=== PATIENT | male | born 1945 | race Caucasian/White ===

== ENCOUNTER → 2018-04-18 09:22 | Outpatient (CLI) | payer MEDICARE, OTHER, SELFPAY ==
[2018-04-18 10:42] LABS: AST(SGOT) 19 U/L (15-37); Alanine Aminotransfer ALT/SGPT 39 U/L (16-61); Albumin, Serum 3.9 g/dL (3.2-5.0); Alkaline Phosphatase 95 U/L (45-117); Anion Gap 9 (5-15); BUN 21 mg/dL (7-18); BUN/Creat Ratio 16.3 RATIO (10-20); Chloride 106 mmol/L (98-107); Cholesterol 246 mg/dL (200); Creatinine, Serum 1.29 mg/dL (0.70-1.30); EST Glomerular Filtration Rate 58 mL/min (>60); Est Glom Filt Rate - Afr Amer 71 mL/min (>60); Free T3 1.9 pg/mL (2.18-3.98); Globulin 3.8 g/dL (2.2-4.2); Glucose 117 mg/dL (74-106); High Density Lipoprotein 41 mg/dL; PSA,Total - Annual Screen 2.71 ng/mL (0.00-4.00); Potassium 4.2 mmol/L (3.5-5.1); Protein, Total 7.7 g/dL (6.4-8.2); Sodium Level 138 mmol/L (136-145); Triglycerides 330 mg/dL; Uric Acid 8.9 mg/dL (3.5-7.2); Very Low Density Lipoprotein 66 mg/dL (5-40)
== END ==
PROVIDERS: Family Provider Family Medicine; PCP Family Medicine; Visit Provider Family Medicine
DX: N40.0 Benign prostatic hyperplasia without lower urinary tract symptoms (principal); E78.5 Hyperlipidemia, unspecified; M10.9 Gout, unspecified; E03.9 Hypothyroidism, unspecified; I10 Essential (primary) hypertension; Z12.5 Encounter for screening for malignant neoplasm of prostate
CPT/HCPCS: 36415; 80048; 80061; 80076; 84153; 84443; 84481; 84550; G0103

== ENCOUNTER → 2018-07-18 08:48 | Outpatient (CLI) | payer MEDICARE, OTHER, SELFPAY ==
[2014-11-02 18:21] VITALS: BMI 38.9
[2018-07-18 10:51] LABS: Anion Gap 8 (5-15); BUN 24 mg/dL (7-18); BUN/Creat Ratio 16.9 RATIO (10-20); Calcium,Total 8.2 mg/dL (8.5-10.1); Chloride 110 mmol/L (98-107); Cholesterol 161 mg/dL (200); Creatinine, Serum 1.42 mg/dL (0.70-1.30); EST Glomerular Filtration Rate 52 mL/min (>60); Est Glom Filt Rate - Afr Amer 63 mL/min (>60); Free T3 2.6 pg/mL (2.18-3.98); Glucose 132 mg/dL (74-106); High Density Lipoprotein 40 mg/dL; Sodium Level 140 mmol/L (136-145); T4 Total, Thyroxin 10.5 ug/dL (4.5-12.1); Thyroid Stim Hormone (TSH) 0.55 uIU/mL (0.358-3.74); Triglycerides 216 mg/dL; Very Low Density Lipoprotein 43 mg/dL (5-40)
--- OUTSIDE RECORDS SUMMARY | 2018-09-03 02:03 | XMS RPT_ITS ---
:1945 Author Organization OHIP Care Team Providers Name Role Phone AKI GOMES Referring Unavailable Saurabh Ferrer Attending Unavailable Saurabh Ferrer Primary Care Unavailable Saurabh Ferrer Attending Unavailable Saurabh Ferrer Primary Care Unavailable PROBLEMS PROBLEMS DATE TYPE CONDITION / CODE ATTENDING STATUS SOURCE 07/18/2018 Unknown E03.9 - Saurabh Ferrer Active [place] Hypothyroidism, Community unspecified / Hospital E03.9(ICD-10) Repository 07/18/2018 Unknown I10 - Essential Saurabh Ferrer Active [place] (primary) Community hypertension / Hospital I10(ICD-10) Repository 04/18/2018 Unknown N40.0 - Benign Saurabh Ferrer Active [place] prostatic Community hyperplasia without Hospital lower urinary tract Repository symptoms / N40.0(ICD-10) 04/18/2018 Unknown E78.5 - Saurabh Ferrer Active [place] Hyperlipidemia, Community unspecified / Hospital E78.5(ICD-10) Repository 04/18/2018 Unknown M10.9 - Gout, Saurabh Ferrer Active [place] unspecified / Community M10.9(ICD-10) Hospital Repository 05/03/2015 Active Essential (primary) NA Active [place] hypertension / Clinic Main I10(ICD-10) [place] Repository 03/12/2012 Active Postprocedural NA Active [place] hypothyroidism / Clinic Main E89.0(ICD-10) [place] Repository 11/29/2009 Active Hyperlipidemia, NA Active [place] unspecified / Clinic Main E78.5(ICD-10) [place] Repository 09/20/2017 Active Prediabetes / NA Active [place] R73.03(ICD-10) Clinic Main [place] Repository 09/20/2017 Active Encounter for NA Active [place] screening for [facility] malignant neoplasm [place] of prostate / Repository Z12.5(ICD-10) PROCEDURES PROCEDURES No Procedure Records FoundRESULTS RESULTS BASIC METABOLIC Collected: 07/18/2018 Status: F Source: [place] PROFILE (BMP) 8:50 AM [facility] REPOSITORY TYPE CODE TESTS RESULT OUT OF RANGE REFERENCE UNITS LAB L501.0100 74-106 mg/dL High GLU 132 Result Comment: Fasting Glucose result greater than or equal to 126 mg/dL suggests DIABETES MELLITUS per A.D.A. criteria. Please note revised GLUCOSE reference range effective 2017. LAB L501.1000 7-18 mg/dL High BUN 24 LAB L501.1100 0.70-1.30 mg/dL High CREAT,SERUM 1.42 Result Comment: The validity of the calculated GFR AND GFRAA in patients over 70 years has not been determined. Clinical correlation is essential. LAB L501.1110 >60 mL/min Low EST GFR 52 Result Comment: Non- GFR Calc LAB L501.1115 >60 mL/min Normal EST GFR - AA 63 Result Comment: GFR Calc LAB L501.1300 10-20 RATIO Normal BUN/CRE 16.9 LAB L501.2200 8.5-10.1 mg/dL Low CA 8.2 LAB L501.5300 136-145 mmol/L NA Normal 140 LAB L501.5600 3.5-5.1 mmol/L K Normal 4.0 LAB L501.5900 98-107 mmol/L High CL 110 LAB L501.6100 21.0-32.0 mmol/L Normal CO2 22.0 LAB L501.6200 5-15 Normal GAP 8 Performed By: #### L500.2500, L500.4100, L501.36621, L501.9310, L501.9520 #### [facility] [address] [place], [address] LIPID PROFILE Collected: 07/18/2018 Status: F Source: [place] 8:50 AM [facility] REPOSITORY TYPE CODE TESTS RESULT OUT OF RANGE REFERENCE UNITS LAB L501.4900 200 mg/dL Normal CHOL 161 Result Comment: <200 mg/dL Desirable 200-240 mg/dL Borderline >240 mg/dL High Risk LAB L501.5000 mg/dL High TRIG 216 Result Comment: The drugs N-Acetylcysteine and Metamizole may falsely depress this assay. Serum Triglycerides Reference Interval Normal <150 mg/dL Borderline high 150 - 199 mg/dL High 200 - 499 mg/dL Very High > or = 500 mg/dL LAB L501.6400 mg/dL Normal HDL 40 Result Comment: The drugs N-Acetylcysteine and Metamizole may falsely depress this assay. Reference Range HDL <40 mg/dL Low HDL Cholesterol HDL >or= 60 mg/dL High HDL Cholesterol LAB L501.6500 0-130 mg/dL Normal LDL 78 LAB L501.6600 5-40 mg/dL High VLDL 43 Performed By: #### L500.2500, L500.4100, L501.90849, L501.9310, L501.9520 #### [facility] [address] [place], [place], [id number] FREE T3 Collected: 07/18/2018 Status: F Source: [place] 8:50 AM [facility] REPOSITORY TYPE CODE TESTS RESULT OUT OF RANGE REFERENCE UNITS LAB L501.15599 2.18-3.98 pg/mL Normal FREE T3 2.6 Performed By: #### L500.2500, L500.4100, L501.63824, L501.9310, L501.9520 #### [facility] [address] [place], [place], [id number] T4 TOTAL, THYROXIN Collected: 07/18/2018 Status: F Source: [place] 8:50 AM [facility] REPOSITORY TYPE CODE TESTS RESULT OUT OF RANGE REFERENCE UNITS LAB L501.9310 4.5-12.1 ug/dL T4 Normal THYROXIN 10.5 Performed By: #### L500.2500, L500.4100, L501.87001, L501.9310, L501.9520 #### [facility] [address] [place], [address] THYROID STIM HORMONE Collected: 07/18/2018 Status: F Source: [place] (TSH) 8:50 AM [facility] REPOSITORY TYPE CODE TESTS RESULT OUT OF RANGE REFERENCE UNITS LAB L501.9520 0.358-3.74 uIU/mL Normal TSH 0.55 Performed By: #### L500.2500, L500.4100, L501.60863, L501.9310, L501.9520 #### [facility] [address] [place], [place], [id number] BASIC METABOLIC Collected: 04/18/2018 Status: F Source: [place] PROFILE (BMP) 9:28 AM [facility] REPOSITORY TYPE CODE TESTS RESULT OUT OF RANGE REFERENCE UNITS LAB L501.0100 74-106 mg/dL High GLU 117 Result Comment: Fasting Glucose result from 100 to 125 mg/dL suggests IMPAIRED HOMEOSTASIS per A.D.A. criteria. Please note revised GLUCOSE reference range effective 2017. LAB L501.1000 7-18 mg/dL High BUN 21 LAB L501.1100 0.70-1.30 mg/dL Normal CREAT,SERUM 1.29 Result Comment: The validity of the calculated GFR AND GFRAA in patients over 70 years has not been determined. Clinical correlation is essential. LAB L501.1110 >60 mL/min Low EST GFR 58 Result Comment: Non- GFR Calc LAB L501.1115 >60 mL/min Normal EST GFR - AA 71 Result Comment: GFR Calc LAB L501.1300 10-20 RATIO Normal BUN/CRE 16.3 LAB L501.2200 8.5-10.1 mg/dL CA Normal 9.0 LAB L501.5300 136-145 mmol/L NA Normal 138 LAB L501.5600 3.5-5.1 mmol/L K Normal 4.2 LAB L501.5900 98-107 mmol/L CL Normal 106 LAB L501.6100 21.0-32.0 mmol/L Normal CO2 23.0 LAB L501.6200 5-15 Normal GAP 9 Performed By: #### L500.2500, L500.3400, L500.4100, L501.1400, L501.52130, L501.9520, L501.9910 #### [facility] [address] [place], [place], [id number] LIVER PROFILE Collected: 04/18/2018 Status: F Source: [place] 9:28 AM [facility] REPOSITORY TYPE CODE TESTS RESULT OUT OF RANGE REFERENCE UNITS LAB L501.1500 6.4-8.2 g/dL Normal T PROT 7.7 LAB L501.1800 3.2-5.0 g/dL Normal ALB 3.9 LAB L501.1950 2.2-4.2 g/dL Normal GLOB 3.8 LAB L501.4100 15-37 U/L Normal AST 19 LAB L501.4305 45-117 U/L Normal ALK P 95 LAB L501.4405 16-61 U/L Normal ALT 39 LAB L501.4600 0.20-1.00 mg/dL High T BILI 1.30 LAB L501.4700 0.00-0.30 mg/dL Normal D BILI 0.20 Performed By: #### L500.2500, L500.3400, L500.4100, L501.1400, L501.81598, L501.9520, L501.9910 #### [facility] [address] [place], [address] LIPID PROFILE Collected: 04/18/2018 Status: F Source: [place] 9:28 AM [facility] REPOSITORY TYPE CODE TESTS RESULT OUT OF RANGE REFERENCE UNITS LAB L501.4900 200 mg/dL High CHOL 246 Result Comment: <200 mg/dL Desirable 200-240 mg/dL Borderline >240 mg/dL High Risk LAB L501.5000 mg/dL High TRIG 330 Result Comment: The drugs N-Acetylcysteine and Metamizole may falsely depress this assay. Serum Triglycerides Reference Interval Normal <150 mg/dL Borderline high 150 - 199 mg/dL High 200 - 499 mg/dL Very High > or = 500 mg/dL LAB L501.6400 mg/dL Normal HDL 41 Result Comment: The drugs N-Acetylcysteine and Metamizole may falsely depress this assay. Reference Range HDL <40 mg/dL Low HDL Cholesterol HDL >or= 60 mg/dL High HDL Cholesterol LAB L501.6500 0-130 mg/dL High LDL 139 LAB L501.6600 5-40 mg/dL High VLDL 66 Performed By: #### L500.2500, L500.3400, L500.4100, L501.1400, L501.62738, L501.9520, L501.9910 #### [facility] [address] [place], [address] URIC ACID Collected: 04/18/2018 Status: F Source: [place] 9:28 AM [facility] REPOSITORY TYPE CODE TESTS RESULT OUT OF RANGE REFERENCE UNITS LAB L501.1400 3.5-7.2 mg/dL High URIC 8.9 Result Comment: The drugs N-Acetylcysteine and Metamizole may falsely depress this assay. Performed By: #### L500.2500, L500.3400, L500.4100, L501.1400, L501.20959, L501.9520, L501.9910 #### [facility] [address] [place], [address] FREE T3 Collected: 04/18/2018 Status: F Source: [place] 9:28 AM [facility] REPOSITORY TYPE CODE TESTS RESULT OUT OF RANGE REFERENCE UNITS LAB L501.62637 2.18-3.98 pg/mL Low FREE T3 1.9 Performed By: #### L500.2500, L500.3400, L500.4100, L501.1400, L501.94368, L501.9520, L501.9910 #### [facility] [address] [place], [address] THYROID STIM HORMONE Collected: 04/18/2018 Status: F Source: [place] (TSH) 9:28 AM [facility] REPOSITORY TYPE CODE TESTS RESULT OUT OF RANGE REFERENCE UNITS LAB L501.9520 0.358-3.74 uIU/mL High TSH 37.00 Performed By: #### L500.2500, L500.3400, L500.4100, L501.1400, L501.68425, L501.9520, L501.9910 #### [facility] [address] [place], [address] PSA,TOTAL - ANNUAL Collected: 04/18/2018 Status: F Source: [place] SCREEN 9:28 AM [facility] TYPE CODE TESTS RESULT OUT OF RANGE REFERENCE UNITS LAB L501.9910 0.00-4.00 ng/mL Normal PSA,TOT 2.71 SCREEN Result Comment: This test was performed using the TPSA assay method for the Octamer chemistry system. Values obtained with different assay methods cannot be used interchangably. When changing PSA assays in the course of monitoring a patient, additional sequential testing should be carried out to confirm baseline values. Performed By: #### L500.2500, L500.3400, L500.4100, L501.1400, L501.74136, L501.9520, L501.9910 #### [facility] [address] [facility] [place], [place], [id number] HEMOGLOBIN A1C Collected: 09/20/2017 Status: F Source: [place] 9:41 AM [facility] REPOSITORY TYPE CODE TESTS RESULT OUT OF REFERENCE UNITS RANGE LAB HGBA1C 4.3-5.6 % High Hemoglobin A1c 5.7 LAB HBA0 mg/dL Est. Average Glucose 117 Result Comment: eAG: (Estimated average glucose) is a calculated value from HgbA1c and is inside outside sales representative of the average blood glucose level in the last 2-3 month period. Performed By: #### HBA1C, CMP, LIPB, TSH, PSAS1 #### [facility] [address], [place] [address] COMP METABOLIC PANEL Collected: 09/20/2017 Status: F Source: [place] 9:41 AM [facility] REPOSITORY TYPE CODE TESTS RESULT OUT OF REFERENCE UNITS RANGE LAB TP 6.3-8.0 g/dL Protein, Total 6.9 LAB ALB 3.9-4.9 g/dL Albumin 4.1 LAB CA 8.5-10.2 mg/dL Calcium, Total 8.8 LAB TBIL 0.2-1.3 mg/dL Bilirubin, High Total 1.6 LAB ALKP 36-108 U/L Alkaline Phosphatase 88 LAB AST 14-40 U/L AST 22 LAB GLU 74-99 mg/dL Glucose High 117 Result Comment: The [place] Diabetes Association (ADA) provides guidance for cutoff values for fasting glucose and random glucose. The ADA defines fasting as no caloric intake for at least 8 hours. Fas ting plasma glucose results between 100 to 125 mg/dL indicate increased risk for diabetes (prediabetes). Fasting plasma glucose results greater than or equal to 126 mg/dL meet the criteria for diagnosis of diabetes. In the absence of unequivocal hyperglycemia, results should be confirmed by repeat testing. In a patient with classic symptoms of hyperglycemia or hyperglycemic crisis, random plasma glucose results greater than or equal to 200 mg/dL meet the criteria for diagnosis of diabetes. Reference: Standards of Medical Care in Diabetes 2016, [place] Diabetes Association. Diabetes Care. 2016.39(Suppl 1). LAB BUN 9-24 mg/dL BUN 14 LAB CRET 0.73-1.22 mg/dL Creatinine 1.07 LAB NA 136-144 mmol/L Sodium 138 LAB K 3.7-5.1 mmol/L Potassium 4.7 LAB CL 97-105 mmol/L Chloride 101 LAB CO2 22-30 mmol/L CO2 22 LAB AGAP 9-18 mmol/L Anion Gap 15 LAB ALT 10-54 U/L ALT 24 LAB GFRAA eGFR- Amer. >60 LAB GFRNAA . eGFR-All Other Races >60 Result Comment: eGFR (Estimated GFR) Units of measure: mL/min/1.73 meters squared eGFR is derived from the reexpressed MDRD Study equation using the following parameters: serum creatinine, age, gender and race. The creatinine assay has been calibrated to be traceable to IDMS. An eGFR <60 mL/min/1.73m2 for >3 months is consistent with chronic kidney disease. Refer to KDOQI guidelines for clinical interpretation. In patients with unstable renal function, e.g. those with acute kidney injury, the eGFR may not accurately reflect actual GFR. Performed By: #### HBA1C, CMP, LIPB, TSH, PSAS1 #### [facility] [address] [place], [place] [address] LIPID PANEL, BASIC Collected: 09/20/2017 Status: F Source: [place] 9:41 AM [facility] REPOSITORY TYPE CODE TESTS RESULT OUT OF REFERENCE UNITS RANGE LAB CHOL <200 mg/dL Cholesterol High 207 Result Comment: <200 mg/dL, Desirable 200-239 mg/dL, Borderline high >239 mg/dL, High LAB TRIGLY <150 mg/dL Triglyceride High 388 Result Comment: <150 mg/dL, Normal 150-199 mg/dL, Borderline high 200-499 mg/dL, High >499 mg/dL, Very high LAB HDL >39 mg/dL HDL-Cholesterol Low 33 Result Comment: 40-59 mg/dL, Acceptable >59 mg/dL, High: Negative risk factor for coronary heart disease <40 mg/dL, Low: Positive risk factor for coronary heart disease LAB LDL <100 mg/dL LDL-Cholesterol 96 Result Comment: <100 mg/dL, Optimal 100-129 mg/dL, Near optimal/above optimal 130-159 mg/dL, Borderline high 160-189 mg/dL, High >189 mg/dL, Very high Secondary prevention optimal LDL Cholesterol levels are recommended to be < 70 mg/dL LAB NONHDL <130 mg/dL Non HDL High Cholesterol 174 Result Comment: <130 mg/dL, Optimal 130-159 mg/dL, Near optimal/above optimal 160-189 mg/dL, Borderline high 190-219 mg/dL, High >219 mg/dL, Very high Secondary prevention optimal non HDL Cholesterol levels are recommended to be < 100 mg/dL LAB FT hrs Fasting Time 11 LAB VLDL <30 mg/dL High VLDL Cholesterol 78 LAB TCHDL <5.10 High TC:HDL Ratio 6.27 LAB LDLHDL <2.54 High LDL:HDL Ratio 2.91 Result Comment: Reference: 1. National Cholesterol Education Program ATP III Guideline At-A-Glance Quick Desk Reference: National Heart, Lung, and Blood Wink. National Institutes of Health. 2001: NIH Publication No. 01-3305. 2. An International Atherosclerosis Society position paper: global recommendations for the management of dyslipidemia: executive summary, Atherosclerosis. 2014: 232(2):410-413. Performed By: #### HBA1C, CMP, LIPB, TSH, PSAS1 #### [facility] [address] [place] [id number] TSH Collected: 09/20/2017 Status: F Source: [place] 9:41 AM [facility] REPOSITORY TYPE CODE TESTS RESULT OUT OF RANGE REFERENCE UNITS LAB TSH 0.400-5.500 uU/mL High TSH 16.690 Performed By: #### HBA1C, CMP, LIPB, TSH, PSAS1 #### [facility] [address] [place], [place] [address] PSA, SCREENING Collected: 09/20/2017 Status: F Source: [place] 9:41 AM [facility] REPOSITORY TYPE CODE TESTS RESULT OUT OF REFERENCE UNITS RANGE LAB PSAS 0.00-2.59 ng/mL PSA, Screening 2.48 Result Comment: Total PSA test methodology used is the Electrochemiluminescence Immunoassay. Performed By: #### HBA1C, CMP, LIPB, TSH, PSAS1 #### [facility] [address] [place] [address] ALLERGIES ALLERGIES DATE TYPE / CODE NAME / CODE REACTION SEVERITY SOURCE 11/02/2014 Drug chocolate Other Unknown [facility] Allergy/416 flavor/[id number] Hospital 563735(SNOM 3(RXNORM) Repository ED CT) 11/17/2010 Food/510554 CHOCOLATE OTHER: SEE C [facility] 000(SNOMED [facility] CT) Repository ENCOUNTERS ENCOUNTERS ADMIT/DISCHARGE ACCOUNT ADMITTING ENCOUNTER LOCATION SOURCE NUMBER CLASS 07/18/2018 [id number] [facility] ing:MFPLAB Repository 04/18/2018 [id number] [facility] ing:MFPLAB Repository 09/20/2017/09/20/[id number] Repository PAYERS PAYERS ENCOUNTER GUARANTOR PAYER SUBSCRIBER SOURCE 07/18/2018 Dago Grady Primary Dago [id number] Insurance:MEDICARE ButlerDOB: [place], [place] PART A [facility] [id number] [facility] [address]Jov: (330) Number: Repository [phone] ) [id number] Date:2018-07-18 07/18/2018 Secondary Dago P Kathy Insurance:AARPPolicy ButlerDOB: [facility] Number: [id number] [facility] [id number] Repository Date:[id number], [place] [address]TA: 07/18/2018 Tertiary NOT GIVENUNK [place] Insurance:SELF PAY [facility] Number: Effective Repository Date:2018-07-18 04/18/2018 Dago Grady Primary Dago [id number] Insurance:MEDICARE ButlerDOB: [place], [place] PART A BPolicy [id number] [facility] [address]Ndy: (330) Number: Repository [phone] () [id number] Date:2018-04-18 04/18/2018 Secondary Dago Chavez Insurance:AARTHAolicjacque LuqueB: Community Number: [id number] Hospital [id number] Repository Date:[id number], [place] [address]XH: 04/18/2018 Tertiary NOT GIVENADRIANA [place] Insurance:SELF PAY [facility] Number: Effective Repository Date:2018-04-18
== END ==
PROVIDERS: Family Provider Family Medicine; PCP Family Medicine; Visit Provider Family Medicine
DX: E03.9 Hypothyroidism, unspecified (principal); I10 Essential (primary) hypertension
CPT/HCPCS: 36415; 80048; 80061; 84436; 84443; 84481

== ENCOUNTER 2019-01-14 09:00 | Outpatient (RCR) | payer MEDICARE, OTHER, SELFPAY ==
--- NOTE | 2018-12-02 10:31 | HP.PTEVAL ---
Patient's Visit Information DAGO KAYE is a 73 year old M referred to Physical Therapy by Saurabh Ferrer MD with a diagnosis of Arthritis. Date of Evaluation: 12/02/18 Physical Therapist: Miky Awad PT, ATC - Visit Plan Frequency: 2x /Week Duration: 4 Weeks Plan: B LE strengthening, core stab ex's, balance and poprio ex's, nustep, and HEP - Subjective Findings: Pt reports he is here today because he is so limited with his function. Pt reports he is on disability secondary to LBP and fatigue. Pt reports he has limitations where he is not supposed to walk greater than 250 feet, and he is not supposed to lift over 20 pounds. Pt reports he has significant difficulty with stair negotiation. Pt reports he is able to walk to his mailbox, but has to stop and rest on his post for a while secondary to fatigue and pain. Pt reports he has had LBP for several years, but his pain has progressively worsened. Pt reports he uses a wheel chair on occasion, but his legs and arms fatigue very quickly. 4/10 LBP at rest, 10/10 at worst - Pain LBP Pain Intensity (Out of 10): 4 Pain Intensity Range: 10 - Objective Neuro: B LE sensation is WNL to light touch. B patellar reflex= 2/3. MMT: B hip flex, knee flex, and knee ext= 4-/5 and painful. All other LE MMT 5/5 throughout. ROM: Pt is severely limited with lumbar spine extension. Pt is moderately limited in all other planes. Gait: Pt is able to ambulate approximately 110 feet with standard cane until needing to sit down secondary to pain and fatigue. Balance. Pt is able to stand for 30 seconds with eyes open without deviation. Pt demonstrates significant forward and backwards sway with eyes closed - Goals Goal 1:: Decrease LBP x 50% to aid with increasing tolerance for ambulation Goal Time Frame: 4-6 Weeks Goal 2:: Increase B LE strength x 1 grade to aid with stair negotiation Goal Time Frame: 4-6 Weeks Goal 3:: Pt will be able to ambulate greater than 200' with cane until needing to rest to aid with community ambulation Goal Time Frame: 4-6 Weeks Goal 4:: I with HEP Goal Time Frame: 4-6 Weeks - Rehabilitation Potential Physical Therapy Diagnosis: Pt has LBP and B LE pain secondary to arthritis Rehabilitation Potential: Good - Anticipated Interventions Patient/Client Instruction: Educate patient on: Condition, Plan of Care For the Purpose of:: To improve self management Therapeutic Exercise to Include: Strength training, Endurance training, Balance training, Gait and locomotor training, Dynamic Lumbar Stabilization For the Purpose of:: To decrease pain, To increase ROM, To improve muscle performance and motor function Thank you for the opportunity to evaluate your patient. For Medicare and Medicare HMO plans, please review the plan of care and approve it. It will need to be FAXED BACK to us at [phone] for Medicare purposes. For Medicare only, by signing this I certify the plan of care. Please let me know if there are questions or concerns regarding this plan of care. Physician Signature: Date:
--- NOTE | 2019-01-14 09:59 | HP.PTDCSUM ---
HP - PT D/C Summary It has been my pleasure to treat DAGO KAYE under orders from Saurabh Ferrer MD, for the diagnosis of Arthritis for a total of 9 visit(s). Discharge Date: Please see the following information for a summary of their discharge status. - Subjective Subjective: PT had no significant improvement. He now has higher BP. - Pain LBP Pain Intensity (Out of 10): 4 - Objective Objective/Function: LBP is 4/10 this date. R hip flex and Knee flex= 4-/5. All other B LE measurements= 5/5. Pt is able to ambulate 93 feet until needing to rest secondary to shortness of breath. Pt is not interested in a HEP at this time - Goals Goal 1:: Decrease LBP x 50% to aid with increasing tolerance for ambulation Goal Progress: Progressing Goal 2:: Increase B LE strength x 1 grade to aid with stair negotiation Goal Progress: Not Progressing Goal 3:: Pt will be able to ambulate greater than 200' with cane until needing to rest to aid with community ambulation Goal 4:: I with HEP - Plan Plan: Discontinue, RTD - D/C Information If there are questions or concerns regarding this patient's physical therapy, please feel free to call me at [phone]. Thank you for the referral of this patient. Sincerely, Miky Awad, PT, ATC
== END 2019-01-14 10:14 | disposition home or self-care (01) ==
LOC: PT 09:00
PROVIDERS: Family Provider Family Medicine; PCP Family Medicine; Referring Provider Family Medicine; Visit Provider Family Medicine
DX: M19.90 Unspecified osteoarthritis, unspecified site (principal)
CPT/HCPCS: 97110; 97161; 97530

== ENCOUNTER → 2019-01-15 08:38 | Outpatient (CLI) | payer MEDICARE, OTHER, SELFPAY ==
[2019-01-15 10:32] LABS: Anion Gap 10 (5-15); BUN 29 mg/dL (7-18); BUN/Creat Ratio 23.4 RATIO (10-20); Calcium,Total 9.3 mg/dL (8.5-10.1); Chloride 105 mmol/L (98-107); Creatinine, Serum 1.24 mg/dL (0.70-1.30); EST Glomerular Filtration Rate 61 mL/min (>60); Est Glom Filt Rate - Afr Amer 74 mL/min (>60); Glucose 124 mg/dL (74-106); Potassium 4.4 mmol/L (3.5-5.1); Sodium Level 140 mmol/L (136-145); Thyroid Stim Hormone (TSH) 0.02 uIU/mL (0.358-3.74)
== END ==
PROVIDERS: Family Provider Family Medicine; PCP Family Medicine; Referring Provider Family Medicine; Visit Provider Family Medicine
DX: E03.9 Hypothyroidism, unspecified (principal); I10 Essential (primary) hypertension
CPT/HCPCS: 36415; 80048; 84443

== ENCOUNTER → 2019-07-24 11:20 | Outpatient (CLI) | payer MEDICARE, OTHER, SELFPAY ==
[2014-11-02 18:21] VITALS: BMI 38.9
[2019-07-24 14:55] LABS: ALB/GLOB Ratio 1.3 RATIO (0.9-2.4); AST(SGOT) 22 U/L (15-37); Alanine Aminotransfer ALT/SGPT 35 U/L (16-61); Albumin, Serum 4.1 g/dL (3.2-5.0); Alkaline Phosphatase 88 U/L (45-117); Anion Gap 7 (5-15); BUN 22 mg/dL (7-18); BUN/Creat Ratio 16.1 RATIO (10-20); Calcium,Total 9.5 mg/dL (8.5-10.1); Chloride 111 mmol/L (98-107); Cholesterol 288 mg/dL (200); Creatinine, Serum 1.37 mg/dL (0.70-1.30); EST Glomerular Filtration Rate 54 mL/min (>60); Est Glom Filt Rate - Afr Amer 66 mL/min (>60); Free T3 1.3 pg/mL (2.18-3.98); Globulin 3.2 g/dL (2.2-4.2); Glucose 111 mg/dL (74-106); High Density Lipoprotein 45 mg/dL; Potassium 4.3 mmol/L (3.5-5.1); Protein, Total 7.3 g/dL (6.4-8.2); Sodium Level 142 mmol/L (136-145); T4 Total, Thyroxin 1.8 ug/dL (4.5-12.1); Triglycerides 253 mg/dL; Very Low Density Lipoprotein 51 mg/dL (5-40)
== END ==
PROVIDERS: Family Provider Family Medicine; PCP Family Medicine; Referring Provider Family Medicine; Visit Provider Family Medicine
DX: I10 Essential (primary) hypertension (principal); E03.9 Hypothyroidism, unspecified; E78.5 Hyperlipidemia, unspecified
CPT/HCPCS: 36415; 80053; 80061; 84436; 84443; 84481

== ENCOUNTER → 2020-01-23 10:05 | Outpatient (CLI) | payer MEDICARE, OTHER, SELFPAY ==
[2014-11-02 18:21] VITALS: BMI 38.9
[2020-01-23 12:35] LABS: T3 Total - Triiodothyronine 0.38 ng/mL (0.6-1.81)
[2020-01-23 13:57] LABS: Anion Gap 8 (5-15); BUN 24 mg/dL (7-18); BUN/Creat Ratio 15.9 RATIO (10-20); Calcium,Total 9.3 mg/dL (8.5-10.1); Chloride 104 mmol/L (98-107); Cholesterol 319 mg/dL (200); Creatinine, Serum 1.51 mg/dL (0.70-1.30); EST Glomerular Filtration Rate 48 mL/min (>60); Est Glom Filt Rate - Afr Amer 59 mL/min (>60); Glucose 139 mg/dL (74-106); High Density Lipoprotein 45 mg/dL; Potassium 4.3 mmol/L (3.5-5.1); Sodium Level 138 mmol/L (136-145); T4 Total, Thyroxin 3.9 ug/dL (4.5-12.1); Triglycerides 278 mg/dL; Very Low Density Lipoprotein 56 mg/dL (5-40)
== END ==
PROVIDERS: PCP Family Medicine; Visit Provider Family Medicine
DX: E03.9 Hypothyroidism, unspecified (principal); I10 Essential (primary) hypertension
CPT/HCPCS: 36415; 80048; 80061; 84436; 84443; 84480

== ENCOUNTER → 2020-03-01 08:33 | Outpatient (CLI) | payer MEDICARE, OTHER, SELFPAY ==
[2014-11-02 18:21] VITALS: BMI 38.9
[2020-03-01 10:17] LABS: Anion Gap 5 (5-15); BUN 20 mg/dL (7-18); BUN/Creat Ratio 15.4 RATIO (10-20); Calcium,Total 8.8 mg/dL (8.5-10.1); Chloride 109 mmol/L (98-107); EST Glomerular Filtration Rate 58 mL/min (>60); Est Glom Filt Rate - Afr Amer 70 mL/min (>60); Glucose 133 mg/dL (74-106); Potassium 4.1 mmol/L (3.5-5.1); Sodium Level 138 mmol/L (136-145); T3 Total - Triiodothyronine 1.28 ng/mL (0.6-1.81); T4 Total, Thyroxin 11.2 ug/dL (4.5-12.1); Thyroid Stim Hormone (TSH) 5.24 uIU/mL (0.358-3.74)
== END ==
PROVIDERS: PCP Family Medicine; Visit Provider Family Medicine
DX: E03.9 Hypothyroidism, unspecified (principal); I10 Essential (primary) hypertension
CPT/HCPCS: 36415; 80048; 84436; 84443; 84480

== ENCOUNTER → 2020-04-26 10:29 | Outpatient (CLI) | payer MEDICARE, OTHER, SELFPAY ==
[2014-11-02 18:21] VITALS: BMI 38.9
[2020-04-26 14:03] LABS: Anion Gap 9 (5-15); BUN 17 mg/dL (7-18); BUN/Creat Ratio 12.7 RATIO (10-20); Calcium,Total 8.9 mg/dL (8.5-10.1); Chloride 109 mmol/L (98-107); Cholesterol 249 mg/dL (200); Creatinine, Serum 1.34 mg/dL (0.70-1.30); EST Glomerular Filtration Rate 56 mL/min (>60); Est Glom Filt Rate - Afr Amer 67 mL/min (>60); Glucose 127 mg/dL (74-106); High Density Lipoprotein 38 mg/dL; Potassium 4.3 mmol/L (3.5-5.1); Sodium Level 141 mmol/L (136-145); Triglycerides 305 mg/dL; Very Low Density Lipoprotein 61 mg/dL (5-40)
== END ==
PROVIDERS: PCP Family Medicine; Referring Provider Family Medicine; Visit Provider Family Medicine
DX: E03.9 Hypothyroidism, unspecified (principal); E78.5 Hyperlipidemia, unspecified; R73.01 Impaired fasting glucose
CPT/HCPCS: 36415; 80048; 80061; 84443

== ENCOUNTER → 2020-10-25 10:35 | Outpatient (CLI) | payer MEDICARE, OTHER, SELFPAY ==
[2014-11-02 18:21] VITALS: BMI 38.9
[2020-10-25 12:38] LABS: AST(SGOT) 18 U/L (15-37); Alanine Aminotransfer ALT/SGPT 32 U/L (16-61); Albumin, Serum 3.8 g/dL (3.2-5.0); Alkaline Phosphatase 102 U/L (45-117); Anion Gap 5 (5-15); BUN 22 mg/dL (7-18); BUN/Creat Ratio 18.5 RATIO (10-20); Calcium,Total 9.2 mg/dL (8.5-10.1); Chloride 109 mmol/L (98-107); Cholesterol 244 mg/dL (200); Creatinine, Serum 1.19 mg/dL (0.70-1.30); EST Glomerular Filtration Rate 64 mL/min (>60); Est Glom Filt Rate - Afr Amer 77 mL/min (>60); Free T3 3.1 pg/mL (2.18-3.98); Globulin 3.7 g/dL (2.2-4.2); Glucose 122 mg/dL (74-106); High Density Lipoprotein 44 mg/dL; Potassium 4.1 mmol/L (3.5-5.1); Protein, Total 7.5 g/dL (6.4-8.2); Sodium Level 140 mmol/L (136-145); T4 Free Direct 1.93 ng/dL (0.76-1.46); Thyroid Stim Hormone (TSH) 0.02 uIU/mL (0.358-3.74); Triglycerides 199 mg/dL; Very Low Density Lipoprotein 40 mg/dL (5-40)
[2020-10-25 13:17] LABS: Microalbumin:Creatinine Ratio 1123.8 mg/g CRE (<30 mg/g CRE)
== END ==
PROVIDERS: PCP Family Medicine; Visit Provider Family Medicine
DX: E78.5 Hyperlipidemia, unspecified (principal); E03.9 Hypothyroidism, unspecified; I10 Essential (primary) hypertension
CPT/HCPCS: 36415; 80053; 80061; 82043; 82570; 84439; 84443; 84481

== ENCOUNTER → 2020-11-17 10:16 | Outpatient (CLI) | payer MEDICARE, OTHER, SELFPAY ==
--- NOTE | 2020-11-17 10:23 | VDLE_ITS ---
Reason For Study: Swelling Procedure LEFT Exam performed in department. GSV is normal. This is a venous duplex using B-mode, color CFV is compressible, spontaneous, phasic, flow and spectral Doppler. competent, and demonstrates normal A preliminary report was called and/or faxed augmentation. to Dr. Arroyo. FV is compressible, spontaneous, phasic, competent and demonstrates normal augmentation. POP V is compressible, spontaneous, phasic, competent and demonstrates normal augmentation. T/P Trunk is compressible. PTV is compressible. LT PerV is compressible. Very difficult to visualize calf veins due to edema and patient body habitus. VL/Venous Duplex US, Unilateral Interpretation Summary Deep veins of the left lower extremity are patent and compressible segmentally. There is no evidence of left lower extremity deep vein thrombosis. Valvular competence appears intac t within the proximal deep venous system on the left . The left great saphenous vein appears patent a nd compressible segmentally. The deep veins of the left calf were not well visualized. Ordering Physician: Mesha Arroyo Referring Physician: Saurabh Ferrer Performed By: Maria Del Carmen Hollis, KASI, RVT
== END ==
PROVIDERS: PCP Family Medicine; Referring Provider Family Medicine; Visit Provider Family Medicine
DX: M79.89 Other specified soft tissue disorders (principal)
CPT/HCPCS: 93971

== ENCOUNTER → 2021-01-17 09:29 | Outpatient (CLI) | payer MEDICARE, OTHER, SELFPAY ==
[2014-11-02 18:21] VITALS: BMI 38.9
[2021-01-17 10:06] LABS: Absolute Neutrophil Count 6.5 X10^3/uL (2.0-7.7); Basophil# 0.05 X10^3/uL; Basophil% 0.6 % (0-1); Eosinophil# 0.25 X10^3/uL; Eosinophils% 2.8 % (0-5); Hematocrit 50.1 % (40-54); Hemoglobin 16.9 g/dL (13.0-16.5); Lymphocyte % 16.9 % (19-41); Mean Corp Hgb Conc 33.7 g/dL (32-36); Mean Platelet Vol. 10.3 fl (6.2-12.0); Monocyte# 0.58 X10^3/uL; Monocyte% 6.5 % (0-10); NRBC Flagged by Analyzer 0 % (0-5); Neutrophil # 6.48 X10^3/uL (2.7-7.7); Neutrophil % 72.8 % (47-70); Platelet Count 203 K/mm3 (150-450); RBC Distribution Width CV 13.2 % (11.6-14.6); Red Blood Count 5.63 M/mm3 (4.6-6.2); White Blood Count 8.9 K/mm3 (4.4-11.0)
[2021-01-17 10:23] LABS: Hemoglobin A1c 6.2 % (3.8-5.6)
[2021-01-17 10:40] LABS: Anion Gap 8 (5-15); BUN 28 mg/dL (7-18); BUN/Creat Ratio 21.7 RATIO (10-20); Calcium,Total 9.2 mg/dL (8.5-10.1); Chloride 106 mmol/L (98-107); Cholesterol 243 mg/dL (200); Creatinine, Serum 1.29 mg/dL (0.70-1.30); EST Glomerular Filtration Rate 58 mL/min (>60); Est Glom Filt Rate - Afr Amer 70 mL/min (>60); Free T3 2.4 pg/mL (2.18-3.98); Glucose 133 mg/dL (74-106); High Density Lipoprotein 38 mg/dL; Potassium 4.4 mmol/L (3.5-5.1); Sodium Level 139 mmol/L (136-145); T4 Free Direct 1.27 ng/dL (0.76-1.46); Thyroid Stim Hormone (TSH) 0.19 uIU/mL (0.358-3.74); Triglycerides 288 mg/dL; Very Low Density Lipoprotein 58 mg/dL (5-40)
== END ==
PROVIDERS: PCP Family Medicine; Visit Provider Family Medicine
DX: I10 Essential (primary) hypertension (principal); R60.9 Edema, unspecified; E03.9 Hypothyroidism, unspecified; R73.9 Hyperglycemia, unspecified; Z12.5 Encounter for screening for malignant neoplasm of prostate
CPT/HCPCS: 36415; 80048; 80061; 83036; 84439; 84443; 84481; 85025

== ENCOUNTER → 2021-04-15 08:39 | Outpatient (CLI) | payer MEDICARE, OTHER, SELFPAY ==
[2021-04-15 12:39] LABS: Hemoglobin A1c 5.9 % (3.8-5.6)
[2021-04-15 12:40] LABS: Cholesterol 165 mg/dL (200); Free T3 2.5 pg/mL (2.18-3.98); High Density Lipoprotein 41 mg/dL; PSA,Total - Annual Screen 2.28 ng/mL (0.00-4.00); Thyroid Stim Hormone (TSH) 0.42 uIU/mL (0.358-3.74); Triglycerides 240 mg/dL; Very Low Density Lipoprotein 48 mg/dL (5-40)
== END ==
PROVIDERS: PCP Family Medicine; Referring Provider Family Medicine; Visit Provider Family Medicine
DX: R73.9 Hyperglycemia, unspecified (principal); E78.5 Hyperlipidemia, unspecified; E03.9 Hypothyroidism, unspecified; Z12.5 Encounter for screening for malignant neoplasm of prostate
CPT/HCPCS: 36415; 80061; 83036; 84153; 84443; 84481; G0103

== ENCOUNTER 2021-09-23 08:26 | Outpatient (CLI) | payer MEDICARE, OTHER, SELFPAY ==
[2021-09-23 10:25] LABS: Anion Gap 9 (5-15); BUN 26 mg/dL (7-18); BUN/Creat Ratio 19.5 RATIO (10-20); Calcium,Total 9.2 mg/dL (8.5-10.1); Chloride 105 mmol/L (98-107); Cholesterol 187 mg/dL (200); Creatinine, Serum 1.33 mg/dL (0.70-1.30); EST Glomerular Filtration Rate 56 mL/min (>60); Est Glom Filt Rate - Afr Amer 68 mL/min (>60); Free T3 2.1 pg/mL (2.18-3.98); Glucose 123 mg/dL (74-106); High Density Lipoprotein 39 mg/dL; Potassium 4.5 mmol/L (3.5-5.1); Sodium Level 139 mmol/L (136-145); T4 Free Direct 1.27 ng/dL (0.76-1.46); Thyroid Stim Hormone (TSH) 0.61 uIU/mL (0.358-3.74); Triglycerides 224 mg/dL; Very Low Density Lipoprotein 45 mg/dL (5-40)
== END 2021-09-23 23:59 | disposition home or self-care (01) ==
LOC: MFPLAB 08:28
PROVIDERS: PCP Family Medicine; Referring Provider Family Medicine; Visit Provider Family Medicine
DX: E03.9 Hypothyroidism, unspecified (principal); I10 Essential (primary) hypertension
CPT/HCPCS: 36415; 80048; 80061; 84439; 84443; 84481

== ENCOUNTER 2021-10-24 14:04 | Outpatient (CLI) | payer MEDICARE, OTHER, SELFPAY ==
[2021-10-24 18:11] LABS: Anion Gap 5 (5-15); BUN 20 mg/dL (7-18); BUN/Creat Ratio 14.4 RATIO (10-20); Calcium,Total 9.1 mg/dL (8.5-10.1); Chloride 108 mmol/L (98-107); Creatinine, Serum 1.39 mg/dL (0.70-1.30); EST Glomerular Filtration Rate 53 mL/min (>60); Est Glom Filt Rate - Afr Amer 64 mL/min (>60); Glucose 85 mg/dL (74-106); Potassium 4.3 mmol/L (3.5-5.1); Sodium Level 136 mmol/L (136-145)
== END 2021-10-24 23:59 | disposition home or self-care (01) ==
LOC: MFPLAB 14:08
PROVIDERS: PCP Family Medicine; Referring Provider Family Medicine; Visit Provider Family Medicine
DX: R60.9 Edema, unspecified (principal)
CPT/HCPCS: 36415; 80048; 83880

== ENCOUNTER 2021-11-01 12:40 | Outpatient (CLI) | payer MEDICARE, OTHER, SELFPAY ==
--- NOTE | 2021-11-01 12:45 | ECHOCS_ITS ---
Reason For Study: CHF Procedure This was a 2D Doppler, Color Flow transthoracic echocardiogram. The study was technically difficult. Due to body habitus. Contrast injection was performed. Exam performed in department. Left Ventricle Normal LV size. The estimated ejection fraction is 65 %. Normal diastology for age. No regional wall motion abnormalities noted. Right Ventricle Normal RV size. Normal systolic function. Atria Normal left atrium. Normal right atrium. No doppler evidence for ASD. Mitral Valve There is moderate mitral annular calcification. There is no mitral valve stenosis. No mitral valve insufficiency. Tricuspid Valve There is no tricuspid stenosis. Trivial tricuspid valve insufficiency. Unable to estimate RV systolic pressure due to insufficient tricuspid regurgitant envelope. Aortic Valve Trisinus/trileaflet aortic valve. There is no aortic stenosis. No aortic valve insufficiency. Pulmonic Valve There is no pulmonic valvular stenosis. No pulmonic valve insufficiency identified. Great Vessels Normal aortic root. Pericardium/Pleural No pericardial effusion. Medication Diluted definity 4.0ml given slow IV push to enhance endocardial definition. MMode/2D Measurements & Calculations LVIDd: 5.1 cm IVSd: 1.2 cm Ao root diam: 3.0 cm LVIDs: 3.5 cm LVPWd: 1.2 cm RVDd: 3.4 cm FS: 31.0 % LAV(MOD-bp): 75.3 ml LVAd ap4: 40.7 cm2 LVAd ap2: 28.2 cm2 LAV(MOD-bp) Indexed: 27.8 ml/m2 LVLd ap4: 9.4 cm LVLd ap2: 9.5 cm LAV(MOD-sp2): 70.2 ml EDV(MOD-sp4): 145.2 ml EDV(MOD-sp2): 69.6 ml LAV(MOD-sp4): 76.1 ml EDV(sp4-el): 149.2 ml EDV(sp2-el): 71.3 ml LVAs ap4: 24.0 cm2 LVAs ap2: 15.8 cm2 LVLs ap4: 8.0 cm LVLs ap2: 7.1 cm ESV(MOD-sp4): 59.2 ml ESV(MOD-sp2): 29.4 ml ESV(sp4-el): 60.8 ml ESV(sp2-el): 29.6 ml EF(MOD-sp4): 59.2 % EF(MOD-sp2): 57.7 % EF(sp4-el): 59.3 % SV(MOD-sp4): 86.0 ml SV(MOD-sp2): 40.2 ml SV(sp4-el): 88.4 ml LA A4 area: 24.2 cm2 LA dimension(2D): 3.9 cm RA A4 area: 20.2 cm2 Time Measurements MV dec time: 0.27 sec Doppler Measurements & Calculations MV E max adalid: 87.4 cm/sec Lat Peak E' Adalid: 8.0 cm/sec Med Peak E' Adalid: 6.3 cm/sec MV A max adalid: 109.2 cm/sec E/E' lat: 10.9 E/E' med: 14.0 MV E/A: 0.80 Ao V2 max: 144.1 cm/sec LV V1 max: 128.7 cm/sec PA V2 max: 107.3 cm/sec Ao max P.3 mmHg LV V1 max P.6 mmHg ECHO/Echo Complete W/ Contrast Interpretation Summary The estimated ejection fraction is 65 %. No significant valvular abnormalities Ordering Physician: Saurabh Ferrer Referring Physician: Saurabh Ferrer Performed By: Isabel Stubbs, RDJEVON, RVT
== END 2021-11-01 23:59 | disposition home or self-care (01) ==
LOC: CVS 12:42
PROVIDERS: PCP Family Medicine; Referring Provider Family Medicine; Visit Provider Family Medicine
DX: I50.9 Heart failure, unspecified (principal); R06.02 Shortness of breath
CPT/HCPCS: 93306; Q9957; A4216; C8929

== ENCOUNTER → 2021-12-07 | Outpatient (CLI) | payer MEDICARE, OTHER, SELFPAY ==
[2021-12-07 15:33] LABS: Anion Gap 7 (5-15); BUN 33 mg/dL (7-18); BUN/Creat Ratio 22.1 RATIO (10-20); Calcium,Total 9.5 mg/dL (8.5-10.1); Chloride 106 mmol/L (98-107); Creatinine, Serum 1.49 mg/dL (0.70-1.30); EST Glomerular Filtration Rate 49 mL/min (>60); Est Glom Filt Rate - Afr Amer 59 mL/min (>60); Glucose 103 mg/dL (74-106); Potassium 4.3 mmol/L (3.5-5.1); Sodium Level 138 mmol/L (136-145)
== END | disposition home or self-care (01) ==
LOC: MFPLAB 11:46
PROVIDERS: PCP Family Medicine; Referring Provider Family Medicine; Visit Provider Family Medicine
DX: I50.9 Heart failure, unspecified (principal)
CPT/HCPCS: 36415; 80048

== ENCOUNTER → 2022-03-15 | Outpatient (CLI) | payer MEDICARE, OTHER, SELFPAY ==
[2022-03-15 12:31] LABS: BNP,B-Type NATRIURETIC PEPTIDE 109.9 pg/mL (0-100)
[2022-03-15 12:41] LABS: Anion Gap 6 (5-15); BUN 21 mg/dL (7-18); BUN/Creat Ratio 14.2 RATIO (10-20); Calcium,Total 9.3 mg/dL (8.5-10.1); Chloride 103 mmol/L (98-107); Creatinine, Serum 1.48 mg/dL (0.70-1.30); EST Glomerular Filtration Rate 49 mL/min (>60); Est Glom Filt Rate - Afr Amer 60 mL/min (>60); Glucose 175 mg/dL (74-106); Potassium 4.3 mmol/L (3.5-5.1); Sodium Level 136 mmol/L (136-145)
== END | disposition home or self-care (01) ==
LOC: MFPLAB 11:19
PROVIDERS: PCP Family Medicine; Referring Provider Family Medicine; Visit Provider Family Medicine
DX: I50.9 Heart failure, unspecified (principal)
CPT/HCPCS: 36415; 80048; 83880

== ENCOUNTER → 2022-05-26 | Outpatient (CLI) | payer MEDICARE, OTHER, SELFPAY ==
[2022-05-26 10:34] LABS: Anion Gap 8 (5-15); BUN 29 mg/dL (7-18); Chloride 112 mmol/L (98-107); Cholesterol 160 mg/dL (200); Creatinine, Serum 1.53 mg/dL (0.70-1.30); EST Glomerular Filtration Rate 47 mL/min (>60); Est Glom Filt Rate - Afr Amer 57 mL/min (>60); Free T3 2.8 pg/mL (2.18-3.98); Glucose 147 mg/dL (74-106); High Density Lipoprotein 35 mg/dL; Potassium 4.4 mmol/L (3.5-5.1); Sodium Level 144 mmol/L (136-145); T4 Free Direct 1.47 ng/dL (0.76-1.46); Thyroid Stim Hormone (TSH) 0.03 uIU/mL (0.358-3.74); Triglycerides 230 mg/dL; Very Low Density Lipoprotein 46 mg/dL (5-40)
== END | disposition home or self-care (01) ==
LOC: MFPLAB 08:50
PROVIDERS: PCP Family Medicine; Referring Provider Family Medicine; Visit Provider Family Medicine
DX: E03.9 Hypothyroidism, unspecified (principal); I10 Essential (primary) hypertension
CPT/HCPCS: 36415; 80048; 80061; 84439; 84443; 84481

== ENCOUNTER → 2022-09-06 | Outpatient (CLI) | payer MEDICARE, OTHER, SELFPAY ==
[2022-09-06 13:02] LABS: Thyroid Stim Hormone (TSH) 0.22 uIU/mL (0.358-3.74)
== END | disposition home or self-care (01) ==
LOC: MFPLAB 11:06
PROVIDERS: PCP Family Medicine; Referring Provider Family Medicine; Visit Provider Family Medicine
DX: E03.9 Hypothyroidism, unspecified (principal)
CPT/HCPCS: 36415; 84443

== ENCOUNTER → 2022-11-30 | Outpatient (CLI) | payer MEDICARE, OTHER, SELFPAY ==
[2022-11-30 13:07] LABS: Anion Gap 7 (5-15); BUN 33 mg/dL (7-18); Calcium,Total 9.8 mg/dL (8.5-10.1); Chloride 108 mmol/L (98-107); Cholesterol 168 mg/dL (200); Creatinine, Serum 1.65 mg/dL (0.70-1.30); EST Glomerular Filtration Rate 43 mL/min (>60); Est Glom Filt Rate - Afr Amer 53 mL/min (>60); Free T3 2.3 pg/mL (2.18-3.98); Glucose 184 mg/dL (74-106); High Density Lipoprotein 36 mg/dL; Potassium 4.4 mmol/L (3.5-5.1); Sodium Level 136 mmol/L (136-145); T4 Free Direct 1.51 ng/dL (0.76-1.46); Thyroid Stim Hormone (TSH) 0.26 uIU/mL (0.358-3.74); Triglycerides 283 mg/dL; Very Low Density Lipoprotein 57 mg/dL (5-40)
== END | disposition home or self-care (01) ==
LOC: MFPLAB 09:26
PROVIDERS: PCP Family Medicine; Visit Provider Family Medicine
DX: I10 Essential (primary) hypertension (principal); E03.9 Hypothyroidism, unspecified
CPT/HCPCS: 36415; 80048; 80061; 84439; 84443; 84481

== ENCOUNTER → 2022-12-11 | Outpatient (CLI) | payer MEDICARE, OTHER, SELFPAY ==
--- NOTE | 2022-12-11 13:36 | STRESSREP_ITS ---
Stress Test Report Date: 12/11/2022 Procedure: Pharmacologic stress nuclear imaging study Indications: Chest pain Consent: Per the patient Procedure: The patient underwent pharmacologic (Regadenoson) evaluation with a peak heart rate of 90 beats per minute (62%predicted maximal heart rate) and a peak blood pressure of 148/70 mmHg. The baseline ECG demonstrated normal sinus rhythm. EKG during lexiscan infusion revealed no significant ischemic changes. EKG post infusion revealed no significant ischemic changes [There were no cardiac dysrhythmias pretest, during pharmacologic infusion, or recovery]. [There was no complaint of chest discomfort during pharmacologic infusion or recovery]. The examination was discontinued secondary to completion of protocol. Impression: 1. Lexiscan stress test test is negative for Lexiscan infusion induced EKG changes of ischemia. 2. Lexiscan stress test test is negative for Lexiscan infusion induced chest pain. 3. Results of the nuclear portion of the test is as below Myocardial perfusion imaging study: Technique: The patient was injected with 14.8 millicuries of technetium 99m Cardiolite and subsequently rest SPECT Cardiolite nuclear imaging was obtained in the horizontal long, vertical long, and short axis views. The patient underwent pharmacologic [Regadenoson 0.4mg] evaluation. Please see above for details. The patient was injected with 44.7 millicuries of technetium 99m Cardiolite and subsequently stress SPECT Cardiolite nuclear imaging was obtained in the horizontal long, vertical long, and short axis views. A gated Cardiolite study at peak stress was obtained. Interpretation: Rest and stress SPECT Cardiolite nuclear imaging status post realignment, normalization, and attenuation correction demonstrate no evidence of significant ischemia or infarction. Gated images reveal no significant regional wall motion abnormalities. The reported LVEF is 53%. Impression: 1. There is no evidence of significant ischemia or infarction. 2. Estimated ejection fraction is 53%. This note was generated with [employer] software. It may contain incorrect words, spelling, and punctuation that were not noted in checking the note before signing.
== END | disposition home or self-care (01) ==
LOC: CVS 06:45
PROVIDERS: PCP Family Medicine; Referring Provider Family Medicine; Visit Provider Family Medicine
DX: R06.02 Shortness of breath (principal)
CPT/HCPCS: 78452; 93017; A9500; A4216; J2785

== ENCOUNTER → 2022-12-20 | Outpatient (CLI) | payer MEDICARE, OTHER, SELFPAY ==
[2022-12-20 18:50] LABS: Thyroid Stim Hormone (TSH) 0.15 uIU/mL (0.358-3.74)
== END | disposition home or self-care (01) ==
LOC: MFPLAB 15:20
PROVIDERS: PCP Family Medicine; Visit Provider Family Medicine
DX: E03.9 Hypothyroidism, unspecified (principal)
CPT/HCPCS: 36415; 84443

== ENCOUNTER → 2022-12-29 | Outpatient (CLI) | payer MEDICARE, OTHER, SELFPAY ==
--- NOTE | 2022-12-29 08:50 | BI_ITS ---
MAMMOGRAPHY - BILATERAL DIAGNOSTIC REASON FOR EXAM: Male, 77 years old. Nipple inversion for one month. PERTINENT HISTORY: Non-contributory. TECHNIQUE: Digital examination. Mediolateral oblique (MLO) and craniocaudad (CC) views of both breasts were obtained. CAD: CAD was performed on this study. COMPARISON: None. FINDINGS: Fatty replacement of the right breast which is otherwise normal. Dense spiculated mass in the subareolar region within the left breast with marked nipple thickening and nipple retraction. Ultrasound of the left breast showed a highly suspicious hypoechoic mass with shadowing and 3 suspicious axillary lymph nodes (see detailed left breast ultrasound report). BI/DIAG MAMM W/CAD, BILAT IMPRESSION: Highly suspicious findings in the left breast. Ultrasound-guided biopsy of the mass and axillary lymph nodes is recommended. ASSESSMENT CATEGORY: BIRADS Category 5: Highly Suggestive of Malignancy - Appropriate Action Should Be Taken. A letter regarding these results will be sent to the patient by the facility within 30 days. FOLLOW UP RECOMMENDATION: Ultrasound Biopsy Recommended. (L) Approximately 10% of breast cancers are not detected by mammography. A normal mammogram should not delay biopsy of a clinically suspicious abnormality. Electronically Signed: Patrice Keenan MD at 13:16 EDT ,
--- NOTE | 2022-12-29 08:51 | US_ITS ---
STUDY: ULTRASOUND BREAST - LEFT REASON FOR EXAM: Male, 77 years old. Workup of nipple thickening and retraction with mass within the left breast. TECHNIQUE: Axial and longitudinal images of the LEFT breast were performed with a high resolution ultrasound transducer. # OF IMAGES: 83 COMPARISON: Bilateral diagnostic mammogram performed today. FINDINGS: LEFT Breast: Examination of the left breast shows a dense hypoechoic irregular retroareolar mass measuring 1.8 cm x 1.5 cm x 1.2 cm with increased vascularity and shadowing. Mass is highly suspicious for malignancy. 3. Left axillary lymph nodes with heterogeneous ben, one measuring 2.5 cm x 1.5 cm x 1 cm, one measuring 1.1 cm x 8 mm x 6 mm and another within the axillary tail of the breast measuring 9 mm x 6 mm x 4 mm. All of these lymph nodes are suspicious for malignancy. Ultrasound-guided biopsy of the retroareolar mass and lymph nodes is recommended, as outlined on the diagnostic mammogram report. US/Breast Limited Unilateral IMPRESSION: Highly suspicious retroareolar left breast mass and left axillary lymph nodes. Ultrasound-guided biopsy, as outlined above, for histologic confirmation is recommended. ASSESSMENT CATEGORY: BIRADS Category 5: Highly Suggestive of Malignancy - Appropriate Action Should Be Taken. A letter regarding these results will be sent to the patient by the facility within 30 days. Electronically Signed: Patrice Keenan MD at 13:19 EDT ,
== END | disposition home or self-care (01) ==
PROVIDERS: PCP Family Medicine; Referring Provider Family Medicine; Visit Provider Family Medicine
DX: Q83.9 Congenital malformation of breast, unspecified (principal); R92.8 Other abnormal and inconclusive findings on diagnostic imaging of breast
CPT/HCPCS: 76642; 77062; 77066; G0279

== ENCOUNTER → 2023-01-02 | Outpatient (CLI) | payer MEDICARE, OTHER, SELFPAY ==
--- NOTE | 2023-01-02 | BRBX_PTH ---
PATIENT: DAGO KAYE LOC: [facility] U#:[id number] AGE/SX: 77/M ROOM: RE01/02/[address]: Dr. Du Mendez MD : 1945 BED: DIS: 01/02/2023 SPEC #: [id number] RECD: 01/02/23 15:08 STATUS: JOAO SHERWOOD #: [id number] SHANICE: 01/02/23 00:[address]: Du Mendez DEPT: SURGICAL PATHOLOGY RECD BY: Beata Villarreal ENTERED: 01/03/23 11:40 SP TYPE: BREAST BX OTHR DR: Dr. Saurabh Ferrer MD Tissues: A - Left breast, NOS B - LYMPH NODE BIOPSY Procedures: Surgery Specimen Level IV HEADER OPERATION: Left breast lump biopsy, left lymph node biopsy PRE-OP DIAGNOSIS: Left breast and lymph node biopsy TISSUE SUBMITTED: A ? Left breast lump tissue, B ? Left lymph node tissue MICROSCOPIC DIAGNOSIS A. Left breast lump, needle core biopsy: Invasive ductal carcinoma with the follow characteristics: Maximal length ? 13.5 millimeters Nuclear grade ? 2/3. See comment. B. Left lymph node, biopsy: Fragments of benign adipose tissue. AM:glenys 01/04/2023 COMMENT The specimen is evaluated at the time of touch prints by Dr. Collins. Immediate Evaluation = Rare lymphocytes are noted. A. Immunohistochemistry ([id number]) supports the above diagnosis. MICROSCOPIC DESCRIPTION Slides are reviewed. GROSS DESCRIPTION A - Received in formalin is one container labeled with the patient's name and designated ?left breast lump tissue. The specimen consists of multiple elongated fragments of hayes-yellow fibroadipose tissue that in aggregate measure 1.5 x 0.2 x 0.1 cm. The entire specimen is submitted in one cassette. B - Received in saline is one container labeled with the patient's name and designated left lymph node tissue. The specimen consists of multiple elongated fragments of light hayes adipose tissue that in aggregate measure 1.5 x 0.2 x 0.1 cm. A piece is also saved in RPMI for flow cytometry if needed. Two touch imprints are prepared. The entire specimen is submitted in two cassettes. / WINSTON:glenys 01/03/2023 TC:0 CPT: 93801
--- NOTE | 2023-01-02 | IMM_PTH ---
PATIENT: DAGO KAYE LOC: [facility] U#:[id number] AGE/SX: 77/M ROOM: RE01/02/[address]: Dr. Du Mendez MD : 1945 BED: DIS: 01/02/2023 SPEC #: [id number] RECD: 01/04/23 13:11 STATUS: JOAO REQ #: [id number] SHANICE: 01/02/23 00:[address]: Du Mendez DEPT: IMMUNOHISTOCHEMISTRY RECD BY: Nikia Garcia ENTERED: 01/04/23 13:13 SP TYPE: IMMUNO OTHR DR: Dr. Saurabh Ferrer MD Tissues: A - Left breast, NOS Procedures: CALPONIN-1 (add) CK5-6 (add) CK8 (add) POWELL-2 (add) E-CAD (add) HER2 DARIUS (add) KI-67 (add) P53 (add) OH (add) IN SITU HYBRIDIZATION P40 (add) ER (initial) PHYSICIAN & INSTITUTION [address] [address] SPECIMEN INFORMATION: Tissue Source: A ? Left breast lump tissue Clinical Info: Left breast and lymph node biopsy Specimen Number: [id number] CPT code: 00365, 53191 x7, 21788 x3, 93486 x2 METHODOLOGY: Deparaffinized sections of prefer/formalin-fixed tissue or PAP/DQ stained slides are incubated with monoclonal/polyclonal antibodies/oligonucleotide probes. Localization is made via biotin free immunoperoxidase method. Appropriate controls are performed and reacted as expected. Results on target cell population are indicated in the following table: RESULTS: ANTIBODY / CLONE RESULT Block A P53 (DO-7) negative, dim, wild type pattern Ki-67 (30-9) positive, 25% CK8 (68htobS78) positive CK5-6 (D5 & 1684) negative Calponin-1 (GZ066Y) negative P40 (BC28) negative E-Cad (ECH-6) positive POWELL-2 (SP21) positive, focal, dim MORPHOMETRIC ANALYSIS ER (clone 6F11) >95%, moderate to strong intensity OH (clone 16/1E2) 0% Her-2Neu (clone CB11) 1-2+ The prognostic test for HER2 is performed on formalin-fixed paraffin embedded tissue. A 3+ (positive) staining pattern is defined as intense, homogeneous, complete, circumferential membranous staining in >10% of contiguous tumor cells. A similar weak (2+) staining pattern is interpreted as equivocal. GRACIE follow-up testing is recommended for all equivocal cases. Positivity/negativity for ER/OH is reported if > or < 1% of the tumor cells are immuno- reactive, respectively. The ASCO/CAP criteria is used for scoring. Reference: Journal of Clinical Oncology, 2013; 31:4377-3270 & 2010; 16:1208-0439. Duration of fixation: 29 Hrs; Sample Adequate: Yes. These assays have not been validated on decalcified tissues. Results should be interpreted with caution given the likelihood of false negativity on decalcified specimens. These tests were developed and their performance characteristics determined by [facility]. They may not have been cleared or approved by the U.S. Food and Drug Administration. The FDA has determined that such clearance or approval is not necessary. The above immunohistochemical/dualISH markers are ordered and reviewed by the Pathologist. INTERPRETATION: A. Left breast lump, needle core biopsy: Invasive ductal carcinoma, nuclear grade 2. Positive for estrogen receptors (favorable prognostic indicator). Negative for progesterone receptors (unfavorable prognostic indicator). Equivocal for overexpression of JUI1ixd. AM:glenys 01/05/2023 ADDENDUM ADDENDUM ADDENDUM ADDENDUM ADDENDUM ADDENDUM ADDENDUM ADDENDUM ADDENDUM ADDENDUM ADDENDUM ADDENDUM ADDENDUM ADDENDUM ADDENDUM ADDENDUM ADDENDUM ADDENDUM ADDENDUM ADDENDUM ADDENDUM ADDENDUM 01/12/2023 13:10 ADDENDUM 01/12/2023 13:10 ADDENDUM 01/12/2023 13:10 ADDENDUM 01/12/2023 13:10 ADDENDUM 01/12/2023 13:10 IN SITU HYBRIDIZATION (GRACIE) FOR HER2 Interpretation: Negative / Not Amplified HER2 : CEP-17 Ratio: 1.5 Average HER2 Signal: 3.95 Average CEP-17 Signal: 2.65 Number of Tumor Cells Scanned: 50 Interpretative Information: The INFORM HER2 Dual GRACIE DNA Probe Cocktail assay is performed on formalin-fixed paraffin embedded tissue and determines HER2 gene status by detecting HER2 copies via silver in situ hybridization (SISH) and Chromosome 17 copies via chromogenic red in situ hybridization on tumor cells. A minimum of 20 cells representing > 10% of contiguous and homogeneous invasive tumor cells were analyzed. HER2 gene status is classified as Non-amplified (HER2/Chr17 ratio < 2.0) or Amplified (HER2/Chr17 ratio greater than or equal to 2.0). If the resulting HER2/Chr17 ratio falls within 1.8 - 2.2 (Borderline), retesting by FISH is recommended. Reference: Chelsy AC, Lakshmi YANEZ, Vida COBB, et al: Recommendations for Human Epidermal Growth Factor Receptor 2 Testing in Breast Cancer: [place] [employer] On[employer] / [employer] [place] [employer] Clinical Practice Guideline Update. J Clin Oncol 31:2484-9480, 2013. SJ:glenys 01/12/2023
== END | disposition home or self-care (01) ==
LOC: LABSPEC 15:16
PROVIDERS: PCP Family Medicine; Referring Provider Surgery; Visit Provider Surgery
DX: N63.20 Unspecified lump in the left breast, unspecified quadrant (principal)
CPT/HCPCS: 88305; 88341; 88342; 88368

== ENCOUNTER → 2023-01-19 | Outpatient (CLI) | payer MEDICARE, OTHER, SELFPAY ==
--- NOTE | 2023-01-19 15:19 | CT_ITS ---
EXAM: CT CHEST WITH INTRAVENOUS CONTRAST CLINICAL INDICATION: MALE BREAST CA TECHNIQUE: Helically acquired images were obtained of the chest with intravenous contrast. This CT exam was performed using one or more of the following dose reduction techniques: automated exposure control, adjustment of the mA and/or kV according to patient size, and/or use of iterative reconstruction technique. CONTRAST: IV 100mL Isovue-300 RADIATION DOSE: CTDIvol = 16.49 mGy, DLP = 779.27 mGy-cm COMPARISON: No relevant prior studies available. FINDINGS: LUNGS AND PLEURAL SPACES: Breathing motion artifacts in the lower lobes. No mass. No pleural effusion or thickening. No pneumothorax. HEART: Unremarkable. Heart size is normal. No pericardial effusion. MEDIASTINUM: Unremarkable. No mediastinal or hilar adenopathy. Esophagus is unremarkable. No hiatal hernia. THYROID: Unremarkable. No thyroid lesions. BONES/JOINTS: Unremarkable. No suspicious lytic or blastic abnormality. SOFT TISSUES: Asymmetry in the density of the left breast when compared to the right. This corresponds to the suspicious left breast carcinoma. VASCULATURE: Calcified plaques along the LAD branch and circumflex branch of the left coronary artery. Normal cardiac size but there is hypertrophy and the muscles of the left ventricular chamber. Thoracic aorta is non-dilated. No thoracic aortic dissection. No obvious central pulmonary embolism although this study was not performed with the pulmonary embolism protocol. CT/Chest WITH Contrast IMPRESSION: 1. No CT evidence of metastatic pulmonary nodule or metastatic disease in the chest. 2. Asymmetry of the left breast when compared to the right. This corresponds to the suspected left breast carcinoma. 3. Calcified plaques along the LAD branch and circumflex branch of the left coronary artery and left ventricular hypertrophy. Electronically Signed: Alfred Farrar MD at 17:12 EDT ,
[2023-01-19 15:51] LABS: CREATININE FINGERSTICK 1.8 mg/dL (0.70-1.30)
== END | disposition home or self-care (01) ==
LOC: CT 15:17
PROVIDERS: PCP Family Medicine; Referring Provider Internal Medicine Medical Oncology; Visit Provider Internal Medicine Medical Oncology
DX: C50.022 Malignant neoplasm of nipple and areola, left male breast (principal)
CPT/HCPCS: 71260; Q9967

== ENCOUNTER 2023-02-19 16:53 | Observation (INO) | payer MEDICARE, OTHER, SELFPAY ==
--- NOTE | 2023-02-15 10:06 | EKG12_ITS ---
Test Reason : PREOP Blood Pressure : / mmHG Vent. Rate : 083 BPM Atrial Rate : 083 BPM P-R Int : 172 ms QRS Dur : 098 ms QT Int : 374 ms P-R-T Axes : 078 -26 107 degrees QTc Int : 439 ms Normal sinus rhythm Septal infarct , age undetermined Inferior infarct , age undetermined T wave abnormality, consider lateral ischemia Abnormal ECG Confirmed by VALERIE HUBBARD MD ([id number]), editorial intern NBA BARFIELD ([id number]) on 02/15/2023 2:31:54 PM Referred By: Du Mendez Confirmed By:VALERIE HUBBARD MD
[2023-02-15 11:43] LABS: Hematocrit 51.5 % (40-54); Hemoglobin 17.4 g/dL (13.0-16.5); Mean Corp Hgb Conc 33.8 g/dL (32-36); Mean Corpuscular Hgb 31.2 pg (27.0-32.0); Mean Corpuscular Volume 92.3 fL (80-94); Mean Platelet Vol. 10.4 fl (6.2-12.0); Platelet Count 211 K/mm3 (150-450); RBC Distribution Width CV 14.5 % (11.6-14.6); RBC Distribution Width SD 48.4 fl (35.1-43.9); Red Blood Count 5.58 M/mm3 (4.6-6.2); White Blood Count 10.2 K/mm3 (4.4-11.0)
[2023-02-15 12:26] LABS: Anion Gap 7 (5-15); BUN 31 mg/dL (7-18); BUN/Creat Ratio 17.7 RATIO (10-20); Calcium,Total 9.6 mg/dL (8.5-10.1); Chloride 108 mmol/L (98-107); Creatinine, Serum 1.75 mg/dL (0.70-1.30); EST Glomerular Filtration Rate 41 mL/min (>60); Est Glom Filt Rate - Afr Amer 49 mL/min (>60); Glucose 122 mg/dL (74-106); Potassium 4.3 mmol/L (3.5-5.1); Sodium Level 141 mmol/L (136-145); Thyroid Stim Hormone (TSH) 0.38 uIU/mL (0.358-3.74)
[2023-02-15 13:26] LABS: Hemoglobin A1c 5.6 % (3.8-5.6)
[2023-02-19] VITALS (11 sets, daily range): BP systolic 165–211; BP diastolic 56–85; PULSE 54–75; RESP 12–18; TEMP 36.1–36.7; O2SAT 90–100; BMI 35.9
--- NOTE | 2023-02-19 | IMM_PTH ---
PATIENT: DAGO KAYE LOC: [facility] U#:[id number] AGE/SX: 77/M [place] [facility] [place]: Dr. Du Mendez MD : 1945 BED: 1 DIS: 02/20/2023 SPEC #: [id number] RECD: 02/22/23 13:15 STATUS: JOAO REMaureen #: [id number] SHANICE: 02/19/23 00:[address]: uD Mendez DEPT: IMMUNOHISTOCHEMISTRY RECD BY: Nikia Garcia ENTERED: 02/22/23 13:17 SP TYPE: IMMUNO OTHR DR: Dr. Saurabh Ferrer MD Tissues: A - Axillary lymph node, NOS Procedures: CK7 (add) CK8 (add) Pankeratin (initial) Pankeratin (add) PHYSICIAN & INSTITUTION [place] [phone] SPECIMEN INFORMATION: Tissue Source: A - Axillary content Clinical Info: Left breast cancer Specimen Number: [id number] A1-A8 CPT code: 92915, 23144 x8 METHODOLOGY: Deparaffinized sections of prefer/formalin-fixed tissue or PAP/DQ stained slides are incubated with monoclonal/polyclonal antibodies/oligonucleotide probes. Localization is made via biotin free immunoperoxidase method. Appropriate controls are performed and reacted as expected. Results on target cell population are indicated in the following table: RESULTS: ANTIBODY / CLONE RESULT Block A1 AE1-3 (AE1/AE3/PCK26) negative CK7 (OV-TL12/30) negative Block A2 AE1-3 (AE1/AE3/PCK26) negative CK7 (OV-TL12/30) negative Block A3 AE1-3 (AE1/AE3/PCK26) negative CK7 (OV-TL12/30) negative Block A4 AE1-3 (AE1/AE3/PCK26) negative CK7 (OV-TL12/30) negative Block A5 AE1-3 (AE1/AE3/PCK26) negative CK7 (OV-TL12/30) negative Block A6 AE1-3 (AE1/AE3/PCK26) negative CK7 (OV-TL12/30) negative Block A7 AE1-3 (AE1/AE3/PCK26) negative CK7 (OV-TL12/30) negative Block A8 AE1-3 (AE1/AE3/PCK26) positive CK7 (OV-TL12/30) negative CK8 (66sxtpB30) positive These tests were developed and their performance characteristics determined by [facility]. They may not have been cleared or approved by the U.S. Food and Drug Administration. The FDA has determined that such clearance or approval is not necessary. The above immunohistochemical/dualISH markers are ordered and reviewed by the Pathologist. INTERPRETATION: A. 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 This case has been reviewed in consultation with Dr. Larson who concurs with the above diagnosis. SJ:glenys 02/23/2023
--- NOTE | 2023-02-19 12:30 | NM_ITS ---
PROCEDURE: NUCLEAR MEDICINE Injection Mesa Node - left breast(s). REASON FOR EXAM: Male, 77 years old. Left breast cancer. TECHNIQUE: Mesa node localization using radionuclide methods of the left breast(s) was performed following subcutaneous administration of 1.1 mCi of of sulfur colloid Tc-99m. COMPARISON STUDIES : Comparison is made with prior mammogram dated December 29, 2022. FINDINGS: 1.1 mCi of technetium labeled sulfur colloid was injected subcutaneously in 4 equal aliquots for sentinel node imaging. NM/Lymph Node Injection Only IMPRESSION: 1.1 mCi of technetium labeled sulfur colloid was injected subcutaneously in 4 equal aliquots for sentinel node imaging. Electronically Signed: Alvaro Celis MD at 9:00 EDT ,
[2023-02-19] MEDS: Lactated Ringers 1,000 ML 15 ML IV ×2 (13:04→16:59)
--- NOTE | 2023-02-19 13:16 | HP.PCM_ITS ---
History and Physical Date of Admission: 02/19/23 Intake Vital Signs 01/29/2310:33 Height 6 ft 4 in Weight: 302 lb 4 oz BMI 36.8 BP 144/80 H Blood Pressure Location Lt brachial Position Sitting Respiration 18 Pulse 79 Pulse Source Monitor Temp 98.7 F Pulse Oximetry (%) 98 Oxygen Delivery Method room air Intake Visit Reasons: DISCUSS SURGERY Chief Complaint: F/u for Left breast cancer Allergies chocolate flavor Adverse Reaction (Verified 01/29/23 10:18) Otherpeanuts Allergy (Intermediate, Uncoded 01/29/23 10:18) Itching PFSH Medical History Breast cancer in male Elevated blood pressure reading Impaired fasting blood sugar Seasonal allergies Family History Father CVA (cerebral vascular accident) Myocardial infarctionMother Lung cancer Social History Smoking Status: Former smoker alcohol intake: current substance use type: does not use HPI HPI HPI: Patient is a 77-year-old male with left breast cancer. He is here to discuss surgery. ROS General General: Yes weight change and fatigue; No appetite, colon cancer, breast cancer or weakness HEENT HEENT: Yes eye surgery; No difficulty swallowing, eye injury, swollen glands or hoarseness Endo Endocrine: No thyroid disease, diabetes mellitus, thyroid cancer, Hair loss, heat intolerance or cold intolerance Skin Skin: No rash or changing moles Breast Breast: Yes left breast lump and abnormal US; No right breast lump, nipple discharge, breast pain, abnormal mammogram or breast enlargement Musc Musculoskeletal: Yes back problems, arthritis and gout; No rheumatoid arthritis or joint pain Cardio Cardiovascular: Yes high blood pressure; No murmur, pacemaker, heart disease, atrial fibrillation, heart attack, heart stent, palpitations, shortness of breat with exertion or chest pain Psych Psychiatric: No depression, anxiety or hearing voices Resp Respiratory: No shortness of breath, No sleep apnea, No cough, No COPD, No asthma, No emphysema and No wheezing Gastro Gastrointestinal: No abdominal pain, No nausea or vomiting, No diarrhea, No constipation, No blood in stool, No acid reflux, No hemorrhoids, No ulcers, No gallbladder problem and No black,tarry stools [place] Hematologic: No blood thinners, No blood disorders, No bleeding, No anemia and No blood clots Neuro Neurologic: No system reviewed and no additional complaints, except as documented, No as per HPI, No abnormal gait, No abnormal hearing, No abnormal movements, No abnormal speech, No behavioral changes, No burning sensations, No confusion, No convulsions, No disequilibrium, No dizziness, No localized weakness, No frequent falls, No headache(s), No lack of coordination, No loss of vision, No memory loss, Yes numbness, No other visual disturbances, No radicular pain, No restless legs, No sensory deficit, No syncope, Yes tingling, No tremor(s), No weakness and No other Exam Const General: cooperative Orientation: alert and oriented x3 HENMT Head: normal to inspection Neck Neck: normal visual inspection and full ROM Chest Chest palpation & inspection: normal inspection of the chest Resp Effort & Inspection: normal respiratory effort Auscultation: clear to auscultation bilaterally Cardio Rate: regular rate Rhythm: regular rhythm GI Inspection: non-distended Palpation: soft and nontender Skin General: no rashes or lesions noted Neuro General: patient alert and patient oriented x3 Extrem General: full ROM Psych Appearance: grossly normal Mental Status: mental status grossly normal Assessment and Plan Assessment and Plan (1) Cancer of left male breast : Status: Acute Qualifiers: Breast location: central portion of breast Estrogen receptor status: positive Qualified Code(s): C50.122 - Malignant neoplasm of central portion of left male breast; Z17.0 - Estrogen receptor positive status [ER+] Comment: 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 ER positive greater than 95%, TX negative, HER2 negative by FISH. Biopsy of left axillary node was negative. PET CT scan on 01/23/2023 reviewed, shows L breast hypermetabolic mass 18mm, no lymph nodes or metastatic disease. CT chest 01/19/2023 reviewed, shows no metastatic disease, L breast bigger than R. Clinically has stage I(cT1c cN0 M0) breast cancer. Discussed disease status, surgical management then adjuvant hormonal therapy with/without Radiation therapy. Pt agrees to proceed. Plan: The patient has left breast cancer. Patient was sent to oncology had a PET scan that did not show any other lesions that lit up. I discussed left mastectomy with the patient with sentinel lymph node biopsy. Patient agrees to proceed. I discussed the risks including but not limited to bleeding, infection, need for further surgery, nerve injury, hematoma or seroma formation. Patient understands the risks as well to proceed. Du Mendez MD Pager: [facility] [address] [place] [address], [address] [place] [address] Office: I have examined the patient and the H&P has been reviewed. There are no clinical changes since date of exam.
[2023-02-19 13:18] LABS: Bedside Glucose 97 mg/dL (74-106)
--- NOTE | 2023-02-19 14:00 | BREAST_PTH ---
PATIENT: DAGO KAYE LOC: MS3 U#:[id number] AGE/SX: 77/M ROOM: [facility] RE02/19/[address]: Dr. Du Mendez MD : 1945 BED: 1 DIS: 02/20/2023 SPEC #: [id number] RECD: 02/20/23 08:04 STATUS: JOAO SHERWOOD #: [id number] SHANICE: 02/19/23 14:[address]: Du Mendez DEPT: SURGICAL PATHOLOGY RECD BY: Beata Villarreal ENTERED: 02/20/23 09:00 SP TYPE: BREAST OTHR DR: Dr. Saurabh Ferrer MD Tissues: A - Axilla, NOS B - Left breast, NOS Procedures: Surgery Specimen Level V HEADER OPERATION: Left simple mastectomy with sentinel lymph node biopsy and radiotracer PRE-OP DIAGNOSIS: Cancer of left breast TISSUE SUBMITTED: A - Axillary content, B - Left breast MICROSCOPIC DIAGNOSIS A. Axillary contents, regional dissection: One out of 12 lymph nodes, postive for macrometastatic carcinoma. See comment. B. Left breast, mastectomy: Invasive ductal carcinoma. See cancer summary in the Comment Section: WINSTON:glenys 02/22/2023 COMMENT A. Immunohistochemistry ([id number]) supports the above diagnosis. Metastatic focus measures 2.25 mm in greatest dimension. A minute focus of extranodal extension is noted measuring 1.25 mm in greatest dimension. B. INVASIVE BREAST CANCER SUMMARY: Procedure - mastectomy Specimen Laterality - left Tumor site - retroareolar Tumor size - 2.5 x 2.0 x 2.0 cm Histologic type - invasive ductal carcinoma (not otherwise specified) Histologic Grade ([place] grade): Glandular/tubular differentiation - score 3 Nuclear pleomorphism - score 3 Mitotic count - score 2 Overall grade - 3 (score of 8) Tumor focality - single focus of invasive carcinoma. Ductal carcinoma in situ - present Negative for extensive intraductal component. Size (extent) of DCIS - DCIS comprise <5% of total tumor volume. Number of blocks with DCIS - 3 Number of blocks examined - 12 Architectural pattern - solid Nuclear grade - grade 3 Necrosis - present, central (expansive comedo necrosis) Lobular carcinoma in situ (LCIS) - not identified Tumor extension: Skin - skin is present and invasive carcinoma directly invades into the dermis without skin ulceration. Nipple - DCIS does not involve the nipple epidermis (the tumor is present in nipple dermis). Skeletal muscle - no skeletal muscle present. Margins: Invasive carcinoma and ductal carcinoma in situ are 1.0 cm away from the closest inferior margin. Invasive carcinoma is present in the nipple dermis and overlying skin dermis, and it is <0.1 cm away from the overlying epidermis. Lymph nodes: Number of sentinel lymph nodes examined - 0 Total number of lymph nodes examined (sentinel and nonsentinel) - 12 Number of lymph nodes with macrometastases - 1 Number of lymph nodes with micrometastases and isolated tumor cells - 0 Site of largest metastatic deposits - 2.25 mm Extranodal extension - present Extent of extranodal extension - 1.25 mm Treatment effect - no known presurgical therapy. Lymphvascular invasion - not identified Dermal lymphvascular invasion - not identified Distant metastasis - not applicable Additional pathologic findings - ductal dilatation. - verrucous keratosis and seborrheic keratosis. Ancillary studies - previously performed on section of tumor ([id number] / [id number]). ER - positive (>95%, moderate to strong intensity) MA - negative (0%) Her2 whitley - equivocal (1-2+) Her2 by dual GRACIE - negative / not amplified Microcalcifications - not identified Clinical history - Please make reference to previous specimen ([id number]) left breast tissue, needle core biopsy with diagnosis of invasive ductal carcinoma and left lymph node, biopsy with diagnosis of fragments of benign adipose tissue. PATHOLOGIC STAGE: pT2 pN1a pMx The above summary is in compliance with [employer] [place] [employer] (CAP) Cancer Protocols Checklist and [place] [employer] Committee on Cancer (AJCC), Staging Manual, 8th Ed. This case was reviewed and diagnosis discussed with Dr. Fisher on 03/29/23. Case has been reviewed in consultation with Dr. Larson who concurs with the above diagnosis. IDC:AM MICROSCOPIC DESCRIPTION Slides are reviewed. GROSS DESCRIPTION A - Received in fixative is one container labeled with the patient's name and designated axillary content. The specimen consists of a piece of adipose tissue containing multiple nodules consistent with lymph nodes measuring 8.0 x 6.0 x 3.0 cm. The largest lymph node measures 3.0 cm in greatest dimension. [place]her sections are submitted in eight cassettes as follows: 1 - one bisected lymph node, 2??one serially sectioned lymph node, 3 - one serially sectioned lymph node, 4 - one bisected lymph node, 5??multiple lymph nodes, 6-8 - one serially sectioned lymph node, largest lymph node. B - Received in fixative is one container labeled with the patient's name and designated left breast, short stitch - superior, long stitch - lateral. The specimen consists of a mastectomy specimen consisting of breast tissue with overlying skin ellipse. The breast tissue measures 15.0 x 9.0 x 5.0 cm and overlying skin ellipse measures 11.0 x 4.0 cm. The nipple measures 1.0 cm in greatest dimension. A few raised areas are noted on the skin ellipse. The specimen is inked as follows: posterior - black, superior - blue, inferior - green, medial - red and lateral - orange. Serial sections reveal a hayes, indurated mass measuring 2.5 x 2.0 x 2.0 cm. This mass is present in the subareolar region, and it is 0.5 cm away from the skin and 1.0 cm away from the closest inferior margin. Sectioning of the rest of the specimen reveal hayes-yellow adipose cut surfaces mixed with hayes-white fibrous areas. Salt Washer sections are submitted as follows: 1 - nipple, entire submitted, 2 - small skin lesions, 3 - perpendicular medial, lateral and posterior margins, 4 - perpendicular superior and inferior margins, 5-8 - tumor, 9-12 - senior patient account representative sections adjacent to and away from the tumor. Sections will be submitted after additional fixation. / WINSTON:glenys 02/20/2023 TC:0 CPT: 92387 x2
[2023-02-19] MEDS: Isosulfan Blue 1% 5 ML Vial (14:22)
[2023-02-19] MEDS: 0.9% Normal Saline (Pres. free 10 ML Vial (14:23)
--- NOTE | 2023-02-19 16:20 | OP.PCM_ITS ---
Report of Operation Date of Procedure: 02/19/23 Pre-Operative Diagnosis: Left breast cancer, central breast Post-Operative Diagnosis: Same Surgery/Procedure Performed:: 1. Left axillary dissection 2. Left mastectomy Description of Surgical Findings:: Synoptic Portion: Element Response Options Operation performed with curative intent. Yes Tracer(s) used to identify sentinel nodes in the upfront surgery (non- neoadjuvant) setting (select all that apply). [place] radioactive tracer Tracer(s) used to identify sentinel nodes in the neoadjuvant setting (select all that apply). N/A All nodes (colored or non-colored) present at the end of a dye-filled lymphatic channel were removed. Yes, axillary dissection was performed All significantly radioactive nodes were removed. None were identified All palpably suspicious nodes were removed. Yes Biopsy-proven positive nodes marked with clips prior to chemotherapy were identified and removed. N/A Type of Anesthesia: General/Regional Specimen's removed: 1. Left axillary contents 2. Left breast Drains: ALVARADO to bulb suction x2 Estimated Blood Loss (mL): 50 Description of Procedure: Patient was brought back to the operating room and general anesthesia was induced. 5 cc of Lymphazurin was injected in the subareolar space in the left breast. It was followed by 5 cc of saline. The left breast and axilla were then prepped and draped in usual sterile fashion. An incision was made in the left axilla and deepened to the subcutaneous tissue. There is nothing lighting up with the neoprobe and nothing appeared blue. At this point we elected to perform an axillary dissection. The superior portion of the axilla was dissected and the vessels were identified as well as the thoracodorsal nerve. It was traced laterally to the latissimus. The small nerves to the arm were in the way of dissection and had to be sacrificed. The chest wall was then dissected free. The long thoracic nerve was identified. The contents were reflected inferiorly and removed. After they were removed there did appear to be something that was radioactive in the axillary contents. The axilla was irrigated and suctioned dry and hemostasis was obtained using clips. The nerves were checked once more and were both intact. The axilla was packed. Next an elliptical incision was marked around the nipple including the breast tissue of the left breast. Incision was made and electrocautery was used to raise flaps on superior and inferior side. Next medially the breast was taken off of the pectoralis muscle including the pectoralis fascia from a medial to lateral fashion. It was marked and sent for pathology. Hemostasis was obtained using electrocautery. A drain was placed in the breast area and a drain was placed in the axilla. Both drains were secured using 3-0 nylon suture. Surgicel powder was placed in the axilla as well as on the pectoral muscle. Next the incisions were closed with interrupted 3-0 Vicryl suture and running 4- 0 Monocryl suture. Dermabond was applied to both incisions. Patient was then awoken and taken to PACU in stable condition and will be admitted for observation overnight. Admit VTE Documentation VTE Mechan Device Prophylaxis: SCD's
[2023-02-19] MEDS: Bupivacaine Mpf 0.5% 30 ML VIAL (16:27)
--- NOTE | 2023-02-19 16:57 | DCINST_ITS ---
Discharge Instructions Diet Discharge Diet: Light diet - advance as tolerated Activity Discharge Activity: May Not Drive (for 2-3 days or while taking narcotic pain medications.) and May Shower May shower in (days): 1 Lifting Restrictions: 15 lbs for 2 weeks Dressing / Incision Call your doctor if your incision/area has: Continuous Slow Oozing, Sudden Increased Bleeding, Increased Pain/ Swelling, Increased Redness, Foul Smelling Discharge and Swelling at the incision site Call your doctor if you observe: Fever of 101 or Higher Suture Line Care: Avoid Pulling/Pushing and Avoid Pinching/Bending Cleanse incision/area with: Soap & Water Drain: Suction Follow Up Care Please Follow Up With: Du Mendez MD When: Please call to schedule 2 week follow up appointment. [phone] Test Results: Test results from this visit will be discussed in further detail at your follow- up appointment, if applicable. Discharge Plan Admission Attending Provider: Du Mendez Primary Care Provider: Saurabh Ferrer Discharge Orders/Prescriptions Prescriptions: New oxycodone-acetaminophen 5-325 mg Tablet 1 tab PO Q4H PRN PRN (Reason: Pain Score 6-10) 5 Days Qty: 30 0RF Continued finasteride 5 mg tablet 5 mg PO DAILY meloxicam 15 mg tablet 15 mg PO DAILY amlodipine 10 mg tablet 10 mg PO DAILY levothyroxine 150 mcg capsule 125 mcg PO DAILY allopurinol 300 mg tablet 300 mg PO DAILY metformin 1,000 mg tablet 1,000 mg PO BID furosemide [Lasix] 40 mg tablet 40 mg PO DAILY rosuvastatin 5 mg tablet 5 mg PO DAILY naproxen 250 mg tablet 250 mg PO BID PRN (Reason: pain) fluticasone propionate 50 mcg/actuation spray,suspension 1 spray intranasal DAILY Rx Instructions: administer into each nostril Zyrtec 10 mg capsule 10 mg PO DAILY omeprazole 20 MG capsule 20 mg PO DAILY Other Ambulatory Orders: 12 Lead EKG (Routine) Timeframe: [id number] Location: None Selected Ordered By: Dr. Gabriel Hicks Referrals / Follow Up: Saurabh Ferrer MD [Primary Care Provider] - Disposition Disposition (needs filled in before D/C Order can be placed): Home, Self Care
[2023-02-19 17:15] LABS: Bedside Glucose 137 mg/dL (74-106)
[2023-02-19] MEDS: amLODIPine 10 MG Tablet PO (21:00)
[2023-02-19] MEDS: Furosemide 40 MG Tablet PO (21:00)
[2023-02-19] MEDS: hydrALAZINE 20 MG/ML Vial 10 MG IV (22:23)
[2023-02-20] MEDS: 0.9% Normal Saline 1,000 ML 100 ML IV (01:32)
[2023-02-20] MEDS: Oxycodone/Apap 5/325 Tablet PO (01:33)
[2023-02-20 02:06] VITALS: BP 178/67; PULSE 77; RESP 18; TEMP 36.6; O2SAT 100
[2023-02-20 05:41] VITALS: BP 159/69; PULSE 60
[2023-02-20 06:28] LABS: Absolute Neutrophil Count 15.4 X10^3/uL (2.0-7.7); Basophil# 0.02 X10^3/uL; Basophil% 0.1 % (0-1); Hemoglobin 14.8 g/dL (13.0-16.5); Lymphocyte % 4.7 % (19-41); Mean Corp Hgb Conc 32.9 g/dL (32-36); Mean Corpuscular Hgb 31.4 pg (27.0-32.0); Mean Corpuscular Volume 95.5 fL (80-94); Mean Platelet Vol. 10.6 fl (6.2-12.0); Monocyte# 0.83 X10^3/uL; Monocyte% 4.8 % (0-10); NRBC Flagged by Analyzer 0 % (0-5); Neutrophil # 15.38 X10^3/uL (2.7-7.7); Neutrophil % 89.8 % (47-70); POSITIVE COUNT YES; Platelet Count 140 K/mm3 (150-450); RBC Distribution Width CV 14.5 % (11.6-14.6); RBC Distribution Width SD 50.7 fl (35.1-43.9); Red Blood Count 4.71 M/mm3 (4.6-6.2); White Blood Count 17.1 K/mm3 (4.4-11.0)
[2023-02-20 06:42] LABS: Differential Indicated SCAN CRITERIA MET
[2023-02-20 06:47] LABS: Anion Gap 7 (5-15); BUN 32 mg/dL (7-18); BUN/Creat Ratio 17.8 RATIO (10-20); Calcium,Total 8.6 mg/dL (8.5-10.1); Chloride 107 mmol/L (98-107); EST Glomerular Filtration Rate 39 mL/min (>60); Est Glom Filt Rate - Afr Amer 47 mL/min (>60); Estimated Creatinine Clearance 43.53 ml/min; Glucose 197 mg/dL (74-106); Potassium 4.5 mmol/L (3.5-5.1); Sodium Level 135 mmol/L (136-145)
--- NOTE | 2023-02-20 07:27 | PN.SURG_ITS ---
Subjective Subjective Patient tolerating diet, pain controlled. JPs in place?sanguinous Objective Data Objective Data Vital Signs: Vital Signs Temp Pulse Resp BP Pulse Ox O2 Del Method O2 Flow Rate 97.9 F 60 18 159/69 H 100 Room Air 1 02/20/23 02:06 02/20/23 05:41 02/20/23 02:06 02/20/23 05:41 02/20/23 02:06 02/20/23 02:06 02/19/23 20:07 Oxygen Flow Rate (L/min) 1 Oxygen Delivery Method Room Air Weight: 295 lb 6.711 oz Body Mass Index (BMI) 35.9 Intake & Output: Intake and Output for Last 24 Hours 02/18/23 02/19/23 02/20/23 23:59 23:59 23:59 Intake Total 1115 / 1115 700 / 700 Output Total 40 / 40 320 / 320 Balance 1075 / 1075 380 / 380 Lab / Micro Data 02/20/23 05:55 02/20/23 05:55 Labs: Laboratory Results - last 24 hr 02/19/23 12:53: POC Glucose 97 02/19/23 16:57: POC Glucose 137 H 02/20/23 05:55: WBC 17.1 H, RBC 4.71, Hgb 14.8, Hct 45.0, MCV 95.5 H, MCH 31.4, MCHC 32.9, RDW Std Deviation 50.7 H, RDW Coeff of Socrates 14.5, Plt Count 140 L, MPV 10.6, Immature Gran % (Auto) 0.600, Neut % (Auto) 89.8 H, Lymph % (Auto) 4.7 L, [place] % (Auto) 4.8, Eos % (Auto) 0.0, Baso % (Auto) 0.1, Absolute Neuts (auto) 15.4 H, Absolute Lymphs (auto) 0.80 L, Nucleated RBC % 0, Sodium 135 L, Potassium 4.5, Chloride 107, Carbon Dioxide 21.0, Anion Gap 7, BUN 32 H, Creatinine 1.80 H, Estim Creat Clear Calc 43.53, Est GFR (MDRD) Af Amer 47 L, Est GFR (MDRD) Non-Af 39 L, BUN/Creatinine Ratio 17.8, Glucose 197 H, Calcium 8.6 Physical Exam Narrative Left mastectomy incision clean dry and intact, left axilla incision clean dry and intact, ALVARADO x2 sanguinous?stripped at bedside Const oriented x3 Resp normal respiratory effort Cardio regular rate Assessment & Plan Assessment/Plan (1) S/P left mastectomy: (2) History of lymph node dissection of left axilla: (3) Cancer of left male breast : QUALIFIERS: Breast location: central portion of breast Estrogen receptor status: positive Qualified Code(s): C50.122 - Malignant neoplasm of central portion of left male breast; Z17.0 - Estrogen receptor positive status [ER+] PLAN: Plan Patient is tolerating diet. We will stop IV fluids. ALVARADO teaching White blood count 17 likely due to surgery no signs of infection or fever. DC home--- patient is to make follow-up appointment next week with Dr. Andrea Cordova M.D. Pager: [phone] [facility] [address] [place] [address], [facility], [address] [place] [id number] Office: [phone]
[2023-02-20 07:47] VITALS: BP 147/67; PULSE 61; RESP 16; TEMP 37.2; O2SAT 97
[2023-02-20] MEDS: Furosemide 40 MG Tablet PO (08:14)
[2023-02-20] MEDS: amLODIPine 10 MG Tablet PO (08:15)
--- NOTE | 2023-02-20 09:03 | CASEMGMT ---
JARETH CM into pt room, pt sitting up in chair. Pt states he feels comfortable emptying his ALVARADO drain. Pt asks about his medications. Made aware a pain medication was called in. Pt states he does not have any funds to pay for this. Pt son to pick him up, he states his son does not have funds either. TC to [facility], spoke with Miki, pt cost is $7.80. JARETH VALENTINE back into pt room, pt states he cannot afford this. Pt states he will just take his naproxen. Noted his naproxen on dc instructions stated 250 mg po bid prn pain. Pt states he will do this. He is aware if this does not manage his pain to call 's office. Provided pt with resources on rx coverage. Pt aware d/t type of medication, this could not be covered by the rx assist program. Asked pt if he has funds for food. Pt states on Tuesdays he has 4 meals delivered and on Wednesdays he goes to a food pantry in [place]. He also states his son gets food stamps. Pt denies further homegoing needs.
--- NOTE | 2023-02-20 10:48 | PHA.DC.MC.R ---
Pharmacy [facility] has performed discharge medication reconciliation and counseling for this patient. Patient advised to avoid taking both meloxicam and naproxen together. Told to follow up with PCP. Also instructed to hold Zyrtec if Percocet is needed as there is an interaction with Zyrtec and oxycodone. Explained that Claritin is an option if needed. 1. OXYCODONE/ACETAMINOPHEN 5/325MG QT PO Q4H PRN PAIN 6-10 The patient's discharge medication list was reviewed for discrepancies and discrepancies were resolved. The patient was counseled on the following discharge medications and changes in medications for homegoing were reviewed. The Reason for Use, instructions for use, and potential side effects were reviewed for all new medications. The patient's questions regarding all of their medications were answered. The patient was able to verbally demonstrate an understanding of their discharge medications. Patient counseled by pharmacy data analystSb. Medications at Discharge Home Medications omeprazole 20 mg capsule,delayed release 20 mg PO DAILY 01/09/14 allopurinol 300 mg tablet 300 mg PO DAILY 01/02/23 amlodipine 10 mg tablet 10 mg PO DAILY 01/02/23 finasteride 5 mg tablet 5 mg PO DAILY 01/02/23 furosemide 40 mg tablet (Lasix) 40 mg PO DAILY 01/02/23 levothyroxine 150 mcg capsule 125 mcg PO DAILY 01/02/23 meloxicam 15 mg tablet 15 mg PO DAILY 01/02/23 metformin 1,000 mg tablet 1,000 mg PO BID 01/02/23 rosuvastatin 5 mg tablet 5 mg PO DAILY 01/02/23 cetirizine 10 mg capsule (Zyrtec) 10 mg PO DAILY 01/16/23 fluticasone propionate 50 mcg/actuation nasal spray,suspension 1 spray intranasal DAILY 01/16/23 naproxen 250 mg tablet 250 mg PO BID PRN pain 01/16/23 oxycodone-acetaminophen 5 mg-325 mg tablet 1 tab PO Q4H PRN PRN Pain Score 6-10 5 days #30 tabs 02/19/23
== END 2023-02-20 13:30 | disposition home or self-care (01) ==
LOC: SDC 17:07 → MS3 17:07
PROVIDERS: Anesthesiology; Admitting Provider Surgery; PCP Family Medicine; Referring Provider Surgery; Visit Provider Surgery
PROC: (CPT 19307; principal; 2023-02-19 13:45)
DX: C50.122 Malignant neoplasm of central portion of left male breast (principal); C77.3 Secondary and unspecified malignant neoplasm of axilla and upper limb lymph nodes; E11.9 Type 2 diabetes mellitus without complications; J30.2 Other seasonal allergic rhinitis; I10 Essential (primary) hypertension; K21.9 Gastro-esophageal reflux disease without esophagitis; E05.90 Thyrotoxicosis, unspecified without thyrotoxic crisis or storm; M19.90 Unspecified osteoarthritis, unspecified site; M10.9 Gout, unspecified; Z79.899 Other long term (current) drug therapy; Z79.84 Long term (current) use of oral hypoglycemic drugs; Z17.0 Estrogen receptor positive status [ER+]; Z80.1 Family history of malignant neoplasm of trachea, bronchus and lung; Z87.891 Personal history of nicotine dependence
CPT/HCPCS: 19303; 38525; 36415; 38792; 80048; 82962; 83036; 84443; 85025; 85027; 88305; 88307; 88341; 88342; 93005; 96361; 96374; 99221; A4648; A9541; J7030; J7120; G0378; J2405; J3490; Q9968

== ENCOUNTER 2023-02-21 19:48 | Emergency (ER) | payer MEDICARE, OTHER, SELFPAY ==
[2023-02-21 19:49] VITALS: BP 171/83; PULSE 81; RESP 18; TEMP 36.7; O2SAT 98; BMI 36.7
--- NOTE | 2023-02-21 20:20 | EDS_ITS ---
HPI History of Present Illness Chief Complaint: Wound Check Informant: patient Narrative Narrative: Patient presents secondary to drainage from his surgical wounds. He had a left mastectomy and left axillary dissection performed on the . He was discharged in the hospital yesterday. He has 2 ALVARADO drains. He states ALVARADO drain #1 has not had any discharge or drainage. The second ALVARADO drain he emptied just prior to arrival and had 50 cc of serosanguineous fluid. He has noted fluid in the dressing both around the ALVARADO sites as well as across the left breast that had been sealed with Dermabond. He denies pain or fever. [facility] Medical History Breast cancer in male Cancer Diabetes Edema Elevated blood pressure reading GERD (gastroesophageal reflux disease) History of echocardiogram History of stress test Hyperthyroidism Impaired fasting blood sugar Seasonal allergies Use of cane as ambulatory aid Wears glasses Home Medications omeprazole 20 mg capsule,delayed release 20 mg PO DAILY 01/09/14 [History Last Taken Unknown] allopurinol 300 mg tablet 300 mg PO DAILY 01/02/23 [History Last Taken Unknown] amlodipine 10 mg tablet 10 mg PO DAILY 01/02/23 [History Last Taken Unknown] finasteride 5 mg tablet 5 mg PO DAILY 01/02/23 [History Last Taken Unknown] furosemide 40 mg tablet (Lasix) 40 mg PO DAILY 01/02/23 [History Last Taken Unknown] levothyroxine 150 mcg capsule 125 mcg PO DAILY 01/02/23 [History Last Taken Unknown] meloxicam 15 mg tablet 15 mg PO DAILY 01/02/23 [History Last Taken Unknown] metformin 1,000 mg tablet 1,000 mg PO BID 01/02/23 [History Last Taken Unknown] rosuvastatin 5 mg tablet 5 mg PO DAILY 01/02/23 [History Last Taken Unknown] cetirizine 10 mg capsule (Zyrtec) 10 mg PO DAILY 01/16/23 [History Last Taken Unknown] fluticasone propionate 50 mcg/actuation nasal spray,suspension 1 spray intranasal DAILY 01/16/23 [History Last Taken Unknown] naproxen 250 mg tablet 250 mg PO BID PRN pain 01/16/23 [History Last Taken Unknown] oxycodone-acetaminophen 5 mg-325 mg tablet 1 tab PO Q4H PRN PRN Pain Score 6-10 5 days #30 tabs 02/19/23 [Rx Last Taken Unknown] Allergy/AdvReac Type Severity Reaction Status Date / Time peanut [peanuts] Allergy Intermediate Itching Verified 02/21/23 19:51 chocolate flavor AdvReac Other Verified 02/21/23 19:51 Family History Father CVA (cerebral vascular accident) Myocardial infarction Mother Lung cancer Surgical History History of elbow surgery History of hand surgery History of lymph node dissection of left axilla History of removal of cyst History of tonsillectomy S/P left mastectomy Social History Smoking Status: Former smoker alcohol intake: current substance use type: does not use ROS ROS ED Constitutional Constitutional ED: Denies chills or fever(s) Eyes Eyes: Denies discharge from eye(s) ENT ENT ED: Denies discharge from eye(s), rhinorrhea or sore throat Cardiovascular Cardiovascular: Denies chest pain or palpitations Respiratory/Chest Respiratory/Chest: Denies cough or dyspnea Gastrointestinal Gastrointestinal: Denies abdominal pain, nausea or vomiting Genitourinary Genitourinary ED: Denies dysuria Musculoskeletal Musculoskeletal: Denies back pain or extremity pain Integumentary Reports other Details: Left chest wounds ; Denies Abrasions or rash Neurologic Neurologic: Denies headache(s) or weakness Psychiatric Psychiatric: Denies anxiety or depression Allergic/Immunologic Allergic/Immunologic ED: Denies lip swelling or urticaria EXAM Physical Exam Const Vital Signs: 02/21/23 19:49 Temperature 98.0 F Temperature Source Temporal Pulse Rate 81 Respiratory Rate 18 Blood Pressure 171/83 H Blood Pressure Mean 112 Pulse Ox 98 Oxygen Delivery Method Room Air Positive well nourished and well developed General Appearance ED: well developed HEENT Reports moist mucous membranes Chest Wall Chest Narrative: There is incision across the left breast that has been Cebul Dermabond. In the central portion of this there is a small area of serosanguineous drainage. There is no palpable fluid collection or abscess. There is dried blood and serosanguineous fluid around the ALVARADO drains on the left lateral chest. Again, no palpable fluid collection and no expression of fluid with palpation around the area. Resp normal respiratory effort and clear to auscultation bilaterally Cardio regular rate and regular rhythm GI non-tender Neuro oriented x3 and no sensory deficits noted Motor Exam: strength 5/5 throughout Psych mental status grossly normal MDM MDM MDM Narrative Medical decision making narrative: Patient's dressings were taken down. Skin is cleansed and dressings are reapplied. At this time I do not feel any further imaging or work-up is needed. I spoke with Dr. Cordova. She will see him in the office at 1030 tomorrow morning to reassess the wounds. Discharge Plan Triage Chief Complaint: Wound Check ED Provider: Marion Bullock Dx/Rx/DC Orders Clinical Impression: Visit for wound check Instructions: ED Post Op Wound Check, General Prescriptions: No Action finasteride 5 mg tablet 5 mg PO DAILY meloxicam 15 mg tablet 15 mg PO DAILY amlodipine 10 mg tablet 10 mg PO DAILY levothyroxine 150 mcg capsule 125 mcg PO DAILY allopurinol 300 mg tablet 300 mg PO DAILY metformin 1,000 mg tablet 1,000 mg PO BID furosemide [Lasix] 40 mg tablet 40 mg PO DAILY rosuvastatin 5 mg tablet 5 mg PO DAILY naproxen 250 mg tablet 250 mg PO BID PRN (Reason: pain) fluticasone propionate 50 mcg/actuation spray,suspension 1 spray intranasal DAILY Rx Instructions: administer into each nostril Zyrtec 10 mg capsule 10 mg PO DAILY omeprazole 20 MG capsule 20 mg PO DAILY oxycodone-acetaminophen 5-325 mg Tablet 1 tab PO Q4H PRN PRN (Reason: Pain Score 6-10) 5 Days Qty: 30 0RF Primary Care Provider: Saurabh Ferrer Referrals: Saurabh Ferrer MD [Primary Care Provider] - Shira Cordova MD [Med Staff - Active Staff] - 02/22/23 10:30 am Disposition Disposition: Home, Self Care
== END 2023-02-21 20:41 | disposition home or self-care (01) ==
LOC: ED 20:29
PROVIDERS: Emergency Provider Emergency Medicine; PCP Family Medicine; Visit Provider Emergency Medicine
DX: Z51.89 Encounter for other specified aftercare (principal); E11.9 Type 2 diabetes mellitus without complications; Z87.891 Personal history of nicotine dependence; K21.9 Gastro-esophageal reflux disease without esophagitis
CPT/HCPCS: 99282

== ENCOUNTER 2023-04-11 08:30 | Outpatient (RCR) | payer MEDICARE, OTHER, SELFPAY ==
--- NOTE | 2023-03-27 09:57 | HP.OTEVAL ---
Patient's Visit Information Visit Information Visit Information: DAGO KAYE is a 77 year old M, referred to Occupational Therapy by Dr. Riaz Fisher DO, with a diagnosis of left mastectomy, limited UE ROM. Date of Evaluation: 03/26/23 Occupational Therapist: ANABEL Craig/Royce, CHT Subjective Subjective: Pt had a mastectomy on L side on 03/19/2023. Pt had 12 lymph nodes. Chemo will be start soon (pt unclear on date). Pt is on disability ~15 years. Pt's son living downstairs, though does not interact with him on a daily basis. Pt reports limited ROM/pulling with shoulder flexion. Pt notes limited ambulation ability with Dr recommending to to walk more than 100'. pt states he needs more shoulder ROM to cont. with treatment. ROM Shoulder: right flexion 125; left flexion 120 Lymphedema (Circumferential Measure) MCP: right 23 cm left 22 cm Wrist: right 18.5 cm left 26 cm Lower forearm: right 29.5 left 30.5 cm Largest forearm: right 29.5 left 30.5 cm Elbow: right 29.5 left 30 cm Largest humerus: right 37.5 left 37.5 cm Axcillary: right 48.5 left 48.5 cm Upper Exremity Comments: Feels like a sunburn when palpating upper body Sensation Sensation Comments: describes some hypersensitivity on posterior upper arm Quick DASH-Disab of Arm,Shoulder& Hand Quick DASH Score: 15.9075 Goals Goal: Patient will demonstrate adequate knowledge of self-massage by the end of the second week.: Yes Goal: Patient will demonstrate adequate knowledge of skin care and precautions by the end of the first week.: Yes Goal: Patient will demonstrate adequate knowledge of therapeutic exercises by discharge.: Yes Goal: Patient will select an appropriate compression garment and demonstrate adequate knowledge of correct donning technique, care and wearing schedule by discharge.: Yes Goal: Patient will voice understanding of need to replace compression garment every four to six months by discharge.: Yes Goal: Patient will demonstrate ROM WFL by discharge.: Yes Goal:: pt will demo increase in bilateral shoulder ROM by 30* or greater to increase pts IND ADLs and treatments by d.c Rehabilitation General Assessment: Pt presents for OT eval for lymphedema management s/p left mastectomy. Pt demonstrates slight increase of edema upon evaluation and 5 degree difference of shoulder flexion. Pt will benefit from 2-3 visits to follow through on understanding of self-massage and lymphedema knowledge. At this time therapist does not recommend sleeve though will continue to re-assess on visits. Pt educated in self-massage, UE exercises, and lymph system. Pt verbalizes understanding and agreeable to OT POC. Therapy session was directly supervised and doc. approved by Barbara Hussein OTR/L,CHT. Rehabilitation Potential: Good Anticipated Interventions Anticipated Interventions: A/AAROM/PROM, Strengthening, Joint Protection/Energy Conservation, Education re assistive Equipment, Education re Diagnosis, Manual Lymph Drainage, Education re Life-long lymphedema Management, Education re Skin Care and Precautions, Education re Self Massage Techniques, Caregiver Training and Home Program Visit Plan Frequency: 2-3 visits General Plan: PROM of UE AAROM of UE self-massage demonstration explore garments as needed TEXT: Thank you for the opportunity to evaluate your patient. For Medicare and Medicare HMO plans, please review the plan of care and approve it. It will need to be FAXED BACK to us at [phone] for Medicare purposes. Please let me know if there are questions or concerns regarding this plan of care. Physician Signature: Date:
--- NOTE | 2023-04-11 10:43 | HP.OTDCSUM_ITS ---
Discharge Summary D/C Summary: It has been my pleasure to treat DAGO KAYE under orders from Dr. Riaz Fisher DO, for the diagnosis of left mastectomy, limited UE ROM for a total of 3 visit(s). Please see the following information for a summary of their discharge status. Overall Improvement % Improvement: 60 Objective Objective/Function: Therapist noted tight axillary lymph area Lymphedema measurements MCP 22cm Wrist 18.5cm small forearm 18cm largest forearm 28 cm elbow 29cm humerus 36cm axillary 47 cm L shoulder 125* flexion Goals Patient Goals: Decrease Swelling/Stiffness, Use Hand/Wrist/Arm Normally Again, Increase ROM and Learn how to Manage Lymphedema Goal: Patient will demonstrate adequate knowledge of self-massage by the end of the second week.: Yes Goal: Patient will demonstrate adequate knowledge of skin care and precautions by the end of the first week.: Yes Goal: Patient will demonstrate adequate knowledge of therapeutic exercises by discharge.: Yes Goal: Patient will select an appropriate compression garment and demonstrate adequate knowledge of correct donning technique, care and wearing schedule by discharge.: Yes Goal: Patient will voice understanding of need to replace compression garment every four to six months by discharge.: Yes Goal: Patient will demonstrate ROM WFL by discharge.: Yes Goal:: pt will demo increase in bilateral shoulder ROM by 30* or greater to increase pts IND ADLs and treatments by d.c Plan Plan: One more treatment session to ensure understanding of techniques of self lymph stim massage and exercises. D/C Information Discharge Comments: Pt seen for 3 skilled OT sessions. Therapist ed in life- long lymphedema management, lymph stim massage and exercises. Pt shoulder discomfort and limited ROM may be linked to mechanical and postural positioning. Pt demonstrates understanding of lymph stim massage and exercises. Pt agreeable to discharge at this time. Therapy session directly supervised and doc. approved by Barbara LITTLE/Royce,DEEPA. d/c sentence: If there are questions or concerns regarding this patient's occupational therapy, please fell free to call me at [phone]. Thank you for the referral of this patient. Sincerely, ANABEL Craig/Royce, DIANAT
== END 2023-04-11 11:11 | disposition home or self-care (01) ==
LOC: OT 08:30
PROVIDERS: PCP Family Medicine; Visit Provider Student in an Organized Health Care Education/Training Program
DX: Z90.12 Acquired absence of left breast and nipple; Z85.3 Personal history of malignant neoplasm of breast
CPT/HCPCS: 97166; 97530

== ENCOUNTER → 2023-05-01 | Outpatient (CLI) | payer MEDICARE, OTHER, SELFPAY ==
[2023-05-01 10:56] LABS: Anion Gap 4 (5-15); BUN 32 mg/dL (7-18); BUN/Creat Ratio 17.8 RATIO (10-20); Calcium,Total 9.3 mg/dL (8.5-10.1); Chloride 111 mmol/L (98-107); EST Glomerular Filtration Rate 39 mL/min (>60); Est Glom Filt Rate - Afr Amer 47 mL/min (>60); Free T3 2.7 pg/mL (2.18-3.98); Glucose 118 mg/dL (74-106); Potassium 4.4 mmol/L (3.5-5.1); Sodium Level 141 mmol/L (136-145); T4 Free Direct 1.53 ng/dL (0.76-1.46)
== END | disposition home or self-care (01) ==
LOC: MFPLAB 09:11
PROVIDERS: PCP Family Medicine; Visit Provider Family Medicine
DX: E03.9 Hypothyroidism, unspecified (principal); N19 Unspecified kidney failure
CPT/HCPCS: 36415; 80048; 84439; 84443; 84481

== ENCOUNTER → 2023-05-31 | Outpatient (CLI) | payer MEDICARE, OTHER, SELFPAY ==
[2023-05-31 11:50] LABS: Anion Gap 8 (5-15); BUN 34 mg/dL (7-18); BUN/Creat Ratio 20.9 RATIO (10-20); Calcium,Total 9.5 mg/dL (8.5-10.1); Chloride 106 mmol/L (98-107); Cholesterol 162 mg/dL (200); Creatinine, Serum 1.63 mg/dL (0.70-1.30); EST Glomerular Filtration Rate 44 mL/min (>60); Est Glom Filt Rate - Afr Amer 53 mL/min (>60); Free T3 1.6 pg/mL (2.18-3.98); Glucose 122 mg/dL (74-106); High Density Lipoprotein 34 mg/dL; Sodium Level 138 mmol/L (136-145); T4 Free Direct 1.04 ng/dL (0.76-1.46); Thyroid Stim Hormone (TSH) 0.43 uIU/mL (0.358-3.74); Triglycerides 170 mg/dL; Very Low Density Lipoprotein 34 mg/dL (5-40)
== END | disposition home or self-care (01) ==
LOC: MFPLAB 09:48
PROVIDERS: PCP Family Medicine; Visit Provider Family Medicine
DX: E03.9 Hypothyroidism, unspecified (principal); E11.59 Type 2 diabetes mellitus with other circulatory complications
CPT/HCPCS: 36415; 80048; 80061; 84439; 84443; 84481

== ENCOUNTER → 2023-08-02 | Outpatient (CLI) | payer MEDICARE, OTHER, SELFPAY ==
--- OUTSIDE RECORDS SUMMARY | 2023-08-02 09:09 | XMS RPT_ITS | CCD ---
Author Name Unknown Address [address] [place] [address] Organization [facility] Results Test Name Value Interpretation Reference Range Facil ity Summary Purpose Family History No Family History Records Found Advance Directives No Advanced Directives Records Found Additional Source Comments (unrecognized sect ion and content) No Status Records Found INFORMATION SOURCE (unrecogn ized section and content) FOR RECORDS PERTAINING TO PATIENTS WHO ARE OR HAVE BEEN ENROLLED IN A CHEMICAL DEPENDENCY/SUBSTANCEABUSE PROGRAM, SOME INFORMATION MAY BE OMITTED. This clinical summary was aggregated from multiple sources. Caution should be exercised in using it in the provision of clinical care. This summary normalizes information from multiple sources, and as a consequence, information in this document may materially change the coding, format and clinical context of patient data. In addition, data may be omitted in some cases. CLINICAL DECISIONS SHOULD BE BASED ON THE PRIMARY CLINICAL RECORDS. [employer] provides no warranty or guarantee of the accuracy or completeness of information in this document.
[2023-08-02 10:36] LABS: Hemoglobin A1c 5.1 % (3.8-5.6)
[2023-08-02 10:48] LABS: Anion Gap 6 (5-15); BUN 26 mg/dL (7-18); BUN/Creat Ratio 14.8 RATIO (10-20); Calcium,Total 8.8 mg/dL (8.5-10.1); Chloride 113 mmol/L (98-107); Cholesterol 174 mg/dL (200); Creatinine, Serum 1.76 mg/dL (0.70-1.30); EST Glomerular Filtration Rate 40 mL/min (>60); Est Glom Filt Rate - Afr Amer 49 mL/min (>60); Free T3 2.4 pg/mL (2.18-3.98); Glucose 118 mg/dL (74-106); High Density Lipoprotein 43 mg/dL; Potassium 4.3 mmol/L (3.5-5.1); Sodium Level 145 mmol/L (136-145); Thyroid Stim Hormone (TSH) 1.02 uIU/mL (0.358-3.74); Triglycerides 286 mg/dL; Very Low Density Lipoprotein 57 mg/dL (5-40)
== END | disposition home or self-care (01) ==
LOC: MFPLAB 08:57
PROVIDERS: PCP Family Medicine; Visit Provider Family Medicine
DX: E03.9 Hypothyroidism, unspecified (principal); E11.59 Type 2 diabetes mellitus with other circulatory complications
CPT/HCPCS: 36415; 80048; 80061; 82043; 83036; 84439; 84443; 84481

== ENCOUNTER → 2023-08-29 | Outpatient (CLI) | payer MEDICARE, OTHER, SELFPAY ==
--- OUTSIDE RECORDS SUMMARY | 2023-08-29 09:52 | XMS RPT_ITS | CCD ---
Author Name Unknown Address [address] [place] [address] Organization [facility] Results Test Name Value Interpretation [...] BE BASED ON THE PRIMARY CLINICAL RECORDS. [employer] provides no warranty or guarantee of the accuracy or completeness of information in this document.
[2023-08-29 11:34] LABS: Anion Gap 6 (5-15); BUN 43 mg/dL (7-18); BUN/Creat Ratio 22.1 RATIO (10-20); Calcium,Total 9.8 mg/dL (8.5-10.1); Chloride 109 mmol/L (98-107); Creatinine, Serum 1.95 mg/dL (0.70-1.30); EST Glomerular Filtration Rate 36 mL/min (>60); Est Glom Filt Rate - Afr Amer 43 mL/min (>60); Glucose 120 mg/dL (74-106); Potassium 4.8 mmol/L (3.5-5.1); Sodium Level 138 mmol/L (136-145)
== END | disposition home or self-care (01) ==
LOC: MFPLAB 09:29
PROVIDERS: PCP Family Medicine; Visit Provider Family Medicine
DX: N18.9 Chronic kidney disease, unspecified (principal); E03.9 Hypothyroidism, unspecified
CPT/HCPCS: 36415; 80048

== ENCOUNTER → 2023-10-04 | Outpatient (CLI) | payer MEDICARE, OTHER, SELFPAY ==
--- OUTSIDE RECORDS SUMMARY | 2023-10-04 08:04 | XMS RPT_ITS | CCD ---
Author Name Unknown Address [email or web address] [place] [address] Organization [facility] Results Test Name Value Interpretation [...] BE BASED ON THE PRIMARY CLINICAL RECORDS. [employer] provides no warranty or guarantee of the accuracy or completeness of information in this document.
[2023-10-04 10:34] LABS: Anion Gap 5 (5-15); BUN 24 mg/dL (7-18); BUN/Creat Ratio 14.4 RATIO (10-20); Calcium,Total 9.4 mg/dL (8.5-10.1); Chloride 112 mmol/L (98-107); Creatinine, Serum 1.67 mg/dL (0.70-1.30); EST Glomerular Filtration Rate 43 mL/min (>60); Est Glom Filt Rate - Afr Amer 52 mL/min (>60); Glucose 109 mg/dL (74-106); Potassium 4.4 mmol/L (3.5-5.1); Sodium Level 140 mmol/L (136-145)
== END | disposition home or self-care (01) ==
LOC: MFPLAB 08:02
PROVIDERS: PCP Family Medicine; Visit Provider Family Medicine
DX: N18.9 Chronic kidney disease, unspecified (principal)
CPT/HCPCS: 36415; 80048

== ENCOUNTER → 2023-11-27 | Outpatient (CLI) | payer MEDICARE, OTHER, SELFPAY ==
[2023-11-27 09:24] LABS: Cholesterol 184 mg/dL (200); High Density Lipoprotein 43 mg/dL; Triglycerides 172 mg/dL; Very Low Density Lipoprotein 34 mg/dL (5-40)
== END | disposition home or self-care (01) ==
LOC: PAVLAB 08:46
PROVIDERS: PCP Family Medicine; Referring Provider Family Medicine; Visit Provider Family Medicine
DX: E11.59 Type 2 diabetes mellitus with other circulatory complications (principal); E11.22 Type 2 diabetes mellitus with diabetic chronic kidney disease; N18.9 Chronic kidney disease, unspecified; R03.0 Elevated blood-pressure reading, without diagnosis of hypertension
CPT/HCPCS: 36415; 80061

== ENCOUNTER → 2024-01-10 | Outpatient (CLI) | payer MEDICARE, OTHER, SELFPAY ==
--- NOTE | 2024-01-10 11:50 | RAD_ITS ---
INDICATION: HIP PAIN EXAMINATION/TECHNIQUE: X-RAY - XR Hips Bilateral with Pelvis when performed; 2 Views COMPARISON: No relevant prior comparison study available FINDINGS: PELVIC BONES: No displaced fracture, destructive or sclerotic lesions. Note that overlapping bowel shadows may however obscure fine detail. Sacroiliac joints are unremarkable. No widening of the pubic symphysis. HIPS: The articular structures are unremarkable. No displaced fracture seen in this frontal view. Minimal osteophyte formation arising from the superior lip of the acetabulum. Joint space however maintained. SOFT TISSUES: No soft tissue swelling or gas. RAD/Hips B/L min 2 views w/ Pelvis IMPRESSION: 1. No evidence of displaced pelvic or hip fracture. 2. Mild degenerative changes as detailed. Electronically Signed: Reuben Camp MD at 20:31 EDT ,
== END | disposition home or self-care (01) ==
LOC: MTRAD 11:46
PROVIDERS: PCP Family Medicine; Referring Provider Family Medicine; Visit Provider Family Medicine
DX: M25.552 Pain in left hip (principal)
CPT/HCPCS: 73521

== ENCOUNTER 2024-02-12 08:30 | Outpatient (RCR) | payer MEDICARE, OTHER, SELFPAY ==
--- NOTE | 2024-01-02 11:13 | HP.PTEVAL_ITS ---
Patient's Visit Information Visit Information Visit Information: DAGO KAYE is a 78 year old M referred to Physical Therapy by Dr. Saurabh Ferrer MD with a diagnosis of WEAKNESS /FALL RISK. Date of Evaluation: 01/02/24 Physical Therapist: Carlton Canchola, PT, Cert MDT, OCS Visit Plan Frequency: 2x /Week Duration: 4 Weeks Plan: USED W/C FOR MOBILITY TO DEPT OTHERWISE NO DEVICE OR CANE SHORT DISTANCES WITH GAIT PT INTERVENTIONS GAIT TRAINING/BALANCE TRAINING ,BLE STRENGTHENING ,ENDURANCE PROGRAM AND FUNCTIONAL STRENGTHENING Subjective Subjective: This 78 y/o male presents to physical therapy with weakness. . Patient has developed weakness with decrease gait and balance. Patient has leg weakness in knees and ankle along with back pain. Patient uses w/c community and cart with shopping community distances. Patient uses cane for gait but came today with manual w/c. Patient is driving . Patient has decrease limitations with ADLS and housework task. Patient lives in 1 story home with 4 steps with rails. Patient has walk in shower. Patient has meals on wheels. Patient denies paresthesia/tingling Patient is limited with activity at home. Patient condition affects QOL and function. Patient goals to get stronger and walk. SOCIAL: retired Pain Bilateral Back: Pain Intensity (Out of 10): 6 Pain Intensity Range: 10 Objective Objective: POSTURE: mild forward posture GAIT: reciprocal pattern unsteady mild forward posture slow paula ~30 ft ( used manual w/c today) ( uses cane at home and DR office visits) BALANCE: fair+ FLEXABILITY: hamstrings mod tight MMT:( peak force) quads 14.2 right ,left 15.8 ,hamstrings 17.9 right ,left 16 ,1 ,hip flexion right 19.2 right ,left 18.2 ankle 4/5 Balance/Special Test Scores CATSIB Score (Max score 120 seconds): 25 Lower Extremity Functional Score: 13 30 Second Chair Rise Test Seconds: 0 Goals Goal 1:: Patient to be I with HEP strengthening Goal Time Frame: 4-6 Weeks Goal 2:: Patient to demonstrate 50% improvement with function and gait Goal Time Frame: 4-6 Weeks Goal 3:: Patient to improve peak force quads/hams and hip by 5-10 # to imprve gait Goal Time Frame: 4-6 Weeks Goal 4:: Patient to improve CATSIB score by 5 -10 points to improve gait and risk of falls Goal Time Frame: 4-6 Weeks Goal 5:: Patient to improve LFES score by 5 points to improve gait and function /QOL Goal Time Frame: 4-6 Weeks Rehabilitation Potential Physical Therapy Diagnosis: This patient has generalized weakness legs difficulty with walking ,decrease balance impairs ADLS thus benefit from skilled PT Rehabilitation Potential: Good Anticipated Interventions Patient/Client Instruction: Educate patient on: Condition and Plan of Care For the Purpose of:: To decrease pain, To increase ROM, To improve muscle performance and motor function, To improve ability to perform ADL's, To increase tolerance to activity/condition/position, To improve ability of physical actions for home/community/work/leisure, To improve health of tissue, To decrease soft tissue restriction, To increase flexibility/ROM, To improve endurance, To improve balance and To prevent re-injury Therapeutic Exercise to Include: Strength training, Endurance training, Balance training, Postural training, Gait and locomotor training and Dynamic Lumbar Stabilization Comment: BLE QUADS/HAMS/HIP For the Purpose of:: To decrease pain, To improve muscle performance and motor function, To improve ability to perform ADL's, To increase tolerance to activity/condition/position, To improve performance and independence with ADL's, To improve ability of physical actions for home/community/work/leisure, To improve gait and locomotor functions, To increase flexibility/ROM and To improve balance Text: Thank you for the opportunity to evaluate your patient. For Medicare and Medicare HMO plans, please review the plan of care and approve it. It will need to be FAXED BACK to us at [phone] for Medicare purposes. For Medicare only, by signing this I certify the plan of care. Please let me know if there are questions or concerns regarding this plan of care. Physician Signature: Date:
--- NOTE | 2024-01-31 09:48 | HP.PTREVAL ---
Re-Evaluation Intro: Dr. Saurabh Ferrer MD, It has been my pleasure to treat DAGO KAYE over the last 8 visits for WEAKNESS /FALL RISK. Please see the progress note below for an update on the physical therapy plan of care! Subjective Subjective: Doing okay ,has new order for hip OA Objective Objective/Function: Patient will benefit from skilled PT to improve balance and strength and received new order for Hip OA ,patient has made nice progress with increasing leg strength with goals are appropriate and adjusted. POSTURE: mild forward posture GAIT: reciprocal pattern unsteady mild forward posture slow paula ~30 ft ( used manual w/c today) ( uses cane at home and DR office visits) BALANCE: fair+ cane FLEXABILITY: hamstrings mod tight MMT:( peak force) quads 31.2 right ,left 31.8 ,hamstrings 25.9 right ,left 66 ,1 ,hip flexion right 33.2 right ,left 27.9 ,right hip ab 14.7 ,left 13.9 ankle 4/5 PROM: IR 0 degrees ,hip flexion right 100 degrees left 100 degrees ,hip abd left 30 degrees ,right 40 degrees Balance/Special Test Scores CATSIB Score (Max score 120 seconds): 25 Lower Extremity Functional Score: 13 30 Second Chair Rise Test Seconds: 0 Plan Plan Plan: USED W/C FOR MOBILITY TO DEPT OTHERWISE NO DEVICE OR CANE SHORT DISTANCES WITH GAIT PT INTERVENTIONS GAIT TRAINING/BALANCE TRAINING ,BLE STRENGTHENING ,ENDURANCE PROGRAM AND FUNCTIONAL STRENGTHENING Balance/Gait/Functional tests Balance/Special Test Scores CATSIB Score (Max score 120 seconds): 25 Lower Extremity Functional Score: 22 30 Second Chair Rise Test Seconds: 0 Goals Goals Goal 1:: Patient to be I with HEP strengthening Goal Time Frame: 4-6 Weeks Goal Progress: Progressing Goal 2:: Patient to demonstrate 50% improvement with function and gait( NEW GOAL) Goal Time Frame: 4-6 Weeks Goal 3:: Patient to improve peak force quads/hams and hip by 5-10 # to improve gait( new goal) Goal Time Frame: 4-6 Weeks Goal 4:: Patient to improve CATSIB score by 5 -10 points to improve gait and risk of falls Goal Time Frame: 4-6 Weeks Goal Progress: Progressing Goal 5:: Patient to improve LFES score by 5 points to improve gait and function /QOL Goal Time Frame: 4-6 Weeks Goal Progress: Progressing Anticipated Interventions Anticipated Interventions Patient/Client Instruction: Educate patient on: Condition and Plan of Care For the Purpose of:: To decrease pain, To increase ROM, To improve muscle performance and motor function, To improve ability to perform ADL's, To increase tolerance to activity/condition/position, To improve ability of physical actions for home/community/work/leisure, To improve health of tissue, To decrease soft tissue restriction, To increase flexibility/ROM, To improve endurance, To improve balance and To prevent re-injury Therapeutic Exercise to Include: Strength training, Endurance training, Balance training, Postural training, Gait and locomotor training and Dynamic Lumbar Stabilization Comment: BLE QUADS/HAMS/HIP For the Purpose of:: To decrease pain, To improve muscle performance and motor function, To improve ability to perform ADL's, To increase tolerance to activity/condition/position, To improve performance and independence with ADL's, To improve ability of physical actions for home/community/work/leisure, To improve gait and locomotor functions, To increase flexibility/ROM and To improve balance Re-Evaluation Ending Re-evaluation ending: Please do not hesitate to contact me at [phone] by phone or if you have questions or concerns regarding this new plan of care! Sincerely, Carlton Canchola PT, Cert MDT, OCS
== END 2024-02-12 19:00 | disposition home or self-care (01) ==
LOC: PT 08:30
PROVIDERS: PCP Family Medicine; Referring Provider Family Medicine; Visit Provider Family Medicine
DX: M25.551 Pain in right hip (principal); M25.552 Pain in left hip; R53.1 Weakness; Z91.81 History of falling
CPT/HCPCS: 97110; 97162; 97530

== ENCOUNTER 2024-02-13 14:47 | Inpatient (IN) | payer MEDICARE, OTHER, SELFPAY ==
[2024-02-13] VITALS (16 sets, daily range): BP systolic 130–192; BP diastolic 51–96; PULSE 49–82; RESP 13–25; TEMP 36.3–36.7; O2SAT 97–100; BMI 34.7; BMI 34.2
--- NOTE | 2024-02-13 14:50 | EKG12_ITS ---
Test Reason : CHEST PAIN Blood Pressure : / mmHG Vent. Rate : 067 BPM Atrial Rate : 067 BPM P-R Int : 196 ms QRS Dur : 094 ms QT Int : 412 ms P-R-T Axes : 062 -12 084 degrees QTc Int : 435 ms Normal sinus rhythm Nonspecific T wave changes/Leftward [place] Confirmed by Perm Joseph ([id number]), makeup editor NBA BARFIELD ([id number]) on 02/15/2024 6:16:05 AM Referred By: DR LIZ Confirmed By:Prem Joseph
[2024-02-13] MEDS: Heparin Injection (Vial) 5,000 UNIT/ML VIAL 4000 UNIT IV ×2 (15:06→18:22)
[2024-02-13] MEDS: TICAGRELOR 90 MG TABLET 180 MG PO (15:06)
[2024-02-13] MEDS: Aspirin 81 MG TAB.CHEW 324 MG PO (15:06)
--- NOTE | 2024-02-13 15:07 | ED.VIS.CHEST ---
HPI History of Present Illness Chief Complaint: Chest Pain Informant: patient Narrative Narrative: 78-year-old male history of left breast cancer (status post left mastectomy and radiation therapy now on tamoxifen follows with Dr. Dwaine NGO), diabetes, hypertension presenting to the emergency room with chest pain. Patient states for about 1 hour he has had a left central chest pressure that is made him short of breath diaphoretic and nauseated. He has never had this before. He states he is does not take any blood thinners. Per chart patient has had a cardiac stress test in 2022 that was negative. He has had left axillary lymph node dissection. [facility] Medical History Wears glasses Cancer Hyperthyroidism Diabetes Use of cane as ambulatory aid GERD (gastroesophageal reflux disease) Edema History of echocardiogram History of stress test Seasonal allergies Elevated blood pressure reading Impaired fasting blood sugar Breast cancer in male Home Medications ?Medication ?Instructions ?Recorded ?Last Taken ?Type omeprazole 20 mg capsule,delayed 20 mg PO DAILY 01/09/14 02/13/24 History release allopurinol 300 mg tablet 300 mg PO DAILY 01/02/23 02/13/24 History amlodipine 10 mg tablet 10 mg PO DAILY 01/02/23 02/13/24 History finasteride 5 mg tablet 5 mg PO DAILY 01/02/23 02/13/24 History levothyroxine 150 mcg capsule 125 mcg PO DAILY 01/02/23 02/13/24 History meloxicam 15 mg tablet 15 mg PO DAILY 01/02/23 02/13/24 History metformin 1,000 mg tablet 1,000 mg PO BID 01/02/23 02/13/24 History rosuvastatin 5 mg tablet 5 mg PO DAILY 01/02/23 02/13/24 History cetirizine 10 mg capsule (Zyrtec) 10 mg PO DAILY 01/16/23 02/13/24 History fluticasone propionate 50 1 spray intranasal DAILY PRN 01/16/23 Unknown History mcg/actuation nasal allergy symptoms spray,suspension naproxen 250 mg tablet 250 mg PO BID PRN pain 01/16/23 02/13/24 History tamoxifen 20 mg tablet 20 mg PO DAILY 90 days #90 tabs 06/04/23 02/13/24 Rx Allergy/AdvReac Type Severity Reaction Status Date / Time peanut (peanuts) Allergy Intermediate Itching Verified 02/13/24 14:47 chocolate flavor AdvReac Other Verified 02/13/24 14:47 Family History Father CVA (cerebral vascular accident) Myocardial infarction Mother Lung cancer Surgical History History of lymph node dissection of left axilla S/P left mastectomy History of removal of cyst History of hand surgery History of elbow surgery History of tonsillectomy Social History Smoking Status: Former smoker alcohol intake: current substance use type: does not use ROS ROS ED Constitutional Constitutional ED: Denies chills, fever(s) or weight loss Eyes Eyes: Denies change in vision or diplopia ENT ENT ED: Denies ear pain, rhinorrhea or sore throat Cardiovascular Cardiovascular: Reports chest pain; Denies orthopnea, palpitations or racing heartbeat Respiratory/Chest Respiratory/Chest: Reports dyspnea and dyspnea on exertion; Denies cough or orthopnea Gastrointestinal Gastrointestinal: Reports nausea; Denies abdominal pain, diarrhea or vomiting Genitourinary Genitourinary ED: Denies dysuria, hematuria or urinary frequency Musculoskeletal Musculoskeletal: Denies arthralgias or myalgias Integumentary Reports other Details: Diaphoresis ; Denies abscess or rash Neurologic Neurologic: Denies headache(s) or weakness Psychiatric Psychiatric: Denies anxiety, depression, suicidal ideation or suicidal thoughts Endocrine Endocrinology: Denies polydipsia, polyphagia or polyuria Allergic/Immunologic Allergic/Immunologic ED: Denies mouth swelling, tongue swelling or urticaria EXAM Physical Exam Const Vital Signs: 02/13/24 14:47 02/13/24 15:03 02/13/24 15:05 Temperature 97.6 F L Temperature Source Temporal Pulse Rate 49 L Respiratory Rate 25 H Respiratory Effort Blood Pressure 139/51 H Blood Pressure Mean 80 Pulse Ox 100 Oxygen Delivery Method Room Air Nasal Cannula Nasal Cannula Oxygen Flow Rate (L/min) 2 2 02/13/24 15:05 02/13/24 15:05 02/13/24 15:47 Temperature Temperature Source Pulse Rate 67 Respiratory Rate 20 H 13 Respiratory Effort Normal Blood Pressure 173/80 H 130/65 H Blood Pressure Mean 86 Pulse Ox 97 Oxygen Delivery Method Room Air Oxygen Flow Rate (L/min) 02/13/24 15:58 02/13/24 16:00 Temperature 97.4 F L Temperature Source Pulse Rate 60 Respiratory Rate 14 Respiratory Effort Blood Pressure 130/65 H Blood Pressure Mean 86 Pulse Ox 99 99 Oxygen Delivery Method Nasal Cannula Oxygen Flow Rate (L/min) 2 Positive well nourished, well developed and obese General Appearance ED: well developed Nutritional Appearance: obese HEENT Reports normocephalic, head/scalp atraumatic and moist mucous membranes Eyes PERRL and EOMs intact bilaterally Neck no lymphadenopathy, supple and no JVD Resp normal respiratory effort and clear to auscultation bilaterally Cardio regular rate and no murmurs Rate: bradycardia GI normal to inspection, nondistended, normoactive bowel sounds and non-tender Palpation: soft Back/Spine no CVA tenderness and normal ROM Extremity normal to inspection General Extremety ED: Negative for edema General Extremity: Negative for edema Neuro oriented x3 and CN's II-XII intact bilaterally Sensorium / Orientation: alert Motor Exam: strength 5/5 throughout Psych mental status grossly normal Mood & Affect: Negative for depressed or tearful Skin no rashes or lesions noted and no wounds Skin Narrative: Diaphoretic. Well-healed left mastectomy. Heart Score History: Highly Suspicious Age: >/= 65 years Risk Factors: >/= 3 Risk Factors or History of CAD Score: 6 MDM MDM MDM Narrative Medical decision making narrative: Differential diagnosis includes but not limited to STEMI, NSTEMI, pericarditis/myocarditis, pericardial effusion including malignant, aortic dissection, Manera embolism, GERD, pneumothorax pleural effusion EKG was obtained in triage which demonstrates a sinus bradycardia. There is concerning hyperacute T waves as well as ST elevation in 3 and aVF in the precordial leads. There is also concern for heart block as there is possibly dropped beats after P wave noticed in the rhythm strip. He is EKG changes appear new compared to EKG dated February 2023. After speaking briefly with the patient I called a STEMI team and sent the EKGs to our petal cutter. Patient received heparin Brilinta aspirin morphine Zofran and IV fluids. 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 They needed to be resent to him through conventional messaging. STEMI was downgraded by petal cutter after reviewing the EKG. My independent interpretation the chest x-ray is no acute process. Basic blood work was obtained which showed an initial troponin of 56 with a repeat troponin 826. Glucose 122. BUN of 30 creatinine 1.51. D-dimer ordered by cardiology was elevated 0.64 but ditched age corrected into the normal range. Cardiology requested a CTA of the chest was obtained which does not demonstrate any pulmonary embolism or aortic dissection. There was concern for calcification of the left coronary artery system. Please see radiologist read. White count nonspecifically elevated 12.9 with a hemoglobin of 14.2. There was a repeat EKG performed by the Rigging Up Man team which shows a normal sinus rhythm with no obvious STEMI. 30 EKG obtained here in the emergency department prior to admission demonstrates sinus bradycardia at a rate of 46 bpm. I spoke with on-call cardiology Dr. Joseph as well as the hospitalist. Plan is n.p.o. after midnight. It is recommended that Brilinta be held as well as beta-jyotsna due to his bradycardia. Transdermal nitrates will be used and his blood pressure is significantly improved at this time. It is recommended a heparin drip be added. Beta-blockers at this time will be held due to the bradycardia. History & Record Review Discussion w/independent historian: Patient and Family Additional record(s) reviewed:: Prior outpatient record and Prior labs Lab Data Attestation: I reviewed the patient's lab results. Labs: Laboratory Results - last 24 hr 02/13/24 02/13/24 02/13/24 15:03 15:03 15:03 WBC Cancelled Corrected WBC Cancelled RBC Cancelled Hgb Cancelled Hct Cancelled MCV Cancelled MCH Cancelled MCHC Cancelled RDW Std Deviation Cancelled RDW Coeff of Socrates Cancelled Plt Count Cancelled MPV Cancelled Immature Gran % (Auto) Cancelled Neut % (Auto) Cancelled Lymph % (Auto) Cancelled Yates % (Auto) Cancelled Eos % (Auto) Cancelled Baso % (Auto) Cancelled Absolute Neuts (auto) Cancelled Absolute Lymphs (auto) Cancelled Total Counted Cancelled Neutrophils % (Manual) Cancelled Band Neutrophils % Cancelled Lymphocytes % (Manual) Cancelled Monocytes % (Manual) Cancelled Eosinophils % (Manual) Cancelled Basophils % (Manual) Cancelled Metamyelocytes % Cancelled Myelocytes % Cancelled Promyelocytes % Cancelled Blast Cells % Cancelled Plasma Cell % (Manual) Cancelled Other Cells % Cancelled Nucleated RBC % Cancelled Nucleated RBCs/100 WBC Cancelled Differential Comment Cancelled Diff Path Review Cancelled Hypersegmented Neuts Cancelled Atypical Lymphocytes Cancelled Reactive Lymphocytes Cancelled Smudge Cells Cancelled Toxic Granulation Cancelled Toxic Vacuolation Cancelled Dohle Bodies Cancelled Romy Rods Cancelled Platelet Estimate Cancelled Plt Morphology Comment Cancelled RBC Morphology Cancelled Cancelled Polychromasia Cancelled Hypochromasia Cancelled Basophilic Stippling Cancelled Anisocytosis Cancelled Microcytosis Cancelled Macrocytosis Cancelled Spherocytes Cancelled Sickle Cells Cancelled Target Cells Cancelled Tear Drop Cells Cancelled Ovalocytes Cancelled Stomatocytes Cancelled [place] Bodies Cancelled Fáit[place] Cells Cancelled Bite Cells Cancelled Crenated Cell Cancelled Acanthocytes (Spur) Cancelled Rouleaux Cancelled Schistocytes Cancelled PT Cancelled INR Cancelled APTT Cancelled D-Dimer Quant (PE/DVT) Sodium Cancelled Cancelled Potassium Cancelled Chloride Carbon Dioxide Anion Gap BUN Creatinine Estim Creat Clear Calc Est GFR (MDRD) Af Amer Est GFR (MDRD) Non-Af BUN/Creatinine Ratio Glucose Calcium Troponin I High Sens 02/13/24 02/13/24 02/13/24 15:03 15:03 15:03 WBC Corrected WBC RBC Hgb Hct MCV MCH MCHC RDW Std Deviation RDW Coeff of Socrates Plt Count MPV Immature Gran % (Auto) Neut % (Auto) Lymph % (Auto) Yates % (Auto) Eos % (Auto) Baso % (Auto) Absolute Neuts (auto) Absolute Lymphs (auto) Total Counted Neutrophils % (Manual) Band Neutrophils % Lymphocytes % (Manual) Monocytes % (Manual) Eosinophils % (Manual) Basophils % (Manual) Metamyelocytes % Myelocytes % Promyelocytes % Blast Cells % Plasma Cell % (Manual) Other Cells % Nucleated RBC % Nucleated RBCs/100 WBC Differential Comment Diff Path Review Hypersegmented Neuts Atypical Lymphocytes Reactive Lymphocytes Smudge Cells Toxic Granulation Toxic Vacuolation Dohle Bodies Romy Rods Platelet Estimate Plt Morphology Comment RBC Morphology Polychromasia Hypochromasia Basophilic Stippling Anisocytosis Microcytosis Macrocytosis Spherocytes Sickle Cells Target Cells Tear Drop Cells Ovalocytes Stomatocytes [place] Bodies [place] Cells Bite Cells Crenated Cell Acanthocytes (Spur) Rouleaux Schistocytes PT INR APTT D-Dimer Quant (PE/DVT) Sodium Potassium Cancelled Chloride Cancelled Cancelled Carbon Dioxide Cancelled Cancelled Anion Gap Cancelled BUN Creatinine Estim Creat Clear Calc Est GFR (MDRD) Af Amer Est GFR (MDRD) Non-Af BUN/Creatinine Ratio Glucose Calcium Troponin I High Sens 02/13/24 02/13/24 02/13/24 15:03 15:03 15:03 WBC Corrected WBC RBC Hgb Hct MCV MCH MCHC RDW Std Deviation RDW Coeff of Socrates Plt Count MPV Immature Gran % (Auto) Neut % (Auto) Lymph % (Auto) Yates % (Auto) Eos % (Auto) Baso % (Auto) Absolute Neuts (auto) Absolute Lymphs (auto) Total Counted Neutrophils % (Manual) Band Neutrophils % Lymphocytes % (Manual) Monocytes % (Manual) Eosinophils % (Manual) Basophils % (Manual) Metamyelocytes % Myelocytes % Promyelocytes % Blast Cells % Plasma Cell % (Manual) Other Cells % Nucleated RBC % Nucleated RBCs/100 WBC Differential Comment Diff Path Review Hypersegmented Neuts Atypical Lymphocytes Reactive Lymphocytes Smudge Cells Toxic Granulation Toxic Vacuolation Dohle Bodies Romy Rods Platelet Estimate Plt Morphology Comment RBC Morphology Polychromasia Hypochromasia Basophilic Stippling Anisocytosis Microcytosis Macrocytosis Spherocytes Sickle Cells Target Cells Tear Drop Cells Ovalocytes Stomatocytes [place] Bodies [place] Cells Bite Cells Crenated Cell Acanthocytes (Spur) Rouleaux Schistocytes PT INR APTT D-Dimer Quant (PE/DVT) Sodium Potassium Chloride Carbon Dioxide Anion Gap Cancelled BUN Cancelled Cancelled Creatinine Cancelled Cancelled Estim Creat Clear Calc Cancelled Est GFR (MDRD) Af Amer Est GFR (MDRD) Non-Af BUN/Creatinine Ratio Glucose Calcium Troponin I High Sens 02/13/24 02/13/24 02/13/24 15:03 15:03 15:03 WBC Corrected WBC RBC Hgb Hct MCV MCH MCHC RDW Std Deviation RDW Coeff of Socrates Plt Count MPV Immature Gran % (Auto) Neut % (Auto) Lymph % (Auto) Yates % (Auto) Eos % (Auto) Baso % (Auto) Absolute Neuts (auto) Absolute Lymphs (auto) Total Counted Neutrophils % (Manual) Band Neutrophils % Lymphocytes % (Manual) Monocytes % (Manual) Eosinophils % (Manual) Basophils % (Manual) Metamyelocytes % Myelocytes % Promyelocytes % Blast Cells % Plasma Cell % (Manual) Other Cells % Nucleated RBC % Nucleated RBCs/100 WBC Differential Comment Diff Path Review Hypersegmented Neuts Atypical Lymphocytes Reactive Lymphocytes Smudge Cells Toxic Granulation Toxic Vacuolation Dohle Bodies Romy Rods Platelet Estimate Plt Morphology Comment RBC Morphology Polychromasia Hypochromasia Basophilic Stippling Anisocytosis Microcytosis Macrocytosis Spherocytes Sickle Cells Target Cells Tear Drop Cells Ovalocytes Stomatocytes [place] Bodies [place] Cells Bite Cells Crenated Cell Acanthocytes (Spur) Rouleaux Schistocytes PT INR APTT D-Dimer Quant (PE/DVT) Sodium Potassium Chloride Carbon Dioxide Anion Gap BUN Creatinine Estim Creat Clear Calc Cancelled Est GFR (MDRD) Af Amer Cancelled Cancelled Est GFR (MDRD) Non-Af Cancelled Cancelled BUN/Creatinine Ratio Cancelled Glucose Calcium Troponin I High Sens 02/13/24 02/13/24 02/13/24 15:03 15:03 15:03 WBC Corrected WBC RBC Hgb Hct MCV MCH MCHC RDW Std Deviation RDW Coeff of Socrates Plt Count MPV Immature Gran % (Auto) Neut % (Auto) Lymph % (Auto) Yates % (Auto) Eos % (Auto) Baso % (Auto) Absolute Neuts (auto) Absolute Lymphs (auto) Total Counted Neutrophils % (Manual) Band Neutrophils % Lymphocytes % (Manual) Monocytes % (Manual) Eosinophils % (Manual) Basophils % (Manual) Metamyelocytes % Myelocytes % Promyelocytes % Blast Cells % Plasma Cell % (Manual) Other Cells % Nucleated RBC % Nucleated RBCs/100 WBC Differential Comment Diff Path Review Hypersegmented Neuts Atypical Lymphocytes Reactive Lymphocytes Smudge Cells Toxic Granulation Toxic Vacuolation Dohle Bodies Romy Rods Platelet Estimate Plt Morphology Comment RBC Morphology Polychromasia Hypochromasia Basophilic Stippling Anisocytosis Microcytosis Macrocytosis Spherocytes Sickle Cells Target Cells Tear Drop Cells Ovalocytes Stomatocytes [place] Bodies [place] Cells Bite Cells Crenated Cell Acanthocytes (Spur) Rouleaux Schistocytes PT INR APTT D-Dimer Quant (PE/DVT) Sodium Potassium Chloride Carbon Dioxide Anion Gap BUN Creatinine Estim Creat Clear Calc Est GFR (MDRD) Af Amer Est GFR (MDRD) Non-Af BUN/Creatinine Ratio Cancelled Glucose Cancelled Cancelled Calcium Cancelled Cancelled Troponin I High Sens Cancelled 02/13/24 02/13/24 15:34 16:19 WBC 12.9 H Corrected WBC RBC 4.62 Hgb 14.2 Hct 42.2 MCV 91.3 MCH 30.7 MCHC 33.6 RDW Std Deviation 47.7 H RDW Coeff of Socrates 14.3 Plt Count 168 MPV 9.7 Immature Gran % (Auto) 0.500 Neut % (Auto) 86.5 H Lymph % (Auto) 7.8 L Yates % (Auto) 3.6 Eos % (Auto) 1.3 Baso % (Auto) 0.3 Absolute Neuts (auto) 11.1 H Absolute Lymphs (auto) 1.00 Total Counted Neutrophils % (Manual) Band Neutrophils % Lymphocytes % (Manual) Monocytes % (Manual) Eosinophils % (Manual) Basophils % (Manual) Metamyelocytes % Myelocytes % Promyelocytes % Blast Cells % Plasma Cell % (Manual) Other Cells % Nucleated RBC % 0 Nucleated RBCs/100 WBC Differential Comment Diff Path Review Hypersegmented Neuts Atypical Lymphocytes Reactive Lymphocytes Smudge Cells Toxic Granulation Toxic Vacuolation Dohle Bodies Romy Rods Platelet Estimate Plt Morphology Comment RBC Morphology Polychromasia Hypochromasia Basophilic Stippling Anisocytosis Microcytosis Macrocytosis Spherocytes Sickle Cells Target Cells Tear Drop Cells Ovalocytes Stomatocytes [place] Bodies [place] Cells Bite Cells Crenated Cell Acanthocytes (Spur) Rouleaux Schistocytes PT 14.1 INR 1.1 APTT 86.7 H D-Dimer Quant (PE/DVT) 0.64 H* Sodium 142 Potassium 4.4 Chloride 113 H Carbon Dioxide 22.0 Anion Gap 7 BUN 30 H Creatinine 1.51 H Estim Creat Clear Calc 61.16 Est GFR (MDRD) Af Amer 58 L Est GFR (MDRD) Non-Af 48 L BUN/Creatinine Ratio 19.9 Glucose 122 H Calcium 9.4 Troponin I High Sens 56 Radiography Diagnostic Testing: Clinical Impression(s) from Imaging Studies Chest X-Ray 02/13/24 15:40 IMPRESSION: No acute cardiopulmonary pathology however cannot exclude small left upper lobe nodule. CT recommended for more definitive evaluation. Electronically Signed: Buck Castro MD at 16:21 EDT , Chest CTA 02/13/24 16:23 IMPRESSION: ASHD without evidence for aortic aneurysm periaortic leak or dissection. No evidence for pulmonary embolus. There is however prominent calcification of the left coronary artery Minor subsegmental atelectasis or scarring in both left upper and lower lobes N.B. : The above Results were Read Back by Buck Castro MD to Ronal Vilchis DO, and understanding confirmed on 02/13/2024 17:29:59 (ET). Electronically Signed: Buck Castro MD at 17:37 EDT Reading Location ID and State: [address] [place] [address] Tel [phone], Service support , ADDENDUM: 02/13/24 1744 IMPRESSION: ASHD without evidence for aortic aneurysm periaortic leak or dissection. No evidence for pulmonary embolus. There is however prominent calcification of the left coronary artery Minor subsegmental atelectasis or scarring in both left upper and lower lobes N.B. : The above Results were Read Back by Buck Castro MD to Ronal Vilchis DO, and understanding confirmed on 02/13/2024 17:29:59 (ET). Electronically Signed: Buck Castro MD at 17:37 EDT Reading Location ID and State: [facility] / [place] Tel [phone], Service support , Critical Care Time Critical Care Time: Yes Critical care time (excluding procedures): 30-74 minutes (35 min), Including time spent:, Discussing w/Patient &/or Family/Hardboard Panel Printer, Discussing w/Consultants, Arranging Admission or Transfer and Performing Direct Patient Care at Bedside Discharge Plan Dx/Rx/DC Orders Clinical Impression: ST elevation (STEMI) myocardial infarction, Chest pain, HTN (hypertension), Cancer of left male breast , Diabetes Disposition Disposition: Acute Care [facility]
[2024-02-13] MEDS: Ondansetron 4 MG/2 ML Vial IV (15:08)
[2024-02-13] MEDS: Morphine 4 MG/ML Syringe IV (15:09)
[2024-02-13] MEDS: 0.9% Normal Saline (1000mL) 1,000 ML 999 ML IV (15:11)
--- NOTE | 2024-02-13 15:24 | CHAPLAIN ---
Type of Pastoral Visit ___ Initial Visit ___ Follow-up Visit ___ On-call Visit ___ General Patient Visit ___ Spiritual Assessment ___ Family Conference ___ Bereavement _x__ Rapid Response ___ Code Blue ___ Other (describe below) Pastoral Care Referral From ___ Patient ___ Family ___ Nurse ___ Physician ___ Gear Keeper ___ Donations Attendant _x__ Other (describe below) Sacrament/Intervention ___ Active listening ___ Anointing ___ Yarsanism ___ Bereavement ___ Communion ___ Brit exploration ___ ___ Life review ___ Prayer ___ Reconciliation ___ Sacrament of Sick _x__ Supportive presence ___ Wedding ___ Other (describe below) Pastoral Comments responded to stemi alert and found son of the patient in the hallway as medical team is evaluating and then prepping patient for the Manufacturing Laborer; offered support to the son; son had not been told about what was happening so consulted with bathhouse attendant to help explain; escorted son to the Manufacturing Laborer waiting room and gave instructions on what was available to him as restrooms, phone, and beverages and how to receive further support; at this time the son stated that he preferred to make phone calls and then to be alone; offer of later support if so desired
--- NOTE | 2024-02-13 15:40 | RAD_ITS ---
STUDY: X-RAY CHEST REASON FOR EXAM: Male, 78 years old. chest pain TECHNIQUE: AP portable COMPARISON: None. FINDINGS: Lungs are mildly hyperinflated but clear. Poorly defined spiculated opacity projecting over the left upper lobe suspicious for pulmonary nodule measuring approximately 1.[address] recommended for more definitive evaluation.. There is no demonstrated pleural abnormality. Normal size heart. Normal mediastinum and ben. Normal visualized pulmonary arteries. Normal visualized aortic arch and descending thoracic aorta. Normal visualized thoracic spine. Normal visualized ribs, clavicles, and shoulders. There are surgical clips in left axilla. There is no demonstrated abnormality of the visualized soft tissue structures of the upper abdomen. RAD/Chest 1 View (Portable) IMPRESSION: No acute cardiopulmonary pathology however cannot exclude small left upper lobe nodule. CT recommended for more definitive evaluation. Electronically Signed: Buck Castro MD at 16:21 EDT ,
[2024-02-13 15:51] LABS: Absolute Neutrophil Count 11.1 X10^3/uL (2.0-7.7); Basophil# 0.04 X10^3/uL; Basophil% 0.3 % (0-1); Eosinophil# 0.17 X10^3/uL; Eosinophils% 1.3 % (0-5); Hematocrit 42.2 % (40-54); Hemoglobin 14.2 g/dL (13.0-16.5); Lymphocyte % 7.8 % (19-41); Mean Corp Hgb Conc 33.6 g/dL (32-36); Mean Corpuscular Hgb 30.7 pg (27.0-32.0); Mean Corpuscular Volume 91.3 fL (80-94); Mean Platelet Vol. 9.7 fl (6.2-12.0); Monocyte# 0.46 X10^3/uL; Monocyte% 3.6 % (0-10); NRBC Flagged by Analyzer 0 % (0-5); Neutrophil # 11.13 X10^3/uL (2.7-7.7); Neutrophil % 86.5 % (47-70); Platelet Count 168 K/mm3 (150-450); RBC Distribution Width CV 14.3 % (11.6-14.6); RBC Distribution Width SD 47.7 fl (35.1-43.9); Red Blood Count 4.62 M/mm3 (4.6-6.2); White Blood Count 12.9 K/mm3 (4.4-11.0)
[2024-02-13 15:59] LABS: International Normalized Ratio 1.1; Prothrombin Time (Protime)PT. 14.1 SECONDS (11.7-14.9)
[2024-02-13 16:00] LABS: Partial Thromboplast Time 86.7 Seconds (24.1-36.2)
--- NOTE | 2024-02-13 16:05 | PCM.CONS.C ---
Assessment & Plan Assessment/Plan (1) Chest pain: PLAN: No STEMI noted on ECG. Recommend workup for chest pain including checking troponin. Aspirin. Nitrates. I will also recommend checking CT of the patient's chest. (2) HTN (hypertension): PLAN: Markedly hypertensive. Recommend Nitropaste. Resume patient's amlodipine. (3) Breast cancer in male: PLAN: Follows with oncology. (4) Diabetes: PLAN: As per internal medicine. HPI Consult Data Date of Consult: 02/13/24 HPI Narrative Reason for Consultation: Chest pain chest HPI Narrative: This gentleman has past medical history significant for breast cancer in remission, diabetes mellitus and hypertension. He presented to the emergency room with complaints of 1 hour duration of anterior chest discomfort. He described it as food stuck in his chest. Per him, he was diaphoretic with it and nauseous. Denies any radiation of the discomfort to the arm neck or jaw. Presently he reports feeling completely asymptomatic with complete resolution of his symptoms. First ECG in the emergency room was thought to be suspicious for STEMI. Upon review, no definitive ST elevation. Possible hyperacute T waves with Wenckebach type I second-degree AV block. Second ECG failed to show any ST segment elevation. [facility] Medical History (Updated 02/13/24 @ 16:[address] Daiana Case MD) Wears glasses Cancer Hyperthyroidism Diabetes Use of cane as ambulatory aid GERD (gastroesophageal reflux disease) Edema History of echocardiogram History of stress test Seasonal allergies Elevated blood pressure reading Impaired fasting blood sugar Breast cancer in male Home Medications ?Medication ?Instructions ?Recorded ?Last Taken ?Type omeprazole 20 mg capsule,delayed 20 mg PO DAILY 01/09/14 02/13/24 History release allopurinol 300 mg tablet 300 mg PO DAILY 01/02/23 02/13/24 History amlodipine 10 mg tablet 10 mg PO DAILY 01/02/23 02/13/24 History finasteride 5 mg tablet 5 mg PO DAILY 01/02/23 02/13/24 History levothyroxine 150 mcg capsule 125 mcg PO DAILY 01/02/23 02/13/24 History meloxicam 15 mg tablet 15 mg PO DAILY 01/02/23 02/13/24 History metformin 1,000 mg tablet 1,000 mg PO BID 01/02/23 02/13/24 History rosuvastatin 5 mg tablet 5 mg PO DAILY 01/02/23 02/13/24 History cetirizine 10 mg capsule (Zyrtec) 10 mg PO DAILY 01/16/23 02/13/24 History fluticasone propionate 50 1 spray intranasal DAILY PRN 01/16/23 Unknown History mcg/actuation nasal allergy symptoms spray,suspension naproxen 250 mg tablet 250 mg PO BID PRN pain 01/16/23 02/13/24 History tamoxifen 20 mg tablet 20 mg PO DAILY 90 days #90 tabs 06/04/23 02/13/24 Rx Allergy/AdvReac Type Severity Reaction Status Date / Time peanut (peanuts) Allergy Intermediate Itching Verified 02/13/24 14:47 chocolate flavor AdvReac Other Verified 02/13/24 14:47 Family History Father CVA (cerebral vascular accident) Myocardial infarction Mother Lung cancer Surgical History History of lymph node dissection of left axilla S/P left mastectomy History of removal of cyst History of hand surgery History of elbow surgery History of tonsillectomy Social History Smoking Status: Former smoker alcohol intake: current substance use type: does not use Physical Exam Narrative Comfortable. No apparent distress. Unlabored breathing. Heart rate regular rate and rhythm. Alert oriented x 3. Trace bilateral ankle edema. Risk Stratification Risk Stratification Applicable: No Objective Data Vital Signs: Vital Signs Temp Pulse Resp BP Pulse Ox O2 Del Method O2 Flow Rate 97.4 F L 60 14 130/65 H 99 Nasal Cannula 2 02/13/24 15:58 02/13/24 15:58 02/13/24 15:58 02/13/24 15:58 02/13/24 16:00 02/13/24 16:00 02/13/24 16:00 Oxygen Flow Rate (L/min) 2 Oxygen Delivery Method Nasal Cannula Weight: 285 lb 9.6 oz Body Mass Index (BMI) 34.7 Lab / Micro Data 02/13/24 15:34 02/13/24 15:34 Labs: Laboratory Results - last 24 hr 02/13/24 15:03: WBC Cancelled, Corrected WBC Cancelled, RBC Cancelled, Hgb Cancelled, Hct Cancelled, MCV Cancelled, MCH Cancelled, MCHC Cancelled, RDW Std Deviation Cancelled, RDW Coeff of Socrates Cancelled, Plt Count Cancelled, MPV Cancelled, Immature Gran % (Auto) Cancelled, Neut % (Auto) Cancelled, Lymph % (Auto) Cancelled, Galax % (Auto) Cancelled, Eos % (Auto) Cancelled, Baso % (Auto) Cancelled, Absolute Neuts (auto) Cancelled, Absolute Lymphs (auto) Cancelled, Total Counted Cancelled, Neutrophils % (Manual) Cancelled, Band Neutrophils % Cancelled, Lymphocytes % (Manual) Cancelled, Monocytes % (Manual) Cancelled, Eosinophils % (Manual) Cancelled, Basophils % (Manual) Cancelled, Metamyelocytes % Cancelled, Myelocytes % Cancelled, Promyelocytes % Cancelled, Blast Cells % Cancelled, Plasma Cell % (Manual) Cancelled, Other Cells % Cancelled, Nucleated RBC % Cancelled, Nucleated RBCs/100 WBC Cancelled, Differential Comment Cancelled, Diff Path Review Cancelled, Hypersegmented Neuts Cancelled, Atypical Lymphocytes Cancelled, Reactive Lymphocytes Cancelled, Smudge Cells Cancelled, Toxic Granulation Cancelled, Toxic Vacuolation Cancelled, Dohle Bodies Cancelled, Romy Rods Cancelled, Platelet Estimate Cancelled, Plt Morphology Comment Cancelled, RBC Morphology Cancelled 02/13/24 15:03: RBC Morphology Cancelled, Polychromasia Cancelled, Hypochromasia Cancelled, Basophilic Stippling Cancelled, Anisocytosis Cancelled, Microcytosis Cancelled, Macrocytosis Cancelled, Spherocytes Cancelled, Sickle Cells Cancelled, Target Cells Cancelled, Tear Drop Cells Cancelled, Ovalocytes Cancelled, Stomatocytes Cancelled, Rodríguez-Sh[place] Bodies Cancelled, Fátima Cells Cancelled, Bite Cells Cancelled, Crenated Cell Cancelled, Acanthocytes (Spur) Cancelled, Rouleaux Cancelled, Schistocytes Cancelled, PT Cancelled, INR Cancelled, APTT Cancelled, Sodium Cancelled 02/13/24 15:03: Sodium Cancelled, Potassium Cancelled 02/13/24 15:03: Potassium Cancelled, Chloride Cancelled 02/13/24 15:03: Chloride Cancelled, Carbon Dioxide Cancelled 02/13/24 15:03: Carbon Dioxide Cancelled, Anion Gap Cancelled 02/13/24 15:03: Anion Gap Cancelled, BUN Cancelled 02/13/24 15:03: BUN Cancelled, Creatinine Cancelled 02/13/24 15:03: Creatinine Cancelled, Estim Creat Clear Calc Cancelled 02/13/24 15:03: Estim Creat Clear Calc Cancelled, Est GFR (MDRD) Af Amer Cancelled 02/13/24 15:03: Est GFR (MDRD) Af Amer Cancelled, Est GFR (MDRD) Non-Af Cancelled 02/13/24 15:03: Est GFR (MDRD) Non-Af Cancelled, BUN/Creatinine Ratio Cancelled 02/13/24 15:03: BUN/Creatinine Ratio Cancelled, Glucose Cancelled 02/13/24 15:03: Glucose Cancelled, Calcium Cancelled 02/13/24 15:03: Calcium Cancelled, Troponin I High Sens Cancelled 02/13/24 15:34: WBC 12.9 H, RBC 4.62, Hgb 14.2, Hct 42.2, MCV 91.3, MCH 30.7, MCHC 33.6, RDW Std Deviation 47.7 H, RDW Coeff of Socrates 14.3, Plt Count 168, MPV 9.7, Immature Gran % (Auto) 0.500, Neut % (Auto) 86.5 H, Lymph % (Auto) 7.8 L, Galax % (Auto) 3.6, Eos % (Auto) 1.3, Baso % (Auto) 0.3, Absolute Neuts (auto) 11.1 H, Absolute Lymphs (auto) 1.00, Nucleated RBC % 0, PT 14.1, INR 1.1, APTT 86.7 H Cardiology Labs/Tests 02/13/24 15:03: WBC Cancelled, Corrected WBC Cancelled, RBC Cancelled, Hgb Cancelled, Hct Cancelled, MCV Cancelled, MCH Cancelled, MCHC Cancelled, Plt Count Cancelled, MPV Cancelled, Immature Gran % (Auto) Cancelled, Neut % (Auto) Cancelled, Lymph % (Auto) Cancelled, [place] % (Auto) Cancelled, Eos % (Auto) Cancelled, Baso % (Auto) Cancelled, Absolute Neuts (auto) Cancelled, Total Counted Cancelled, Neutrophils % (Manual) Cancelled, Band Neutrophils % Cancelled, Lymphocytes % (Manual) Cancelled, Monocytes % (Manual) Cancelled, Eosinophils % (Manual) Cancelled, Basophils % (Manual) Cancelled, Metamyelocytes % Cancelled, Myelocytes % Cancelled, Promyelocytes % Cancelled, Blast Cells % Cancelled, Plasma Cell % (Manual) Cancelled, Other Cells % Cancelled, Nucleated RBC % Cancelled, PT Cancelled, INR Cancelled, APTT Cancelled, Sodium Cancelled 02/13/24 15:03: Sodium Cancelled, Potassium Cancelled 02/13/24 15:03: Potassium Cancelled, Chloride Cancelled 02/13/24 15:03: Chloride Cancelled, Carbon Dioxide Cancelled 02/13/24 15:03: Carbon Dioxide Cancelled, Anion Gap Cancelled 02/13/24 15:03: Anion Gap Cancelled, BUN Cancelled 02/13/24 15:03: BUN Cancelled, Creatinine Cancelled 02/13/24 15:03: Creatinine Cancelled, Est GFR (MDRD) Af Amer Cancelled 02/13/24 15:03: Est GFR (MDRD) Af Amer Cancelled, Est GFR (MDRD) Non-Af Cancelled 02/13/24 15:03: Est GFR (MDRD) Non-Af Cancelled, BUN/Creatinine Ratio Cancelled 02/13/24 15:03: BUN/Creatinine Ratio Cancelled, Glucose Cancelled 02/13/24 15:03: Glucose Cancelled, Calcium Cancelled 02/13/24 15:03: Calcium Cancelled 02/13/24 15:34: WBC 12.9 H, RBC 4.62, Hgb 14.2, Hct 42.2, MCV 91.3, MCH 30.7, MCHC 33.6, Plt Count 168, MPV 9.7, Immature Gran % (Auto) 0.500, Neut % (Auto) 86.5 H, Lymph % (Auto) 7.8 L, [place] % (Auto) 3.6, Eos % (Auto) 1.3, Baso % (Auto) 0.3, Absolute Neuts (auto) 11.1 H, Nucleated RBC % 0, PT 14.1, INR 1.1, APTT 86.7 H Rhythm: EKG: ECHO: Stress Test: Cardiac Cath: PCI: CT Surgery: Holter monitor: EPS: PPM: CXR: Chest CT Scan:
--- NOTE | 2024-02-13 16:12 | ECHOCS_ITS ---
Reason For Study: CHEST PAIN Procedure This was a 2D Doppler, Color Flow transthoracic echocardiogram. The study was technically difficult. Exam performed portable in patient room. Left Ventricle Moderate concentric left ventricular hypertrophy. Hyperdynamic left ventricle. Estimated LVEF 75%. Right Ventricle Normal right ventricle. Atria The left atrium is mildly enlarged. Normal right atrium. Mitral Valve Moderate mitral annular calcification. Trivial mitral valve insufficiency. Tricuspid Valve Trivial tricuspid valve insufficiency. Right ventricular systolic pressure estimated to be 39 mmHg. Aortic Valve Trisinus/trileaflet aortic valve. Trivial aortic valve insufficiency. Pulmonic Valve The pulmonic valve is not well visualized. Great Vessels Normal sized aortic root. Pericardium/Pleural Epicardial fat. Medication Diluted definity 1ml given slow IV push to enhance endocardial definition. MMode/2D Measurements & Calculations LVIDd: 4.5 cm IVSd: 1.5 cm Ao root diam: 3.2 cm LVIDs: 2.9 cm LVPWd: 1.7 cm RVDd: 3.7 cm FS: 35.6 % LAV(MOD-bp): 54.5 ml LVAd ap4: 41.1 cm2 SV(MOD-sp4): 119.3 ml LAV(MOD-bp) Indexed: 21.2 ml/m2 LVLd ap4: 9.0 cm LAV(MOD-sp2): 55.1 ml EDV(MOD-sp4): 156.5 ml LAV(MOD-sp4): 47.0 ml EDV(sp4-el): 159.4 ml LVAs ap4: 17.5 cm2 LVLs ap4: 6.9 cm ESV(MOD-sp4): 37.2 ml ESV(sp4-el): 37.6 ml EF(MOD-sp4): 76.2 % EF(sp4-el): 76.4 % SV(sp4-el): 121.8 ml LA A4 area: 18.7 cm2 LA dimension(2D): 3.2 cm RA A4 area: 16.8 cm2 TAPSE: 2.3 cm Time Measurements MV dec time: 0.31 sec Doppler Measurements & Calculations MV E max adalid: 98.8 cm/sec Lat Peak E' Adalid: 8.0 cm/sec Med Peak E' Adalid: 7.3 cm/sec MV A max adalid: 128.6 cm/sec E/E' lat: 12.4 E/E' med: 13.5 MV E/A: 0.77 MV V2 max: 138.7 cm/sec Ao V2 max: 177.8 cm/sec LV V1 max: 146.0 cm/sec MV max P.7 mmHg Ao max P.6 mmHg LV V1 max P.5 mmHg MV V2 mean: 83.2 cm/sec MV mean P.1 mmHg MV V2 VTI: 45.6 cm PA V2 max: 95.4 cm/sec TR max adalid: 247.6 cm/sec TR max P.5 mmHg ECHO/Echo Complete W/ Contrast Interpretation Summary Moderate concentric left ventricular hypertrophy. Hyperdynamic left ventricle. Estimated LVEF 75%. The left atrium is mildly enlarged. Moderate mitral annular calcification. Right ventricular systolic pressure estimated to be 39 mmHg. Ordering Physician: Daiana Case Referring Physician: WILLIE PIERCE Performed By: Swetha Shirley RDCS
--- NOTE | 2024-02-13 16:19 | HP.PCM.HOS_ITS ---
HPI - General General Date of Admission: 02/13/24 Date of Service: 02/13/24 Chief Complaint: Something caught in the chest after he finished potato chips HPI Narrative DAGO KAYE, is a 78 M came to ED with sudden onset of chest pain/tightness after 5 minutes of eating potato chips. He describes that he felt like something caught in the middle of chest without radiation to arm neck or back or scapular region. Patient denies shortness of breath or palpitation but was nauseous and sweating. The chest pressure was there for half an hour before he came to ED and slowly feeling better. Twelve-lead EKG looked like [address] elevation in V3 V4, lead III and aVF with sinus bradycardia, LVH with repolarization abnormality therefore STEMI alert was called and patient was taken [facility]. Previous EKG from February 15, [address] elevation was new but had teener worsening lateral leads, a 1 and aVL suggestive of repolarization abnormality There is also concern of missed heartbeat. There he was seen by bus person dishwasher and will return back to ED after STEMI was ruled out. He recommended CT angiogram chest but patient has CKD with elevated creatinine. Patient vitals shows bradycardia, blood pressure 139/51 but later on blood pressure increased to 173/80. [facility] Medical History Wears glasses Cancer Hyperthyroidism Diabetes Use of cane as ambulatory aid GERD (gastroesophageal reflux disease) Edema History of echocardiogram History of stress test Seasonal allergies Elevated blood pressure reading Impaired fasting blood sugar Breast cancer in male Home Medications ?Medication ?Instructions ?Recorded ?Last Taken ?Type omeprazole 20 mg capsule,delayed 20 mg PO DAILY 01/09/14 02/13/24 History release allopurinol 300 mg tablet 300 mg PO DAILY 01/02/23 02/13/24 History amlodipine 10 mg tablet 10 mg PO DAILY 01/02/23 02/13/24 History finasteride 5 mg tablet 5 mg PO DAILY 01/02/23 02/13/24 History levothyroxine 150 mcg capsule 125 mcg PO DAILY 01/02/23 02/13/24 History meloxicam 15 mg tablet 15 mg PO DAILY 01/02/23 02/13/24 History metformin 1,000 mg tablet 1,000 mg PO BID 01/02/23 02/13/24 History rosuvastatin 5 mg tablet 5 mg PO DAILY 01/02/23 02/13/24 History cetirizine 10 mg capsule (Zyrtec) 10 mg PO DAILY 01/16/23 02/13/24 History fluticasone propionate 50 1 spray intranasal DAILY PRN 01/16/23 Unknown History mcg/actuation nasal allergy symptoms spray,suspension naproxen 250 mg tablet 250 mg PO BID PRN pain 01/16/23 02/13/24 History tamoxifen 20 mg tablet 20 mg PO DAILY 90 days #90 tabs 06/04/23 02/13/24 Rx Allergy/AdvReac Type Severity Reaction Status Date / Time peanut (peanuts) Allergy Intermediate Itching Verified 02/13/24 14:47 chocolate flavor AdvReac Other Verified 02/13/24 14:47 Family History Father CVA (cerebral vascular accident) Myocardial infarction Mother Lung cancer Surgical History History of lymph node dissection of left axilla S/P left mastectomy History of removal of cyst History of hand surgery History of elbow surgery History of tonsillectomy Social History Smoking Status: Former smoker alcohol intake: current substance use type: does not use ROS ROS Narrative Constitutional: Reports fatigue and weakness. No fever. HEENT: Reports systems reviewed and no addt'l complaints, except as documented Respiratory/Chest: No acute shortness of breath or respiratory distress or wheezing. CVS: As described in HPI Gastrointestinal: Denies previous history of dysphagia or swallowing issues. Denies coffee ground emesis, hematemesis or vomiting Genitourinary: Denies burning urination or new urinary tract symptoms Musculoskeletal: Chronic arthritis denies acute joint pain or limited range of motion. No acute injury Neurologic: Denies seizure-like symptoms. skin: No ulcer. No rash Endocrinology: Reports systems reviewed and no addt'l complaints, except as documented Hematologic/Lymphatic: Reports systems reviewed and no addt'l complaints, except as documented Rest 14 ROS are negative except as mentioned in HPI Vital Signs Vital Signs Vital Signs: 02/13/24 14:47 02/13/24 15:03 02/13/24 15:05 Temperature 97.6 F L Temperature Source Temporal Pulse Rate 49 L Respiratory Rate 25 H Respiratory Effort Blood Pressure 139/51 H Blood Pressure Mean 80 Pulse Ox 100 Oxygen Delivery Method Room Air Nasal Cannula Nasal Cannula Oxygen Flow Rate (L/min) 2 2 02/13/24 15:05 02/13/24 15:05 02/13/24 15:47 Temperature Temperature Source Pulse Rate 67 Respiratory Rate 20 H 13 Respiratory Effort Normal Blood Pressure 173/80 H 130/65 H Blood Pressure Mean 86 Pulse Ox 97 Oxygen Delivery Method Room Air Oxygen Flow Rate (L/min) 02/13/24 15:58 02/13/24 16:00 Temperature 97.4 F L Temperature Source Pulse Rate 60 Respiratory Rate 14 Respiratory Effort Blood Pressure 130/65 H Blood Pressure Mean 86 Pulse Ox 99 99 Oxygen Delivery Method Nasal Cannula Oxygen Flow Rate (L/min) 2 Weight Weight: 285 lb 9.6 oz Body Mass Index (BMI) 34.7 Physical Exam Narrative General: Alert, Oriented x3, Cooperative HEENT: Atraumatic, PERRLA, EOMI, Normocephalic Oral: Oral mucosa dry. No Gingival or Mucosal Lesions/ Ulcerations Neck: Supple, No JVD, Negative Carotid Bruits Chest wall/Lungs: Air entry diminished in bilateral lung bases. No crepitation/rhonchi Cardiovascular: Regular rate, Regular Rhythm, Normal S1, Normal S2, No M/G/R Abdomen: Bowel Sounds Present, Soft, Non Tender, Non-Distended : No dysuria. No renal angle tenderness. No suprapubic tenderness. Extremities: Mild pitting edema, Capillary Refill Less than 3 Seconds Skin: No rashes, No breakdown Musculoskeletal: No Tenderness to Palpation of Joints or Extremities Neurological: Cranial nerves II-XII grossly intact, DTR 2+/4. No acute focal neurological deficit. Psych/Mental Status: Normal Affect, Appropriate. Results Lab / Micro Data 02/13/24 15:34 02/13/24 15:34 Labs: Laboratory Results - last 24 hr 02/13/24 15:03: WBC Cancelled, Corrected WBC Cancelled, RBC Cancelled, Hgb Cancelled, Hct Cancelled, MCV Cancelled, MCH Cancelled, MCHC Cancelled, RDW Std Deviation Cancelled, RDW Coeff of Socrates Cancelled, Plt Count Cancelled, MPV Cancelled, Immature Gran % (Auto) Cancelled, Neut % (Auto) Cancelled, Lymph % (Auto) Cancelled, [place] % (Auto) Cancelled, Eos % (Auto) Cancelled, Baso % (Auto) Cancelled, Absolute Neuts (auto) Cancelled, Absolute Lymphs (auto) Cancelled, Total Counted Cancelled, Neutrophils % (Manual) Cancelled, Band Neutrophils % Cancelled, Lymphocytes % (Manual) Cancelled, Monocytes % (Manual) Cancelled, Eosinophils % (Manual) Cancelled, Basophils % (Manual) Cancelled, Metamyelocytes % Cancelled, Myelocytes % Cancelled, Promyelocytes % Cancelled, Blast Cells % Cancelled, Plasma Cell % (Manual) Cancelled, Other Cells % Cancelled, Nucleated RBC % Cancelled, Nucleated RBCs/100 WBC Cancelled, Differential Comment Cancelled, Diff Path Review Cancelled, Hypersegmented Neuts Cancelled, Atypical Lymphocytes Cancelled, Reactive Lymphocytes Cancelled, Smudge Cells Cancelled, Toxic Granulation Cancelled, Toxic Vacuolation Cancelled, Dohle Bodies Cancelled, Romy Rods Cancelled, Platelet Estimate Cancelled, Plt Morphology Comment Cancelled, RBC Morphology Cancelled 02/13/24 15:03: RBC Morphology Cancelled, Polychromasia Cancelled, Hypochromasia Cancelled, Basophilic Stippling Cancelled, Anisocytosis Cancelled, Microcytosis Cancelled, Macrocytosis Cancelled, Spherocytes Cancelled, Sickle Cells Cancelled, Target Cells Cancelled, Tear Drop Cells Cancelled, Ovalocytes Cancelled, Stomatocytes Cancelled, [place] Bodies Cancelled, [place] Cells Cancelled, Bite Cells Cancelled, Crenated Cell Cancelled, Acanthocytes (Spur) Cancelled, Rouleaux Cancelled, Schistocytes Cancelled, PT Cancelled, INR Cancelled, APTT Cancelled, Sodium Cancelled 02/13/24 15:03: Sodium Cancelled, Potassium Cancelled 02/13/24 15:03: Potassium Cancelled, Chloride Cancelled 02/13/24 15:03: Chloride Cancelled, Carbon Dioxide Cancelled 02/13/24 15:03: Carbon Dioxide Cancelled, Anion Gap Cancelled 02/13/24 15:03: Anion Gap Cancelled, BUN Cancelled 02/13/24 15:03: BUN Cancelled, Creatinine Cancelled 02/13/24 15:03: Creatinine Cancelled, Estim Creat Clear Calc Cancelled 02/13/24 15:03: Estim Creat Clear Calc Cancelled, Est GFR (MDRD) Af Amer Cancelled 02/13/24 15:03: Est GFR (MDRD) Af Amer Cancelled, Est GFR (MDRD) Non-Af Cancelled 02/13/24 15:03: Est GFR (MDRD) Non-Af Cancelled, BUN/Creatinine Ratio Cancelled 02/13/24 15:03: BUN/Creatinine Ratio Cancelled, Glucose Cancelled 02/13/24 15:03: Glucose Cancelled, Calcium Cancelled 02/13/24 15:03: Calcium Cancelled, Troponin I High Sens Cancelled 02/13/24 15:34: WBC 12.9 H, RBC 4.62, Hgb 14.2, Hct 42.2, MCV 91.3, MCH 30.7, MCHC 33.6, RDW Std Deviation 47.7 H, RDW Coeff of Socrates 14.3, Plt Count 168, MPV 9.7, Immature Gran % (Auto) 0.500, Neut % (Auto) 86.5 H, Lymph % (Auto) 7.8 L, [place] % (Auto) 3.6, Eos % (Auto) 1.3, Baso % (Auto) 0.3, Absolute Neuts (auto) 11.1 H, Absolute Lymphs (auto) 1.00, Nucleated RBC % 0, PT 14.1, INR 1.1, APTT 86.7 H Assessment & Plan Assessment/Plan (1) NSTEMI, initial episode of care: PLAN: Plan This is a 78 old gentleman came to ED with sudden onset of chest pressure felt like something stuck in the chest after 5 minutes of eating potato chips. 1. Chest pressure probably due to non-STEMI: Twelve-lead EKG shows features of LVH with repolarization abnormality slight ST elevation in V3 V4 but does not meet criteria for STEMI. First troponin is normal. Cycle troponins. Patient seen by bus person dishwasher. First troponin normal but second troponin First troponin normal. Second troponin 826. Patient was seen by bus person dishwasher Dr. Case but will be seen by Dr. Joseph from tomorrow. ED physician discussed with Dr. Joseph and started on IV heparin drip, aspirin and high intensity statin. No indication for Brilinta. Beta-jyotsna not indicated due to bradycardia. Other differential is possible air or fluid esophageal spasm. CT angiogram was negative for aortic aneurysm or dissection or periaortic leak. No evidence for pulmonary embolism. Plan for cardiac cath tomorrow AM. Phosphorus 2.4. Magnesium normal. Phosphorus low normal but Neutra-Phos ordered as potassium is 4.4 and patient has creatinine 1.5. 2. Sinus bradycardia with sinus arrhythmia: Heart rate was in low 40s in triage [place] from strong vagal response. Currently heart rate is 60 to 67/min. Missed P waves in EKG. Repeat EKG. 3. Hypertension, uncontrolled: Twelve-lead EKG shows LVH with repolarization abnormality changes. Monitor BP and titrate antihypertensive medication accordingly. 4. 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 Biopsy of left exertive lymph node was negative. Patient follows Dr. Zepeda. On adjuvant tamoxifen. Had adjuvant radiotherapy by Dr. Fisher 5. Diabetes mellitus type 2: Glucose in BMP is 122. Accu-Cheks insulin coverage with meals sliding scale 6. CKD stage IIIA: Patient creatinine 1.5. Previous creatinine level was elevated at 1.68-1.95 from August to November 2023. DVT prophylaxis: High risk CT angiogram is ordered. Living will/advanced directive/end of life care: Patient does patient does not have power of trial attorney for health. Have living will or advanced directive. After discussion of benefits/risks procedures involved with full code, DNR CC arrest and DNR CC, the patient opted for full code. Patient does want artificial life support including intubation, tube feed, ventilator and/chest compression, central venous catheter, vasopressor and DC shock if needed Total time spent in [id number] encounter in discussion of advanced directive 17 minutes. Laboratory Results Laboratory Results 02/13/24 15:34: WBC 12.9 H, RBC 4.62, Hgb 14.2, Hct 42.2, MCV 91.3, MCH 30.7, MCHC 33.6, RDW Std Deviation 47.7 H, RDW Coeff of Socrates 14.3, Plt Count 168, MPV 9.7, Immature Gran % (Auto) 0.500, Neut % (Auto) 86.5 H, Lymph % (Auto) 7.8 L, [place] % (Auto) 3.6, Eos % (Auto) 1.3, Baso % (Auto) 0.3, Absolute Neuts (auto) 11.1 H, Absolute Lymphs (auto) 1.00, Nucleated RBC % 0, PT 14.1, INR 1.1, APTT 86.7 H, Sodium 142, Potassium 4.4, Chloride 113 H, Carbon Dioxide 22.0, Anion Gap 7, BUN 30 H, Creatinine 1.51 H, Estim Creat Clear Calc 61.16, Est GFR (MDRD) Af Amer 58 L, Est GFR (MDRD) Non-Af 48 L, BUN/Creatinine Ratio 19.9, Glucose 122 H, Calcium 9.4, Troponin I High Sens 56 02/13/24 16:19: D-Dimer Quant (PE/DVT) 0.64 H* 02/13/24 17:10: Phosphorus 2.4 L, Magnesium 1.9, Troponin I High Sens 826 H* Clinical Impression(s) from Imaging Studies Chest X-Ray 02/13/24 15:40 IMPRESSION: No acute cardiopulmonary pathology however cannot exclude small left upper lobe nodule. CT recommended for more definitive evaluation. Chest CTA 02/13/24 16:23 IMPRESSION: ASHD without evidence for aortic aneurysm periaortic leak or dissection. No evidence for pulmonary embolus. There is however prominent calcification of the left coronary artery Minor subsegmental atelectasis or scarring in both left upper and lower lobes Clinical Impression(s) from Imaging Studies Chest X-Ray 02/13/24 15:40 IMPRESSION: No acute cardiopulmonary pathology however cannot exclude small left upper lobe nodule. CT recommended for more definitive evaluation. Echo October 2021 Interpretation Summary The estimated ejection fraction is 65 %. No significant valvular abnormalities Charges/Coding Visit Charges Inpatient E&M: 96399 Init Hosp L3 Procedures Hospitalists Procedures: [id number] Advncd Care Plan 30 Min
[2024-02-13 16:20] LABS: Anion Gap 7 (5-15); BUN 30 mg/dL (7-18); BUN/Creat Ratio 19.9 RATIO (10-20); Calcium,Total 9.4 mg/dL (8.5-10.1); Chloride 113 mmol/L (98-107); Creatinine, Serum 1.51 mg/dL (0.70-1.30); EST Glomerular Filtration Rate 48 mL/min (>60); Est Glom Filt Rate - Afr Amer 58 mL/min (>60); Estimated Creatinine Clearance 61.16 ml/min; Glucose 122 mg/dL (74-106); Potassium 4.4 mmol/L (3.5-5.1); Sodium Level 142 mmol/L (136-145); Troponin-I HS (w/2H Reflex) 56 pg/mL (3.0-78.0)
--- NOTE | 2024-02-13 16:23 | CT_ITS ---
STUDY: CTA CHEST REASON FOR EXAM: Male, 78 years old. chest pain RADIATION DOSAGE (If Supplied By Facility): CTDIvol = ( 12.58 ) mGy, DLP = ( 561.04 ) mGycm TECHNIQUE: The examination was performed with the intravenous administration of IV 100mL Isovue-370. Post-processing of the angiographic images was performed, with multiplanar reformation and 3D reconstruction. Individualized dose optimization techniques were used for this CT. COMPARISON: None. FINDINGS: Normal enhancement of the main pulmonary artery and right and left pulmonary arteries. Normal enhancement of the bilateral peripheral pulmonary arteries. There is no demonstrated pulmonary embolism. Minor atherosclerotic changes of the aorta without evidence for aneurysm. There is no demonstrated aortic dissection. Heart size is normal. There is prominent calcification of the left coronary artery.. Normal mediastinum. Normal hilar regions. Normal visualized trachea and bronchi. The lungs are well expanded. Minor subsegmental atelectasis or scarring in both left upper and lower lobes Tiny calcified granuloma in right upper lobe Normal pleura. There is a large fluid-filled density in the subcutaneous fat of the left breast consistent with postsurgical seroma. There is soft tissue thickening in the left axilla with associated surgical clips indeterminate significance Dorsal spine demonstrates degenerative changes. Normal visualized upper abdomen. CT/CTA Chest W/WO Contrast IMPRESSION: ASHD without evidence for aortic aneurysm periaortic leak or dissection. No evidence for pulmonary embolus. There is however prominent calcification of the left coronary artery Minor subsegmental atelectasis or scarring in both left upper and lower lobes N.B. : The above Results were Read Back by Buck Castro MD to Ronal Vilchis DO, and understanding confirmed on 02/13/2024 17:29:59 (ET). Electronically Signed: Buck Castro MD at 17:37 EDT ,
[2024-02-13 16:37] LABS: D-Dimer Quantitative (DVT/PE) 0.64 FEU/ug/m (0.27-0.49)
[2024-02-13 17:47] LABS: Reflex Troponin-HS? (from REC) Y
[2024-02-13 17:52] LABS: Magnesium 1.9 mg/dL (1.6-2.6); Phosphorus 2.4 mg/dL (2.5-4.9); Troponin-I HS 826 pg/mL (3.0-78.0)
--- NOTE | 2024-02-13 18:05 | EKG12_ITS ---
Test Reason : POST PCI Blood Pressure : / mmHG Vent. Rate : 049 BPM Atrial Rate : 049 BPM P-R Int : 186 ms QRS Dur : 096 ms QT Int : 446 ms P-R-T Axes : 053 -16 098 degrees QTc Int : 402 ms Sinus bradycardia Anteroseptal infarct , age undetermined T wave abnormality, consider lateral ischemia Abnormal ECG When compared with ECG of 13-FEB-2024 18:37, MANUAL COMPARISON REQUIRED, DATA IS UNCONFIRMED Confirmed by Prem Joseph ([id number]), fashion editor [employer] BARFIELD ([id number]) on 02/15/2024 6:18:35 AM Referred By: Confirmed By:Prem Joseph
[2024-02-13] MEDS: HEPARIN/D5w 25,000 UNITS 25,000 UNITS/250 ML IV.SOLN. 10 UNITS CONT INF (18:22)
[2024-02-13] MEDS: Nitroglycerin Oint 1 INCH PACKET TD (18:22)
--- NOTE | 2024-02-13 18:57 | EKG12_ITS ---
Test Reason : CP Blood Pressure : / mmHG Vent. Rate : 039 BPM Atrial Rate : 046 BPM P-R Int : 200 ms QRS Dur : 110 ms QT Int : 492 ms P-R-T Axes : 054 -17 096 degrees QTc Int : 396 ms Critical Test Result: Low HR Sinus bradycardia with sinus arrhythmia Left ventricular hypertrophy with repolarization abnormality ( R in aVL ) ST elevation, consider early repolarization, pericarditis, or injury Abnormal ECG Confirmed by TASHA VANESSA, GHAZALA ([id number]), make up editor [employer] BARFIELD ([id number]) on 02/20/2024 10:28:21 A M Referred By: Confirmed By:CLARENCE CORDOVA MD
[2024-02-13] MEDS: hydrALAZINE 20 MG/ML Vial 10 MG IV ×2 (20:07→22:51)
[2024-02-13] MEDS: 0.9% Saline Lock 10 ML Syringe IV ×2 (20:08→22:52)
[2024-02-13] MEDS: 0.9% Normal Saline (1000mL) 1,000 ML 75 ML IV (20:23)
[2024-02-13] MEDS: Atorvastatin Calcium 40 MG Tablet PO (21:44)
[2024-02-13] MEDS: Insulin Lispro 100 UNIT/ML INSULN.PEN SC (21:44)
[2024-02-13 23:06] LABS: Bedside Glucose 176 mg/dL (74-106)
[2024-02-13 23:12] LABS: Troponin-I HS 4186 pg/mL (3.0-78.0)
[2024-02-14] VITALS (12 sets, daily range): BP systolic 137–181; BP diastolic 72–98; PULSE 47–60; RESP 16–18; TEMP 36.2–36.7; O2SAT 94–99
[2024-02-14 00:50] LABS: Partial Thromboplast Time 39.9 Seconds (24.1-36.2)
[2024-02-14] MEDS: Heparin Injection (Vial) 5,000 UNIT/ML VIAL IV (01:32)
[2024-02-14] MEDS: amLODIPine 10 MG Tablet PO (06:37)
[2024-02-14] MEDS: Levothyroxine 125 MCG Tablet PO (06:37)
[2024-02-14] MEDS: Aspirin E.C. 81 MG Tablet PO (06:37)
[2024-02-14 06:59] LABS: Bedside Glucose 110 mg/dL (74-106)
--- NOTE | 2024-02-14 07:49 | PCM.PN.CARD ---
Subjective Subjective The patient is resting comfortably in the bed this morning at 30 degrees. He denies any recurrence of his chest symptoms. His troponins have increased to 4000 on the third set. His EKG #2 return to his baseline chronic ST changes. Objective Data Vital Signs: Vital Signs Temp Pulse Resp BP Pulse Ox O2 Del Method O2 Flow Rate 98.1 F 57 L 16 168/95 H 96 Room Air 2 02/14/24 06:31 02/14/24 06:31 02/14/24 06:31 02/14/24 06:31 02/14/24 06:31 02/14/24 06:31 02/13/24 18:32 Oxygen Flow Rate (L/min) 2 Oxygen Delivery Method Room Air Weight: 281 lb 8.485 oz Body Mass Index (BMI) 34.2 Intake & Output: Intake and Output for Last 24 Hours 02/12/24 02/13/24 02/14/24 23:59 23:59 23:59 Intake Total 1000 / 1000 72 / 72 Output Total 500 / 500 300 / 300 Balance 500 / 500 -228 / -228 Lab / Micro Data Attestation: I reviewed the patient's lab results. 02/13/24 15:34 02/13/24 15:34 Labs: Laboratory Results - last 24 hr 02/13/24 15:03: WBC Cancelled, Corrected WBC Cancelled, RBC Cancelled, Hgb Cancelled, Hct Cancelled, MCV Cancelled, MCH Cancelled, MCHC Cancelled, RDW Std Deviation Cancelled, RDW Coeff of Socrates Cancelled, Plt Count Cancelled, MPV Cancelled, Immature Gran % (Auto) Cancelled, Neut % (Auto) Cancelled, Lymph % (Auto) Cancelled, Chambers % (Auto) Cancelled, Eos % (Auto) Cancelled, Baso % (Auto) Cancelled, Absolute Neuts (auto) Cancelled, Absolute Lymphs (auto) Cancelled, Total Counted Cancelled, Neutrophils % (Manual) Cancelled, Band Neutrophils % Cancelled, Lymphocytes % (Manual) Cancelled, Monocytes % (Manual) Cancelled, Eosinophils % (Manual) Cancelled, Basophils % (Manual) Cancelled, Metamyelocytes % Cancelled, Myelocytes % Cancelled, Promyelocytes % Cancelled, Blast Cells % Cancelled, Plasma Cell % (Manual) Cancelled, Other Cells % Cancelled, Nucleated RBC % Cancelled, Nucleated RBCs/100 WBC Cancelled, Differential Comment Cancelled, Diff Path Review Cancelled, Hypersegmented Neuts Cancelled, Atypical Lymphocytes Cancelled, Reactive Lymphocytes Cancelled, Smudge Cells Cancelled, Toxic Granulation Cancelled, Toxic Vacuolation Cancelled, Dohle Bodies Cancelled, Romy Rods Cancelled, Platelet Estimate Cancelled, Plt Morphology Comment Cancelled, RBC Morphology Cancelled 02/13/24 15:03: RBC Morphology Cancelled, Polychromasia Cancelled, Hypochromasia Cancelled, Basophilic Stippling Cancelled, Anisocytosis Cancelled, Microcytosis Cancelled, Macrocytosis Cancelled, Spherocytes Cancelled, Sickle Cells Cancelled, Target Cells Cancelled, Tear Drop Cells Cancelled, Ovalocytes Cancelled, Stomatocytes Cancelled, [place] Bodies Cancelled, [place] Cells Cancelled, Bite Cells Cancelled, Crenated Cell Cancelled, Acanthocytes (Spur) Cancelled, Rouleaux Cancelled, Schistocytes Cancelled, PT Cancelled, INR Cancelled, APTT Cancelled, Sodium Cancelled 02/13/24 15:03: Sodium Cancelled, Potassium Cancelled 02/13/24 15:03: Potassium Cancelled, Chloride Cancelled 02/13/24 15:03: Chloride Cancelled, Carbon Dioxide Cancelled 02/13/24 15:03: Carbon Dioxide Cancelled, Anion Gap Cancelled 02/13/24 15:03: Anion Gap Cancelled, BUN Cancelled 02/13/24 15:03: BUN Cancelled, Creatinine Cancelled 02/13/24 15:03: Creatinine Cancelled, Estim Creat Clear Calc Cancelled 02/13/24 15:03: Estim Creat Clear Calc Cancelled, Est GFR (MDRD) Af Amer Cancelled 02/13/24 15:03: Est GFR (MDRD) Af Amer Cancelled, Est GFR (MDRD) Non-Af Cancelled 02/13/24 15:03: Est GFR (MDRD) Non-Af Cancelled, BUN/Creatinine Ratio Cancelled 02/13/24 15:03: BUN/Creatinine Ratio Cancelled, Glucose Cancelled 02/13/24 15:03: Glucose Cancelled, Calcium Cancelled 02/13/24 15:03: Calcium Cancelled, Troponin I High Sens Cancelled 02/13/24 15:34: WBC 12.9 H, RBC 4.62, Hgb 14.2, Hct 42.2, MCV 91.3, MCH 30.7, MCHC 33.6, RDW Std Deviation 47.7 H, RDW Coeff of Socrates 14.3, Plt Count 168, MPV 9.7, Immature Gran % (Auto) 0.500, Neut % (Auto) 86.5 H, Lymph % (Auto) 7.8 L, Chambers % (Auto) 3.6, Eos % (Auto) 1.3, Baso % (Auto) 0.3, Absolute Neuts (auto) 11.1 H, Absolute Lymphs (auto) 1.00, Nucleated RBC % 0, PT 14.1, INR 1.1, APTT 86.7 H, Sodium 142, Potassium 4.4, Chloride 113 H, Carbon Dioxide 22.0, Anion Gap 7, BUN 30 H, Creatinine 1.51 H, Estim Creat Clear Calc 61.16, Est GFR (MDRD) Af Amer 58 L, Est GFR (MDRD) Non-Af 48 L, BUN/Creatinine Ratio 19.9, Glucose 122 H, Calcium 9.4, Troponin I High Sens 56 02/13/24 16:19: D-Dimer Quant (PE/DVT) 0.64 H* 02/13/24 17:10: Phosphorus 2.4 L, Magnesium 1.9, Troponin I High Sens 826 H* 02/13/24 21:32: Troponin I High Sens 4186 H* 02/13/24 21:36: POC Glucose 176 H 02/14/24 00:30: APTT 39.9 H 02/14/24 06:36: POC Glucose 110 H Rhythm Strip Rhythm Strip: Sinus Rhythm Rate: 55 Cardiology Labs/Tests 02/13/24 15:03: WBC Cancelled, Corrected WBC Cancelled, RBC Cancelled, Hgb Cancelled, Hct Cancelled, MCV Cancelled, MCH Cancelled, MCHC Cancelled, Plt Count Cancelled, MPV Cancelled, Immature Gran % (Auto) Cancelled, Neut % (Auto) Cancelled, Lymph % (Auto) Cancelled, Chambers % (Auto) Cancelled, Eos % (Auto) Cancelled, Baso % (Auto) Cancelled, Absolute Neuts (auto) Cancelled, Total Counted Cancelled, Neutrophils % (Manual) Cancelled, Band Neutrophils % Cancelled, Lymphocytes % (Manual) Cancelled, Monocytes % (Manual) Cancelled, Eosinophils % (Manual) Cancelled, Basophils % (Manual) Cancelled, Metamyelocytes % Cancelled, Myelocytes % Cancelled, Promyelocytes % Cancelled, Blast Cells % Cancelled, Plasma Cell % (Manual) Cancelled, Other Cells % Cancelled, Nucleated RBC % Cancelled, PT Cancelled, INR Cancelled, APTT Cancelled, Sodium Cancelled 02/13/24 15:03: Sodium Cancelled, Potassium Cancelled 02/13/24 15:03: Potassium Cancelled, Chloride Cancelled 02/13/24 15:03: Chloride Cancelled, Carbon Dioxide Cancelled 02/13/24 15:03: Carbon Dioxide Cancelled, Anion Gap Cancelled 02/13/24 15:03: Anion Gap Cancelled, BUN Cancelled 02/13/24 15:03: BUN Cancelled, Creatinine Cancelled 02/13/24 15:03: Creatinine Cancelled, Est GFR (MDRD) Af Amer Cancelled 02/13/24 15:03: Est GFR (MDRD) Af Amer Cancelled, Est GFR (MDRD) Non-Af Cancelled 02/13/24 15:03: Est GFR (MDRD) Non-Af Cancelled, BUN/Creatinine Ratio Cancelled 02/13/24 15:03: BUN/Creatinine Ratio Cancelled, Glucose Cancelled 02/13/24 15:03: Glucose Cancelled, Calcium Cancelled 02/13/24 15:03: Calcium Cancelled 02/13/24 15:34: WBC 12.9 H, RBC 4.62, Hgb 14.2, Hct 42.2, MCV 91.3, MCH 30.7, MCHC 33.6, Plt Count 168, MPV 9.7, Immature Gran % (Auto) 0.500, Neut % (Auto) 86.5 H, Lymph % (Auto) 7.8 L, Chambers % (Auto) 3.6, Eos % (Auto) 1.3, Baso % (Auto) 0.3, Absolute Neuts (auto) 11.1 H, Nucleated RBC % 0, PT 14.1, INR 1.1, APTT 86.7 H, Sodium 142, Potassium 4.4, Chloride 113 H, Carbon Dioxide 22.0, Anion Gap 7, BUN 30 H, Creatinine 1.51 H, Est GFR (MDRD) Af Amer 58 L, Est GFR (MDRD) Non-Af 48 L, BUN/Creatinine Ratio 19.9, Glucose 122 H, Calcium 9.4 02/13/24 16:19: D-Dimer Quant (PE/DVT) 0.64 H* 02/13/24 17:10: Phosphorus 2.4 L, Magnesium 1.9 02/14/24 00:30: APTT 39.9 H Rhythm: EKG: ECHO: Stress Test: Cardiac Cath: PCI: CT Surgery: Holter monitor: EPS: PPM: CXR: Chest CT Scan: Radiography Diagnostic Testing: Radiology Impression Chest X-Ray 02/13/24 15:40 IMPRESSION: No acute cardiopulmonary pathology however cannot exclude small left upper lobe nodule. CT recommended for more definitive evaluation. Electronically Signed: Buck Castro MD at 16:21 EDT , Chest CTA 02/13/24 16:23 IMPRESSION: ASHD without evidence for aortic aneurysm periaortic leak or dissection. No evidence for pulmonary embolus. There is however prominent calcification of the left coronary artery Minor subsegmental atelectasis or scarring in both left upper and lower lobes N.B. : The above Results were Read Back by Buck Castro MD to Ronal Vilchis DO, and understanding confirmed on 02/13/2024 17:29:59 (ET). Electronically Signed: Buck Castro MD at 17:37 EDT , ADDENDUM: 02/13/24 1744 IMPRESSION: ASHD without evidence for aortic aneurysm periaortic leak or dissection. No evidence for pulmonary embolus. There is however prominent calcification of the left coronary artery Minor subsegmental atelectasis or scarring in both left upper and lower lobes N.B. : The above Results were Read Back by Buck Castro MD to Ronal Vilchis DO, and understanding confirmed on 02/13/2024 17:29:59 (ET). Electronically Signed: Buck Castro MD at 17:37 EDT Reading Location ID and State: [facility] / [place] Tel , Service support , Physical Exam Const alert and oriented x3 HEENT normocephalic Eyes EOMs intact bilaterally Neck supple, no JVD and no carotid bruits Chest inspection of chest normal Resp normal respiratory effort and clear to auscultation bilaterally Cardio Rate: bradycardia Rhythm: regular rhythm Heart Sounds: S1 normal and S2 normal; Negative for click, gallop or murmur Peripheral Pulses: radial pulses present bilateral 2+ and dorsalis pedis pulses present right 2+ and left 1+ GI soft to palpation and no bruits Extremity no pedal edema Skin no rashes or lesions noted Neuro Neuro Narrative: Alert and oriented x 3 Psych mental status grossly normal Assessment & Plan Assessment/Plan (1) NSTEMI, initial episode of care: PLAN: Patient presented with an esophageal spastic presentation and what appeared to be a vasovagal episode associated with ST elevation. Following resolution of his discomfort his EKG returned to baseline which showed some minor ST changes and T wave changes in leads I and aVL. This was consistent with an old EKG. His initial enzymes were negative his second set was 800 the third set 4000 high-sensitivity troponin. The CT scan showed heavy calcification of the left anterior descending and left main trunk areas consistent with coronary artery disease. The patient will need left heart catheterization urgently today to define his coronary anatomy. The patient's had no recurrence of his bradycardia arrhythmia he remains in sinus bradycardia at 55 to 60 bpm on telemetry. He has been on IV heparin and topical nitrates. The patient is diabetic on medical therapy he also is on statin therapy. The patient also carries a history of male breast cancer on tamoxifen. (2) Diabetes: QUALIFIERS: Diabetes mellitus type: type 2 Diabetes mellitus group home insulin use: without group home use Diabetes mellitus complication status: without complication Qualified Code(s): E11.9 - Type 2 diabetes mellitus without complications PLAN: The patient is umbilical and about with if he has diabetes however he is on appropriate therapy. His blood sugars have been adequately controlled I do not have a recent hemoglobin A1c. (3) HTN (hypertension): QUALIFIERS: Hypertension type: primary hypertension Qualified Code(s): I10 - Essential (primary) hypertension PLAN: Patient's blood pressure is elevated in the hospital he is on topical nitrates his heart rate is 55-60 and we will avoid beta-jyotsna therapy at this time. He had a history of profound bradycardia with escape rhythm on presentation. Will add losartan 50 mg daily to his medical regiment and in the ambulatory setting could add hydrochlorothiazide to his medical regimen. He is already on amlodipine 10 mg daily. PLAN: Plan 1. The patient will have left heart catheterization done today to define his coronary anatomy. 2. Further recommendations pending the outcome of the catheterization. Charges/Coding Visit Charges Inpatient E&M: 10099 Subs Hosp L2
[2024-02-14 08:23] LABS: Absolute Lymphocyte Count 1.14 X10^3/uL (0.83-4.51); Absolute Neutrophil Count 8.2 X10^3/uL (2.0-7.7); Basophil# 0.05 X10^3/uL; Basophil% 0.5 % (0-1); Eosinophil# 0.16 X10^3/uL; Eosinophils% 1.6 % (0-5); Hematocrit 39.9 % (40-54); Hemoglobin 13.7 g/dL (13.0-16.5); Lymphocyte # 1.14 X10^3/ul (0.83-4.51); Lymphocyte % 11.4 % (19-41); Mean Corp Hgb Conc 34.3 g/dL (32-36); Mean Corpuscular Hgb 31.4 pg (27.0-32.0); Mean Corpuscular Volume 91.5 fL (80-94); Mean Platelet Vol. 9.6 fl (6.2-12.0); Monocyte# 0.48 X10^3/uL; Monocyte% 4.8 % (0-10); NRBC Flagged by Analyzer 0 % (0-5); Neutrophil # 8.16 X10^3/uL (2.7-7.7); Neutrophil % 81.3 % (47-70); Platelet Count 141 K/mm3 (150-450); RBC Distribution Width CV 14.5 % (11.6-14.6); Red Blood Count 4.36 M/mm3 (4.6-6.2)
[2024-02-14 08:58] LABS: Anion Gap 6 (5-15); BUN 26 mg/dL (7-18); BUN/Creat Ratio 17.9 RATIO (10-20); Calcium,Total 8.5 mg/dL (8.5-10.1); Chloride 115 mmol/L (98-107); Cholesterol 133 mg/dL (200); Creatinine, Serum 1.45 mg/dL (0.70-1.30); EST Glomerular Filtration Rate 50 mL/min (>60); Est Glom Filt Rate - Afr Amer 61 mL/min (>60); Estimated Creatinine Clearance 63.24 ml/min; Glucose 121 mg/dL (74-106); High Density Lipoprotein 45 mg/dL; Potassium 4.3 mmol/L (3.5-5.1); Sodium Level 141 mmol/L (136-145); Triglycerides 132 mg/dL; Troponin-I HS 3075 pg/mL (3.0-78.0); Very Low Density Lipoprotein 26 mg/dL (5-40)
[2024-02-14 09:23] LABS: Partial Thromboplast Time 54.3 Seconds (24.1-36.2)
--- NOTE | 2024-02-14 09:23 | PN.HOSP_ITS ---
Reason for Visit Reason for Visit: Diagnoses Malignant neoplasm of unspecified site of unspecified male breast (02/13/24) Type 2 diabetes mellitus without complications (02/13/24) Essential (primary) hypertension (02/13/24) Non-ST elevation (NSTEMI) myocardial infarction (02/13/24) Chest pain, unspecified (02/13/24) Subjective Subjective Feels better post-cath. States that his fingers on right hand are back to normal as a previously appeared black after the catheterization. Objective Data Objective Data Vital Signs: Vital Signs Temp Pulse Resp BP Pulse Ox O2 Del Method O2 Flow Rate 36.7 C 57 L 16 168/95 H 96 Room Air 2 02/14/24 06:31 02/14/24 06:31 02/14/24 06:31 02/14/24 06:31 02/14/24 06:31 02/14/24 08:21 02/13/24 18:32 Oxygen Flow Rate (L/min) 2 Oxygen Delivery Method Room Air Weight: 127.7 kg Body Mass Index (BMI) 34.2 Intake & Output: Intake and Output for Last 24 Hours 02/12/24 02/13/24 02/14/24 23:59 23:59 23:59 Intake Total 1000 / 1000 72 / 72 Output Total 500 / 500 300 / 300 Balance 500 / 500 -228 / -228 Lab / Micro Data 02/14/24 08:15 02/14/24 08:15 Labs: Laboratory Results - last 24 hr 02/13/24 15:03: WBC Cancelled, Corrected WBC Cancelled, RBC Cancelled, Hgb Cancelled, Hct Cancelled, MCV Cancelled, MCH Cancelled, MCHC Cancelled, RDW Std Deviation Cancelled, RDW Coeff of Socrates Cancelled, Plt Count Cancelled, MPV Cancelled, Immature Gran % (Auto) Cancelled, Neut % (Auto) Cancelled, Lymph % (Auto) Cancelled, [place] % (Auto) Cancelled, Eos % (Auto) Cancelled, Baso % (Auto) Cancelled, Absolute Neuts (auto) Cancelled, Absolute Lymphs (auto) Cancelled, Total Counted Cancelled, Neutrophils % (Manual) Cancelled, Band Neutrophils % Cancelled, Lymphocytes % (Manual) Cancelled, Monocytes % (Manual) Cancelled, Eosinophils % (Manual) Cancelled, Basophils % (Manual) Cancelled, Metamyelocytes % Cancelled, Myelocytes % Cancelled, Promyelocytes % Cancelled, Blast Cells % Cancelled, Plasma Cell % (Manual) Cancelled, Other Cells % Cancelled, Nucleated RBC % Cancelled, Nucleated RBCs/100 WBC Cancelled, Differential Comment Cancelled, Diff Path Review Cancelled, Hypersegmented Neuts Cancelled, Atypical Lymphocytes Cancelled, Reactive Lymphocytes Cancelled, Smudge Cells Cancelled, Toxic Granulation Cancelled, Toxic Vacuolation Cancelled, Dohle Bodies Cancelled, Romy Rods Cancelled, Platelet Estimate Cancelled, Plt Morphology Comment Cancelled, RBC Morphology Cancelled 02/13/24 15:03: RBC Morphology Cancelled, Polychromasia Cancelled, Hypochromasia Cancelled, Basophilic Stippling Cancelled, Anisocytosis Cancelled, Microcytosis Cancelled, Macrocytosis Cancelled, Spherocytes Cancelled, Sickle Cells Cancelled, Target Cells Cancelled, Tear Drop Cells Cancelled, Ovalocytes Cancelled, Stomatocytes Cancelled, Rodríg[place] Bodies Cancelled, [place] Cells Cancelled, Bite Cells Cancelled, Crenated Cell Cancelled, Acanthocytes (Spur) Cancelled, Rouleaux Cancelled, Schistocytes Cancelled, PT Cancelled, INR Cancelled, APTT Cancelled, Sodium Cancelled 02/13/24 15:03: Sodium Cancelled, Potassium Cancelled 02/13/24 15:03: Potassium Cancelled, Chloride Cancelled 02/13/24 15:03: Chloride Cancelled, Carbon Dioxide Cancelled 02/13/24 15:03: Carbon Dioxide Cancelled, Anion Gap Cancelled 02/13/24 15:03: Anion Gap Cancelled, BUN Cancelled 02/13/24 15:03: BUN Cancelled, Creatinine Cancelled 02/13/24 15:03: Creatinine Cancelled, Estim Creat Clear Calc Cancelled 02/13/24 15:03: Estim Creat Clear Calc Cancelled, Est GFR (MDRD) Af Amer Cancelled 02/13/24 15:03: Est GFR (MDRD) Af Amer Cancelled, Est GFR (MDRD) Non-Af Cancelled 02/13/24 15:03: Est GFR (MDRD) Non-Af Cancelled, BUN/Creatinine Ratio Cancelled 02/13/24 15:03: BUN/Creatinine Ratio Cancelled, Glucose Cancelled 02/13/24 15:03: Glucose Cancelled, Calcium Cancelled 02/13/24 15:03: Calcium Cancelled, Troponin I High Sens Cancelled 02/13/24 15:34: WBC 12.9 H, RBC 4.62, Hgb 14.2, Hct 42.2, MCV 91.3, MCH 30.7, MCHC 33.6, RDW Std Deviation 47.7 H, RDW Coeff of Socrates 14.3, Plt Count 168, MPV 9.7, Immature Gran % (Auto) 0.500, Neut % (Auto) 86.5 H, Lymph % (Auto) 7.8 L, [place] % (Auto) 3.6, Eos % (Auto) 1.3, Baso % (Auto) 0.3, Absolute Neuts (auto) 11.1 H, Absolute Lymphs (auto) 1.00, Nucleated RBC % 0, PT 14.1, INR 1.1, APTT 86.7 H, Sodium 142, Potassium 4.4, Chloride 113 H, Carbon Dioxide 22.0, Anion Gap 7, BUN 30 H, Creatinine 1.51 H, Estim Creat Clear Calc 61.16, Est GFR (MDRD) Af Amer 58 L, Est GFR (MDRD) Non-Af 48 L, BUN/Creatinine Ratio 19.9, Glucose 122 H, Calcium 9.4, Troponin I High Sens 56 02/13/24 16:19: D-Dimer Quant (PE/DVT) 0.64 H* 02/13/24 17:10: Phosphorus 2.4 L, Magnesium 1.9, Troponin I High Sens 826 H* 02/13/24 21:32: Troponin I High Sens 4186 H* 02/13/24 21:36: POC Glucose 176 H 02/14/24 00:30: APTT 39.9 H 02/14/24 06:36: POC Glucose 110 H 02/14/24 08:15: WBC 10.0, RBC 4.36 L, Hgb 13.7, Hct 39.9 L, MCV 91.5, MCH 31.4, MCHC 34.3, RDW Std Deviation 48.0 H, RDW Coeff of Socrates 14.5, Plt Count 141 L, MPV 9.6, Immature Gran % (Auto) 0.400, Neut % (Auto) 81.3 H, Lymph % (Auto) 11.4 L, [place] % (Auto) 4.8, Eos % (Auto) 1.6, Baso % (Auto) 0.5, Absolute Neuts (auto) 8.2 H, Absolute Lymphs (auto) 1.14, Nucleated RBC % 0, Sodium 141, Potassium 4.3, Chloride 115 H, Carbon Dioxide 20.0 L, Anion Gap 6, BUN 26 H, Creatinine 1.45 H, Estim Creat Clear Calc 63.24, Est GFR (MDRD) Af Amer 61, Est GFR (MDRD) Non-Af 50 L, BUN/Creatinine Ratio 17.9, Glucose 121 H, Calcium 8.5, Troponin I High Sens 3075 H*, Triglycerides 132, Cholesterol 133, LDL Cholesterol 62, VLDL Cholesterol 26, HDL Cholesterol 45, TSH 4.40 H Radiography Diagnostic Testing: Radiology Impression Chest X-Ray 02/13/24 15:40 IMPRESSION: No acute cardiopulmonary pathology however cannot exclude small left upper lobe nodule. CT recommended for more definitive evaluation. Electronically Signed: Buck Castro MD at 16:21 EDT , Chest CTA 02/13/24 16:23 IMPRESSION: ASHD without evidence for aortic aneurysm periaortic leak or dissection. No evidence for pulmonary embolus. There is however prominent calcification of the left coronary artery Minor subsegmental atelectasis or scarring in both left upper and lower lobes N.B. : The above Results were Read Back by Buck Castro MD to Ronal Vilchis DO, and understanding confirmed on 02/13/2024 17:29:59 (ET). Electronically Signed: Buck Castro MD at 17:37 EDT , ADDENDUM: 02/13/24 1744 IMPRESSION: ASHD without evidence for aortic aneurysm periaortic leak or dissection. No evidence for pulmonary embolus. There is however prominent calcification of the left coronary artery Minor subsegmental atelectasis or scarring in both left upper and lower lobes N.B. : The above Results were Read Back by Buck Castro MD to Ronal Vilchis DO, and understanding confirmed on 02/13/2024 17:29:59 (ET). Electronically Signed: Buck Castro MD at 17:37 EDT Reading Location ID and State: [address] [place] [address] Tel , Service support , Rhythm Strip Rhythm Strip: Sinus Rhythm Rate: 55 Physical Exam Const alert and no apparent distress HEENT head/scalp atraumatic and moist oral mucous membranes Resp normal respiratory effort, no retractions, no use of accessory muscles and clear to auscultation bilaterally Cardio regular rate, regular rhythm, S1 normal heart sound and S2 normal heart sound GI normal to inspection, nondistended, normoactive bowel sounds, soft to palpation and non-tender Extremity Extremity Narrative: Normal cap refill in right fingers. Assessment & Plan Assessment/Plan (1) NSTEMI, initial episode of care: PLAN: Plan NSTEMI * Troponins peaked at 4186, down to 3075. * CTA chest negative for acute processes * PCI with LAUREEN to LAD for 95% stenosis of distal LAD. * ASA, clopidogrel, statin * Cardiology consulted * Echocardiogram pending Bradycardia: * resolved. Monitor Hypertension, urgency * continue amlodipine * PRN hydralazine. 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 Biopsy of left exertive lymph node was negative. Patient follows Dr. Zepeda. On adjuvant tamoxifen. Had adjuvant radiotherapy by Dr. Fisher * Diabetes mellitus type 2: Glucose in BMP is 122. Accu-Cheks insulin coverage with meals sliding scale * CKD stage IIIA: Patient creatinine 1.5. Previous creatinine level was elevated at 1.68-1.95 from August to November 2023. DVT prophylaxis: Not indicated as patient is already on heparin gtt Charges/Coding Visit Charges Inpatient E&M: 66924 Subs Hosp L2
--- NOTE | 2024-02-14 10:32 | CL.I_ITS ---
Patient Name: DAGO KAYE Study Date: 02/14/2024 Performing: Daiana Case MD Ht: 76 inches 193.04 cm : 1945 Wt: 281.9 lbs 127.7 kg Age: 78 Gender: male BSA: 2.56 PROCEDURE(S) PERFORMED DC02-(24058)LHC/COR IC12-(48196/[id number])LAUREEN W/WO PTCA, SINGLE CORONARY ARTERY CLINICAL PROFILE AND CO-MORBIDITIES Indications: ACS <= 24 hrs Heart Failure: None CAD Presentations: Non-STEMI. Symptom onset Date/Time: 02/13/2024 Time Not Available CONCLUSIONS 95% distal Mid LAD 50% prox Ramus 40% ostial LCX Successful PTCA/LAUREEN distal Mid LAD using [place] 2.75x22 mm RECOMMENDATIONS ASA Indefinitley Plavix for at least 12 months DESCRIPTION OF PROCEDURE The patient arrived to the procedure lab. The risks and benefits of the procedure as well as a full description of our services here and lack of surgical backup were fully explained to the patient and/or their significant other prior to the catheterization. The Timeout was completed, verifying the correct patient and procedure. The patient's procedural site was prepped and draped in the usual fashion. Local anesthetic was given subcutaneously to right radial region with Lidocaine 2%. Using a modified Seldinger technique, arterial access was obtained via the right radial artery, a 6Fr sheath was inserted.. Left Coronary Artery selective angiography was performed in multiple views using a 5 Fr. 4.0 Er[place] catheter. Right Coronary Artery selective angiography was then performed in multiple views using a 5 Fr. 4.0 [place] catheterThe images were reviewed and options discussed. A decision was then made to proceed with an Intervention, IVUS or other adjunct procedure. XB 3 Guide catheter was inserted and engaged into the LCA. Runthrough Guide wire was advanced to the LAD. [place] Emerge 2.50 x 15 Balloon catheter was inserted. Balloon catheter was advanced across lesion in the LAD, mid. Angiogram performed pre balloon dilatation. PTCA balloon inflated at 12 atms for 19 secs. Angiogram performed post balloon dilatation. [place] 2.75 x 22 Drug Eluting stent was inserted. Drug Eluting stent was advanced across the lesion in the LAD, mid. Angiogram performed pre stent deployment. Angiogram performed post stent deployment. [place] Emerge 2.75 x 20 Balloon catheter was inserted. Balloon catheter was advanced across lesion in the LAD, mid. Angiogram performed post balloon dilatation. The arterial sheath was pulled and a TR Band was applied for hemostasis CORONARY ANGIOGRAPHY DOMINANCE: Co- Dominant LEFT HEART ASSESSMENT LVEDP: 25 mmHg LEFT MAIN: No significant disease noted LEFT ANTERIOR DESCENDING ARTERY: LAD: Tubular 60% Mid lesion in LAD Tubular Calcified 60% Proximal lesion in LAD Tubular 95% Proximal lesion in LAD DIAGONAL 1: Tubular 50% Ostial lesion in 1st Diagonal CIRCUMFLEX ARTERY: CIRCUMFLEX: Tubular 40% Ostial lesion in circumflex RAMUS: Tubular 50% Proximal lesion in Ramus RIGHT CORONARY ARTERY: RCA: Tubular 20% Proximal lesion in RCA INTERVENTION INFORMATION LESION SITE: LAD (Mid) Lesion Complexity: High/C, lesion length: 21 mm, culprit lesion: Yes Pre Stenosis: 95 % Pre intervention CHRIS flow: 3 PROCEDURE: Drug Eluting Stent with pre and post dilatation Post Stenosis: 0 % Post intervention CHRIS flow: 3 Lesion Devices: Cordis 6 Fr XB3.0 100cm Guide Catheter Terumo .014 180cm Runthrough Extra Floppy straight [employer] NC EMERGE MR 2.50x15 BALLOON Medtronic 2.75 x 22 MALICK FRONTIER LAUREEN [employer] NC EMERGE MR 2.75x20 BALL[place]ON COMPLICATIONS No Complications PROCEDURE MEDICATIONS Versed 2 mg IV Fentanyl 50 mcg IV Versed 2 mg IV Fentanyl 50 mcg IV Versed 1 mg IV Fentanyl 25 mcg IV Oxygen: 2 L/min via nasal cannula Brilinta 180 mg PO @ 02/14/2024 09:44:34 Heparin given IA 02/14/2024 09:34:02 Heparin 8000 unit(s) IV 02/14/2024 09:44:12 Nitro 200 mcg IC 02/14/2024 10:03:49 Verapamil 2.5mg, Ntg 200mcgs, 2000 units of Heparin given IA 02/14/2024 09:34:02 SUMMARY OF HEMODYNAMIC DATA Time AIR REST ECG 09:10:11 LV 145/11, 25 09:36:53 AO 134/66 (90) SA 09:37:09 Signed By Daiana Case MD On 02/14/2024 10:31:28 Daiana Case MD
--- NOTE | 2024-02-14 10:44 | CRPHASE1 ---
Patient Communication Patient Information PHII Cardiac Rehab Discussed with Patient:: Yes Guide to Cardiac Rehab Given to Patient:: Yes Cardiac Rehab Facility Choice List Given to Patient:: Yes Communication to Cardiac Rehab Choice Program [facility] CR PHII:: Communication Given to CR Electrophysiology Nurse Practitioner:: Daiana Case Phase II Cardiac Rehab:: Yes Sessions:: 36 sessions - 3 days/wk, 12 weeks Cardiac Rehabilitation Info Program Information Cardiac Rehabilitation Program Information: Cardiac Rehab The cardiac rehab team at [facility] consists of highly skilled exercise physiologists, nurses, respiratory therapists and physicians working together with you. Our purpose is to help you have a full recovery and achieve the goals you set for yourself. Over the years many of our patients have returned to activities they assumed they would never do again! We can help restore your confidence and motivation to make lifestyle changes that can have a significant impact on your health and quality of life! We can help answer questions and concerns you may have about exercise, lifestyle, medications, diet, stress and anxiety which are common following a hospitalization. WE monitor ECG and vital signs during exercise and discuss your progress with you and report to your physician(s). Cardiac Rehab is proven to help reduce readmissions, improve functional capacity and lower recurrence of problems with your heart. Our Cardiac Rehab program is Certified by the [place] [employer] Pulmonary [employer] (AACVPR) and Accredited by the [place] [employer] through our [facility]. You can contact us at . We invite you to call us with your questions or to get started in our program. If you have other questions or concerns be sure to ask your physician/provider during your follow-up visit. WE look forward to seeing you!
--- NOTE | 2024-02-14 10:46 | CRPH1.INSTRU ---
General Education Discussed with Patient CAD and cardiac anatomy and function:: Patient communicates acknowledgment Explanation of diagnoses and procedures:: Patient communicates acknowledgment Sign/Symptoms of IN:: Patient communicates acknowledgment Antiplatelet therapy: Patient communicates acknowledgment Proper use of NTG-SL: Patient communicates acknowledgment Emergency procedures and activation of EMS: Patient communicates acknowledgment Compliance of all prescribed medications: Patient communicates acknowledgment Smoking Risk Factors Patient Nicotine/Smoking Risk Factors Are:: Non-smoker Recommendations Recommendations Include:: Previous smoker; encourage continued cessation Response Code Nicotine/Smoking Response Code:: Patient communicates acknowledgment Dyslipidemia Risk Factors Patient Dyslipidemia Risk Factors Are:: Total Cholesterol, Triglycerides, HDL and LDL Recommendations Recommendations Include:: Lipid profile provided, Reviewed NCEP/ATP guidelines and Therapeutic Lifestyle Change dietary guidelines Response Code Dyslipidemia Response Code:: Patient communicates acknowledgment Overweight/Obesity Risk Factors Patient Overweight/Obesity Risk Factors Are:: Obesity - > or = 30 Recommendations Recommendations Include:: Weight loss of 5-10%, Reduced calorie diet and Exercise 5-7 times/week Response Code Overweight/Obesity:: Patient communicates acknowledgment Hypertension Recommendations Recommendations Include:: BP <130/80 if diabetic, DASH dietary guidelines, Decrease/maintain normal body weight and Moderation of ETOH Response Code Hypertension:: Patient communicates acknowledgment Diabetes Risk Factors Patient Diabetes Risk Factors Are:: Elevated blood sugars and Post-op hyperglycemia Recommendations Recommendations Include:: Maintain fasting blood sugars 70-110 md/dL, Maintain HgbA1c of 6% or less, Monitor blood sugar as prescribed, Diabetic dietary guidelines and Decrease/maintain body weight Response Code Diabetes:: Patient communicates acknowledgment Metabolic Syndrome Risk Factors Patient Metabolic Syndrome Risk Factors Are [3 of 5]:: Fasting blood sugar > 100 mg/dL, Waist circumference > 35 [female] or 40 [male], High triglyceride >150, Hypertension and Low HDL <40 [male] or < 50 [female] Recommendations Recommendations Include:: Reinforce compliance to risk factor modifications, Patient is diabetic and Encouraged follow-up with Primary Care Physician Response Code Metabolic Syndrome Response Code:: Patient communicates acknowledgment Sedentary Risk Factors Patient Sedentary Risk Factors Are:: Lack of regular exercise Recommendations Recommendations Include:: Aerobic exercise 5-7 times/week for 20-30 minutes continuously, Benefits of regular exercise, Discussed home walking program and Monitored Outpatient Cardiac Rehab Response Code Sedentary Response Code:: Patient communicates acknowledgment Stress Risk Factors Patient Stress Risk Factors Are:: Patient denies stress as a risk factor Recommendations Recommendations Include:: Identification of stressors, and assessment of coping skills and Stress management techniques Response Code Stress Response Code:: Patient communicates acknowledgment
[2024-02-14] MEDS: 0.9% Normal Saline (1000mL) 1,000 ML 150 ML IV (10:47)
[2024-02-14] MEDS: Finasteride 5 MG Tablet PO (10:47)
[2024-02-14] MEDS: Losartan Potassium 25 MG Tablet PO (10:47)
[2024-02-14] MEDS: Allopurinol 300 MG Tablet PO (10:48)
[2024-02-14 11:39] LABS: Bedside Glucose 119 mg/dL (74-106)
--- NOTE | 2024-02-14 11:40 | CASEMGMT ---
JARETH VALENTINE Assessment: Face to Face with pt for initial transition planning/care coordination assessment. JARETH VALENTINE introduced self and role at [facility], pt voices understanding and consents to assessment. Pt is A&O x4 and answers all questions appropriately at this time. Pt sitting up in bed in no distress. Care providers, pharmacy, and demographics verified/updated. Admitting Dx: Chest pain/pressure PCP: Ge Specialists: Duane, Oncologist Preferred Pharmacy: [facility] Insurance: [facility], AARP Prescription Benefit: yes LNOK: Son Living Arrangements: Pt lives with son, SANJU, 2 grandchildren and 2 great grandchildren in a ranch home with 3 steps to enter. Pt states I with ADLs and needs some assistance with cooking and cleaning. Pt has meals delivered every Sunday and on he picks up food from a food bank. Transportation: Pt drives self and denies concerns with transportation. DME: Glucometer and supplies, cane, raised toilet. HHC/SNF: Denies Hx of. Pt states no concerns with going home at time of dc. Pt states no further concerns/needs. CM to follow. Advised pt to ask CM if any further question/concerns/needs arise, voices understanding. Pt Goal: Home Plan: Home, will follow plan of care. Jeffery TEMPLETON CM
--- NOTE | 2024-02-14 12:18 | EKG12_ITS ---
Test Reason : ADMISSION EKG Blood Pressure : / mmHG Vent. Rate : 048 BPM Atrial Rate : 048 BPM P-R Int : 190 ms QRS Dur : 090 ms QT Int : 456 ms P-R-T Axes : 057 -25 090 degrees QTc Int : 407 ms Sinus bradycardia Cannot rule out Anterior infarct , age undetermined Nonspecific T wave changes Abnormal ECG When compared with ECG of 13-FEB-2024 18:09, MANUAL COMPARISON REQUIRED, DATA IS UNCONFIRMED Confirmed by Prem Joseph ([id number]), advertising editor NBA BARFIELD ([id number]) on 02/15/2024 6:21:00 AM Referred By: JOSE CARLOS Confirmed By:Prem Joseph
--- NOTE | 2024-02-14 13:47 | CHAPLAIN ---
Type of Pastoral Visit _x__ Initial Visit ___ Follow-up Visit ___ On-call Visit ___ General Patient Visit ___ Spiritual Assessment ___ Family Conference ___ Bereavement ___ Rapid Response ___ Code Blue ___ Other (describe below) Pastoral Care Referral From _x__ Patient ___ Family ___ Nurse ___ Physician ___ Certified Income Tax Preparer ___ Emergency Department ___ Other (describe below) Sacrament/Intervention _x__ Active listening ___ Anointing ___ Christian ___ Bereavement ___ Communion ___ Brit exploration ___ _x__ Life review _x__ Prayer ___ Reconciliation ___ Sacrament of Sick ___ Supportive presence ___ Wedding ___ Other (describe below) Pastoral Comments follow up to this patient who came in as a stemi alert yesterday and was taken to the environmental laboratory technician; this patient had a stent placed this morning and is alert and talkative; pt reports on his hospital stay and care; pt is very talkative and expressive of his thoughts and feelings; pt had requested a visit from his priests before his procedure and pt says now it is not essential; [place] [place] was called to notify priests of pt's admission and to let them decide if they could come to see him; pt welcomes a prayer
[2024-02-14] MEDS: Clopidogrel Bisulfate 300 MG Tablet PO (16:51)
[2024-02-14 17:11] LABS: Bedside Glucose 137 mg/dL (74-106)
[2024-02-14] MEDS: Atorvastatin Calcium 40 MG Tablet PO (21:13)
[2024-02-14] MEDS: Carvedilol 3.125 MG TABLET PO (21:13)
[2024-02-15 01:02] LABS: Bedside Glucose 92 mg/dL (74-106)
[2024-02-15 04:07] VITALS: BP 158/82; PULSE 56; RESP 18; TEMP 36.7; O2SAT 96
[2024-02-15 05:11] LABS: Hematocrit 40.5 % (40-54); Hemoglobin 14.1 g/dL (13.0-16.5); Mean Corp Hgb Conc 34.8 g/dL (32-36); Mean Corpuscular Hgb 32.4 pg (27.0-32.0); Mean Corpuscular Volume 93.1 fL (80-94); Mean Platelet Vol. 9.6 fl (6.2-12.0); Platelet Count 153 K/mm3 (150-450); RBC Distribution Width CV 14.3 % (11.6-14.6); RBC Distribution Width SD 48.9 fl (35.1-43.9); Red Blood Count 4.35 M/mm3 (4.6-6.2); White Blood Count 9.4 K/mm3 (4.4-11.0)
--- NOTE | 2024-02-15 05:24 | EKG12_ITS ---
Test Reason : PRE OP Blood Pressure : / mmHG Vent. Rate : 048 BPM Atrial Rate : 048 BPM P-R Int : 192 ms QRS Dur : 096 ms QT Int : 530 ms P-R-T Axes : 056 -19 132 degrees QTc Int : 473 ms Sinus bradycardia Septal infarct , age undetermined T wave abnormality, consider anterolateral ischemia Abnormal ECG When compared with ECG of 14-FEB-2024 12:25, MANUAL COMPARISON REQUIRED, DATA IS UNCONFIRMED Confirmed by HAYDEE VANESSA, VALERIE ([id number]), online content editor NBA BARFIELD ([id number]) on 02/26/2024 11:46:07 AM Referred By: Confirmed By:VALERIE HUBBARD MD
[2024-02-15 05:33] LABS: ALB/GLOB Ratio 1.2 RATIO (0.9-2.4); AST(SGOT) 42 U/L (15-37); Alanine Aminotransfer ALT/SGPT 15 U/L (16-61); Albumin, Serum 3.4 g/dL (3.2-5.0); Alkaline Phosphatase 62 U/L (45-117); Anion Gap 8 (5-15); BUN 20 mg/dL (7-18); BUN/Creat Ratio 14.5 RATIO (10-20); Calcium,Total 8.6 mg/dL (8.5-10.1); Chloride 112 mmol/L (98-107); Creatinine, Serum 1.38 mg/dL (0.70-1.30); EST Glomerular Filtration Rate 53 mL/min (>60); Est Glom Filt Rate - Afr Amer 64 mL/min (>60); Estimated Creatinine Clearance 66.45 ml/min; Globulin 2.8 g/dL (2.2-4.2); Glucose 118 mg/dL (74-106); Potassium 4.1 mmol/L (3.5-5.1); Protein, Total 6.2 g/dL (6.4-8.2); Sodium Level 140 mmol/L (136-145)
--- NOTE | 2024-02-15 05:55 | EKG12_ITS ---
Test Reason : REPEAT Blood Pressure : / mmHG Vent. Rate : 046 BPM Atrial Rate : 046 BPM P-R Int : 200 ms QRS Dur : 092 ms QT Int : 448 ms P-R-T Axes : 050 -23 093 degrees QTc Int : 392 ms Sinus bradycardia Septal infarct , age undetermined Abnormal ECG Confirmed by TASHA VANESSA, GHAZALA ([id number]), order editor NBA BARFIELD ([id number]) on 02/20/2024 10:31:46 A M Referred By: Confirmed By:LCARENCE CORDOVA MD
[2024-02-15] MEDS: Levothyroxine 125 MCG Tablet PO (06:47)
[2024-02-15 07:24] VITALS: O2SAT 94
--- NOTE | 2024-02-15 08:05 | PN.HOSP_ITS ---
Reason for Visit Reason for Visit: Diagnoses Malignant neoplasm of unspecified site of unspecified male breast (02/13/24) Type 2 diabetes mellitus without complications (02/13/24) Essential (primary) hypertension (02/13/24) Non-ST elevation (NSTEMI) myocardial infarction (02/13/24) Chest pain, unspecified (02/13/24) Subjective Subjective Feeling well. Anxious to go home. No chest pain. Objective Data Objective Data Vital Signs: Vital Signs Temp Pulse Resp BP Pulse Ox O2 Del Method O2 Flow Rate 36.7 C 56 L 18 158/82 H 94 Room Air 2 02/15/24 04:07 02/15/24 04:07 02/15/24 04:07 02/15/24 04:07 02/15/24 07:24 02/15/24 07:54 02/13/24 18:32 Oxygen Flow Rate (L/min) 2 Oxygen Delivery Method Room Air Weight: 127.7 kg Body Mass Index (BMI) 34.2 Intake & Output: Intake and Output for Last 24 Hours 02/13/24 02/14/24 02/15/24 23:59 23:59 23:59 Intake Total 1000 / 1000 2947.2 / 3067.2 180 / 180 Output Total 500 / 500 600 / 600 Balance 500 / 500 2347.2 / 2467.2 180 / 180 Lab / Micro Data 02/15/24 04:24 02/15/24 04:24 Labs: Laboratory Results - last 24 hr 02/14/24 08:15: WBC 10.0, RBC 4.36 L, Hgb 13.7, Hct 39.9 L, MCV 91.5, MCH 31.4, MCHC 34.3, RDW Std Deviation 48.0 H, RDW Coeff of Socrates 14.5, Plt Count 141 L, MPV 9.6, Immature Gran % (Auto) 0.400, Neut % (Auto) 81.3 H, Lymph % (Auto) 11.4 L, [place] % (Auto) 4.8, Eos % (Auto) 1.6, Baso % (Auto) 0.5, Absolute Neuts (auto) 8.2 H, Absolute Lymphs (auto) 1.14, Nucleated RBC % 0, APTT 54.3 H, Sodium 141, Potassium 4.3, Chloride 115 H, Carbon Dioxide 20.0 L, Anion Gap 6, BUN 26 H, C reatinine 1.45 H, Estim Creat Clear Calc 63.24, Est GFR (MDRD) Af Amer 61, Est GFR (MDRD) Non-Af 50 L, BUN/Creatinine Ratio 17.9, Glucose 121 H, Calcium 8.5, T roponin I High Sens 3075 H*, Triglycerides 132, Cholesterol 133, LDL Cholesterol 62, VLDL Cholesterol 26, HDL Cholesterol 45, TSH 4.40 H 02/14/24 11:19: POC Glucose 119 H 02/14/24 16:49: POC Glucose 137 H 02/14/24 21:22: POC Glucose 92 02/15/24 04:24: WBC 9.4, RBC 4.35 L, Hgb 14.1, Hct 40.5, MCV 93.1, MCH 32.4 H, MCHC 34.8, RDW Std Deviation 48.9 H, RDW Coeff of Socrates 14.3, Plt Count 153, MPV 9.6, Sodium 140, Potassium 4.1, Chloride 112 H, Carbon Dioxide 20.0 L, Anion Gap 8, BUN 20 H, Creatinine 1.38 H, Estim Creat Clear Calc 66.45, Est GFR (MDRD) Af Amer 64, Est GFR (MDRD) Non-Af 53 L, BUN/Creatinine Ratio 14.5, Glucose 118 H, Calcium 8.6, Total Bilirubin 1.30 H, AST 42 H, ALT 15 L, Alkaline Phosphatase 62, Total Protein 6.2 L, Albumin 3.4, Globulin 2.8, Albumin/Globulin Ratio 1.2 Radiography Diagnostic Testing: Radiology Impression Echocardiogram 02/13/24 16:12 Interpretation Summary Moderate concentric left ventricular hypertrophy. Hyperdynamic left ventricle. Estimated LVEF 75%. The left atrium is mildly enlarged. Moderate mitral annular calcification. Right ventricular systolic pressure estimated to be 39 mmHg. Ordering Physician: Daiana Case Referring Physician: WILLIE PIERCE Performed By: Swetha Shirley KASI Rhythm Strip Rhythm Strip: Sinus Rhythm Rate: 55 Physical Exam Const alert and no apparent distress HEENT head/scalp atraumatic and moist oral mucous membranes Resp normal respiratory effort and no retractions Extremity Extremity Narrative: Some ecchymosis in the right wrist. Normal cap refill. Moves digits on right hand without difficulty. Neuro Sensorium / Orientation: awake and alert Assessment & Plan Assessment/Plan (1) NSTEMI, initial episode of care: PLAN: Plan NSTEMI * Troponins peaked at 4186, down to 3075. * CTA chest negative for acute processes * PCI with LAUREEN to LAD for 95% stenosis of distal LAD. * ASA, clopidogrel, statin * DW Dr. Morales. Stable for discharge from cardiology standpoint. * Echocardiogram check fraction of 35%. Left atrium mildly enlarged. Bradycardia: * resolved. Monitor * No beta-jyotsna on discharge. Hypertension, urgency * continue amlodipine * PRN hydralazine. 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 Biopsy of left exertive lymph node was negative. Patient follows Dr. Zepeda. On adjuvant tamoxifen. Had adjuvant radiotherapy by Dr. Fisher * Diabetes mellitus type 2: Glucose in BMP is 122. Accu-Cheks insulin coverage with meals sliding scale * CKD stage IIIA: Patient creatinine 1.5. Previous creatinine level was elevated at 1.68-1.95 from August to November 2023.
[2024-02-15 09:48] VITALS: BP 160/91; PULSE 52; RESP 18; TEMP 36.9; O2SAT 97
[2024-02-15] MEDS: Allopurinol 300 MG Tablet PO (09:50)
[2024-02-15] MEDS: Clopidogrel Bisulfate 75 MG Tablet PO (09:50)
[2024-02-15] MEDS: amLODIPine 10 MG Tablet PO (09:50)
[2024-02-15] MEDS: Aspirin E.C. 81 MG Tablet PO (09:50)
[2024-02-15] MEDS: Losartan Potassium 25 MG Tablet PO (09:50)
[2024-02-15] MEDS: Finasteride 5 MG Tablet PO (09:51)
[2024-02-15 11:37] LABS: Bedside Glucose 86 mg/dL (74-106)
[2024-02-15 11:48] LABS: Bedside Glucose 112 mg/dL (74-106)
--- NOTE | 2024-02-15 12:34 | DS.PCM_ITS ---
Providers Date of Admission: 02/13/24 Primary Care Physician: Dr. Saurabh Pierce MD Consultations 02/13/24 18:57 Consult: Cardiology Routine Consulting Provider: Prem Joseph Reason for Consult: Chest Pain/NSTEMI EMERGENT Consult: No MD Notified: Yes Date Notified: 02/13/24 Time Notified: 18:26 Method of Notification: ED Physician Initiated Reason For Visit: CHEST PAIN/PRESSURE Diagnosis Discharge Diagnosis (1) NSTEMI, initial episode of care: Status: Acute Code(s): I21.4 - Non-ST elevation (NSTEMI) myocardial infarction Plan NSTEMI * Troponins peaked at 4186, down to 3075. * CTA chest negative for acute processes * PCI with LAUREEN to LAD for 95% stenosis of distal LAD. * ASA, clopidogrel, statin * DW Dr. Morales. Stable for discharge from cardiology standpoint. * Echocardiogram check fraction of 35%. Left atrium mildly enlarged. Bradycardia: * resolved. Monitor * No beta-arron on discharge. Hypertension, urgency * continue amlodipine * PRN hydralazine. 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 Biopsy of left exertive lymph node was negative. Patient follows Dr. Zepeda. On adjuvant tamoxifen. Had adjuvant radiotherapy by Dr. Fisher * Diabetes mellitus type 2: Glucose in [facility] is 122. Accu-Cheks insulin coverage with meals sliding scale * CKD stage IIIA: Patient creatinine 1.5. Previous creatinine level was elevated at 1.68-1.95 from August to November 2023. Medications at Discharge Home Medications omeprazole 20 mg capsule,delayed release 20 mg PO DAILY 01/09/14 allopurinol 300 mg tablet 300 mg PO DAILY 01/02/23 amlodipine 10 mg tablet 10 mg PO DAILY 01/02/23 finasteride 5 mg tablet 5 mg PO DAILY 01/02/23 levothyroxine 150 mcg capsule 125 mcg PO DAILY 01/02/23 metformin 1,000 mg tablet 1,000 mg PO BID 01/02/23 cetirizine 10 mg capsule (Zyrtec) 10 mg PO DAILY 01/16/23 fluticasone propionate 50 mcg/actuation nasal spray,suspension 1 spray intranasal DAILY PRN allergy symptoms 01/16/23 tamoxifen 20 mg tablet 20 mg PO DAILY 90 days #90 tabs 06/04/23 aspirin 81 mg tablet,delayed release 81 mg PO BREAKFAST #0 tabs 02/15/24 atorvastatin 40 mg tablet 40 mg PO QHS #30 tabs 02/15/24 clopidogrel 75 mg tablet 75 mg PO DAILY #30 tabs 02/15/24 losartan 25 mg tablet 25 mg PO DAILY #30 tabs 02/15/24 Hospital Course Operations None Procedures 2-D Echocardiogram and Cardiac catheterization Summary of Care Provided Minutes Spent on Discharge: 35 Hospital Course: Patient presents with chest pain. Found to have a non-STEMI. Patient underwent PCI that showed stenosis of his LAD to which he underwent PCI to that lesion. He also noted to have additional but lesser degree stenosis in other vessels but were not to the level requiring PCI. Patient had some ecchymosis at his cath site but no hematoma. Patient did have some bradycardia while he was here with a heart rate in the 40s to 50s so beta-blockers will not be initiated. Patient will continue with aspirin, clopidogrel and atorvastatin. Weight / BMI Weight Weight: 127.7 kg Body Mass Index (BMI) 34.2 ABG / Lab / Microbiology Data 02/15/24 04:24 02/15/24 04:24 Laboratory: Laboratory Results - last 24 hr 02/14/24 16:49: POC Glucose 137 H 02/14/24 21:22: POC Glucose 92 02/15/24 04:24: WBC 9.4, RBC 4.35 L, Hgb 14.1, Hct 40.5, MCV 93.1, MCH 32.4 H, MCHC 34.8, RDW Std Deviation 48.9 H, RDW Coeff of Socrates 14.3, Plt Count 153, MPV 9.6, Sodium 140, Potassium 4.1, Chloride 112 H, Carbon Dioxide 20.0 L, Anion Gap 8, BUN 20 H, Creatinine 1.38 H, Estim Creat Clear Calc 66.45, Est GFR (MDRD) Af Amer 64, Est GFR (MDRD) Non-Af 53 L, BUN/Creatinine Ratio 14.5, Glucose 118 H, Calcium 8.6, Total Bilirubin 1.30 H, AST 42 H, ALT 15 L, Alkaline Phosphatase 62, Total Protein 6.2 L, Albumin 3.4, Globulin 2.8, Albumin/Globulin Ratio 1.2 02/15/24 06:50: POC Glucose 112 H 02/15/24 11:13: POC Glucose 86 Radiography Diagnostic Testing: Radiology Impression Echocardiogram 02/13/24 16:12 Interpretation Summary Moderate concentric left ventricular hypertrophy. Hyperdynamic left ventricle. Estimated LVEF 75%. The left atrium is mildly enlarged. Moderate mitral annular calcification. Right ventricular systolic pressure estimated to be 39 mmHg. Ordering Physician: Daiana Case Referring Physician: SAURABH PIERCE Performed By: Swetha Shirley JEVON D/C Instructions Discharge Diet: Low fat / Low cholesterol Meaningful Use Info Meaningful Use Meaningful Use Diagnoses (Choose all that apply): AMI AMI/Post PCI/Angioplasty Aspirin given w/in 24hrs of arrival?: Yes ASA at discharge?: Yes Antiplatelet Therapy at Discharge:: Yes Statins at discharge?: Yes Patrick/ARB at discharge?: Yes Beta Arron at discharge?: No Reason Beta Arron not ordered:: Allergy (Not an allergy but due to bradycardia he will not be receiving beta-arron) Done w/ Acute MD measure.: Yes Documented LVEF (%): 75 Ischemic Stroke Statin Dosing Therapy Reference: STATIN DOSE THERAPY REFERENCE: * Patients > 75 years receive moderate or high dose statin therapy. * Patients 75 years or YOUNGER should receive HIGH intensity statin dose unless contraindicated. You will be required to document reason for non-treatment if statin daily dose does not meet guidelines. HIGH DOSE STATIN THERAPY DAILY Atorvastatin > than or = to 40 mg Rosuvastatin > than or = to 20 mg Amlodipine + Atorvastatin > than or = to 2.5/40 mg Ezetimibe + Simvastatin 10/80 mg Simvastatin 80mg Discharge Plan Admission Admit Date/Time: 02/13/24 16:41 Primary Reason for Your Visit: Myocardial infarction Attending Provider: Sarthak Feliz Primary Care Provider: Saurabh Pierce Consulting Providers: Prem Joseph; Jose Pantoja Instructions Patient Instructions: Cardiac Catheterization Dc Additional Instructions / Restrictions: You had a myocardial infarction (known as heart attack). You had a stent placed when your vessels. Is a very importantly do take aspirin and Plavix (also known as clopidogrel), cholesterol medication (in your case atorvastatin) and additional blood pressure medication called losartan. Please follow-up with cardiology in the next couple weeks. Discharge Orders/Prescriptions Prescriptions: New aspirin 81 mg Tablet,Delayed Release (Dr/Ec) 81 mg PO BREAKFAST Qty: 0 0RF atorvastatin 40 mg Tablet 40 mg PO QHS Qty: 30 0RF clopidogrel 75 mg Tablet 75 mg PO DAILY Qty: 30 0RF losartan 25 mg Tablet 25 mg PO DAILY Qty: 30 0RF Continued finasteride 5 mg tablet 5 mg PO DAILY amlodipine 10 mg tablet 10 mg PO DAILY levothyroxine 150 mcg capsule 125 mcg PO DAILY allopurinol 300 mg tablet 300 mg PO DAILY fluticasone propionate 50 mcg/actuation spray,suspension 1 spray intranasal DAILY PRN (Reason: allergy symptoms) Rx Instructions: administer into each nostril Zyrtec 10 mg capsule 10 mg PO DAILY tamoxifen 20 mg tablet 20 mg PO DAILY 90 Days Qty: 90 3RF omeprazole 20 MG capsule 20 mg PO DAILY Held metformin 1,000 mg tablet 1,000 mg PO BID Hold Instructions: Resume on 02/19/24. Discontinued meloxicam 15 mg tablet 15 mg PO DAILY rosuvastatin 5 mg tablet 5 mg PO DAILY naproxen 250 mg tablet 250 mg PO BID PRN (Reason: pain) Referrals / Follow Up: [facility] [Provider Group] - Within 2 Weeks Saurabh Pierce MD [Primary Care Provider] - Within 2 Weeks Disposition Disposition (needs filled in before D/C Order can be placed): Home, Self Care Charges/Coding Visit Charges Inpatient E&M: 40226 Disch Hosp >30min
--- NOTE | 2024-02-15 13:40 | CASEMGMT ---
Patient had order for discharge. RN CM in to discuss needs at discharge, son at bedside. Patient denies needs or help at discharge. Patient had no further questions or concerns.
--- NOTE | 2024-02-15 13:42 | PHA.DC.MC.R ---
Pharmacy [facility] has performed discharge medication reconciliation and counseling for this patient. The patient's discharge medication list was reviewed for discrepancies and discrepancies were resolved. The patient was counseled on the following discharge medications and changes in medications for homegoing were reviewed. The Reason for Use, instructions for use, and potential side effects were reviewed for all new medications. The patient's questions regarding all of their medications were answered. 1. Aspirin 81 mg PO daily 2. Clopidogrel 75 mg PO daily 3. Atorvastatin 40 mg PO daily 4. Losartan 25 mg PO daily The patient was able to verbally demonstrate an understanding of their discharge medications. The patient was counselled on new medications by pharmacy technician trainee Chase. Medications at Discharge Home Medications omeprazole 20 mg capsule,delayed release 20 mg PO DAILY GERD 01/09/14 allopurinol 300 mg tablet 300 mg PO DAILY gout 01/02/23 amlodipine 10 mg tablet 10 mg PO DAILY blood pressure 01/02/23 finasteride 5 mg tablet 5 mg PO DAILY prostate 01/02/23 levothyroxine 150 mcg capsule 125 mcg PO DAILY thyroid 01/02/23 metformin 1,000 mg tablet 1,000 mg PO BID diabetes 01/02/23 cetirizine 10 mg capsule (Zyrtec) 10 mg PO DAILY allergies 01/16/23 fluticasone propionate 50 mcg/actuation nasal spray,suspension 1 spray intranasal DAILY PRN allergy symptoms 01/16/23 tamoxifen 20 mg tablet 20 mg PO DAILY breast cancer 90 days #90 tabs 06/04/23 aspirin 81 mg tablet,delayed release 81 mg PO BREAKFAST #0 tabs 02/15/24 atorvastatin 40 mg tablet 40 mg PO DAILY #30 tabs 02/15/24 clopidogrel 75 mg tablet 75 mg PO DAILY #30 tabs 02/15/24 losartan 25 mg tablet 25 mg PO DAILY #30 tabs 02/15/24
[2024-02-27 11:37] LABS: ACT Activated Clotting Time 256 sec (74-137)
== END 2024-02-15 14:02 | disposition home or self-care (01) | DRG 322 ==
LOC: ED 17:49 → PCU 17:50
PROVIDERS: Internal Medicine Cardiovascular Disease; Admitting Provider Internal Medicine; Emergency Provider Emergency Medicine; PCP Family Medicine
DX: I21.4 Non-ST elevation (NSTEMI) myocardial infarction (principal); C50.922 Malignant neoplasm of unspecified site of left male breast; E11.22 Type 2 diabetes mellitus with diabetic chronic kidney disease; N18.31 Chronic kidney disease, stage 3a; I12.9 Hypertensive chronic kidney disease with stage 1 through stage 4 chronic kidney disease, or unspecified chronic kidney disease; I49.8 Other specified cardiac arrhythmias; I16.0 Hypertensive urgency; I25.10 Atherosclerotic heart disease of native coronary artery without angina pectoris; Z51.5 Encounter for palliative care; Z82.3 Family history of stroke; Z80.1 Family history of malignant neoplasm of trachea, bronchus and lung; Z17.0 Estrogen receptor positive status [ER+]; Z87.891 Personal history of nicotine dependence; Z66 Do not resuscitate; Z79.84 Long term (current) use of oral hypoglycemic drugs; Z90.12 Acquired absence of left breast and nipple
CPT/HCPCS: 36415; 71045; 71275; 80048; 80053; 80061; 82962; 83735; 84100; 84443; 84484; 85025; 85027; 85347; 85379; 85610; 85730; 92610; 92928; 93005; 93306; 93454; 94668; 97110; 97162; 97166; 99152; 99153; 99285; J7030; Q9957; Q9967; A4216; C1725; C1769; C1874; C1887; C1894; C8929; C9600; J2405

== ENCOUNTER → 2024-02-27 | Outpatient (CLI) | payer MEDICARE, OTHER, SELFPAY ==
[2024-02-27 12:59] LABS: Anion Gap 10 (5-15); BUN 29 mg/dL (7-18); BUN/Creat Ratio 17.5 RATIO (10-20); Calcium,Total 9.1 mg/dL (8.5-10.1); Chloride 113 mmol/L (98-107); Cholesterol 121 mg/dL (200); Creatinine, Serum 1.66 mg/dL (0.70-1.30); EST Glomerular Filtration Rate 43 mL/min (>60); Est Glom Filt Rate - Afr Amer 52 mL/min (>60); Free T3 1.5 pg/mL (2.18-3.98); Glucose 102 mg/dL (74-106); High Density Lipoprotein 37 mg/dL; Potassium 4.7 mmol/L (3.5-5.1); Sodium Level 139 mmol/L (136-145); T4 Free Direct 1.21 ng/dL (0.76-1.46); Thyroid Stim Hormone (TSH) 3.62 uIU/mL (0.358-3.74); Triglycerides 170 mg/dL; Very Low Density Lipoprotein 34 mg/dL (5-40)
== END | disposition home or self-care (01) ==
LOC: MFPLAB 10:07
PROVIDERS: PCP Family Medicine; Visit Provider Family Medicine
DX: E03.9 Hypothyroidism, unspecified (principal); N28.9 Disorder of kidney and ureter, unspecified; I10 Essential (primary) hypertension
CPT/HCPCS: 36415; 80048; 80061; 84439; 84443; 84481

== ENCOUNTER → 2024-02-29 | Outpatient (CLI) | payer MEDICARE, OTHER, SELFPAY ==
--- NOTE | 2024-02-29 08:00 | CR.HP_ITS ---
CR - History & Physical General Arrival date:: 02/29/24 Arrival time:: 08:00 Date of Referral:: 02/14/24 Date of CR Evaluation:: 02/29/24 Referring Physician: Dr. Case Primary Diagnosis: PCI with stent History of Present Cardiac Event Onset Date PTCA or coronary stenting:: Yes (onset 02/14/24) Medications Ambulatory Orders ?Medication ?Instructions ?Recorded omeprazole 20 mg capsule,delayed 20 mg PO DAILY GERD 01/09/14 release allopurinol 300 mg tablet 300 mg PO DAILY gout 01/02/23 amlodipine 10 mg tablet 10 mg PO DAILY blood pressure 01/02/23 finasteride 5 mg tablet 5 mg PO DAILY prostate 01/02/23 levothyroxine 150 mcg capsule 125 mcg PO DAILY thyroid 01/02/23 metformin 1,000 mg tablet 1,000 mg PO BID diabetes 01/02/23 cetirizine 10 mg capsule (Zyrtec) 10 mg PO DAILY allergies 01/16/23 fluticasone propionate 50 1 spray intranasal DAILY PRN 01/16/23 mcg/actuation nasal allergy symptoms spray,suspension tamoxifen 20 mg tablet 20 mg PO DAILY breast cancer 90 06/04/23 days #90 tabs aspirin 81 mg tablet,delayed 81 mg PO BREAKFAST #0 tabs 02/15/24 release atorvastatin 40 mg tablet 40 mg PO DAILY #30 tabs 02/15/24 clopidogrel 75 mg tablet 75 mg PO DAILY #30 tabs 02/15/24 losartan 25 mg tablet 25 mg PO DAILY #30 tabs 02/15/24 Allergies Allergies peanut (peanuts) Allergy (Intermediate, Verified 02/13/24 14:47) Itching chocolate flavor Adverse Reaction (Verified 02/13/24 14:47) Other Sleep Disorder Evaluation Hx of Sleep Apnea: No Do you snore loudly (louder than talking or can be heard through closed doors)?: No Do you often feel tired/ fatigued/ sleepy during daytime?: No Has anyone observed you stop breathing during sleep?: No History of Hypertension (for STOP score): Yes STOP Results: Negative Advanced Directives Advanced Directives Power of Agronomy Supervisor: Yes Living Will: Yes Advance Directives Information Provided: No Advance Directives on File: No DNR Order?:: No Past Medical History Covid-19 Screening Physicial Symptoms Other Clinical Concerns Exposure Risk Pertinent Comorbidities 65 years or older:: Yes Has a serious heart condition:: Yes Diabetic:: Yes Past Medical Illness Past Medical History (Updated 02/23/24 @ 00:03 by Background Daemon) Diabetes E11.9 Tinea corporis B35.4 Seroma of breast N64.89 Cancer of left male breast C50.922 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 ER positive greater than 95%, MT negative, HER2 negative by FISH. Biopsy of left axillary node was negative. PET CT scan on 01/23/2023 reviewed, shows L breast hypermetabolic mass 18mm, n o lymph nodes or metastatic disease. CT chest 01/19/2023 reviewed, shows no metastatic disease, L breast bigger than R. Status post left mastectomy and left axillary dissection on 02/19/2023. Tumor size 2.5 cm, margins negative, grade 3, lymph nodes 1 out of 12 positive. Anatomic stage pT2 pN1a. Prognostic stage IB. Finished adjuvant Radiation therapy on 05/08/2023. Started Adjuvant Tamoxifen on 06/04/2023. ctDNA on 06/04/2023 was 0. Comes for follow up. Feels well, tolerating Tamoxifen. Left breast lump N63.20 Arthritis M19.90 Gout M10.9 HTN (hypertension) I10 Wears glasses Z97.3 Cancer C80.1 BREAST Hyperthyroidism E05.90 ON MED Diabetes E11.9 Use of cane as ambulatory aid Z99.89 GERD (gastroesophageal reflux disease) K21.9 Edema R60.9 LOWER EXT. ON MED History of echocardiogram Z92.89 11/01/21 History of stress test Z92.89 12/11/22 Seasonal allergies J30.2 Elevated blood pressure reading R03.0 Impaired fasting blood sugar R73.01 Breast cancer in male C50.929 Past Surgical History Past Surgical History (Updated 02/23/24 @ 00:03 by Background Daemon) Stented coronary artery (~02/14/24) Z95.5 PTCA/LAUREEN distal Mid LAD using [place] 2.75x22 mm History of lymph node dissection of left axilla Z98.890 S/P left mastectomy Z90.12 02/19/2023 History of removal of cyst Z98.890 SUBACIOUS CYST REMOVAL MID CHEST History of hand surgery Z98.890 CYST REMOVAL History of elbow surgery Z98.890 History of tonsillectomy Z90.89 Family History Summary Family History Father CVA (cerebral vascular accident) Myocardial infarction Mother Lung cancer Social History Smoking History Smoking Status: Former smoker Years Smokin Packs Smoked per Day: 2 (stopped 30 years ago) Hx Tobacco Use: Yes Alcohol Use Alcohol Usage: Yes Substance Abuse Hx Substance Use: No Occupation Occupation (List type of work in comments):: Retired Hobbies, Recreation, Social Activities Hobbies: Other (games, sports) Recreational Activities: I am able to engage in all my recreational activities Social Environment Status Marital Status: Current Living Arrangements Living Environment:: Family Children How many children do you have?: 2 Do any of your children live nearby?: Yes Safety Do you feel safe in your surroundings?: Yes Assistance Do you need any assistance at home?: no Review of Systems Review of Systems Hints Review of Present Symptoms: Reports Shortness of Breath at Rest, Shortness of Breath with Exertion, Dizziness/Lightheadedness, Fatigue, Appetite - Special Diet and Sleep - Normal; Denies PVD, Operative Discomfort, Angina, Wound Healing, Heart Arrhythmia/Irregularities, Appetite - Normal or Sexual Changes Pain Is Patient Pain Free?: No Pain Location: back Pain Level: 10 Risk Factor Assessment Chief Complaint Chief Complaint: PCI with stent Vital Signs Pulse Ox: 99 Pulse Pulse Rate: 53 Pulse Rhythm: Regular Hypertension How long have you been treated?: pt is unsure Blood Pressure Sitting - Right Arm: 138/70 Stress Stress: - (financial ) Diabetes Diabetic History: Type II Nutrition Referral for Diabetes: Yes Obesity Height: 6 ft 4 in Weight:: 286 lb Weight in Pounds: 286.0 lbs Body Mass Index (BMI): 34.8 Physical Inactivity Physical Inactivity: Reg Exercise 30 min/day Risk Stratification Risk Guidelines: Moderate Risk: Risk Factor for Smoking, Risk Factor for Dyslipidemia, Risk Factor for Diabetes, Risk Factor for Sedentary Lifestyle and Risk Factor for Depression and Highest Risk: Risk Factor for Obesity and Risk Factor for Hypertension For Smoking Smoking Risk Guidelines For Dyslipidemia Dyslipidemia Risk Guidelines For Diabetes Mellitus Diabetes Risk Guidelines For Obesity/Overweight Obesity/Overweight Risk Guidelines For Hypertension Hypertension Risk Guidelines For Sedentary Lifestyle Sedentary Lifestyle Risk Guidelines For Depression Depression Risk Guidelines Family History Family History Father CVA (cerebral vascular accident) Myocardial infarction Mother Lung cancer Motivation Motivation to Participate On a scale of 1 to 10, how prepared are you to commit to attending program?: 7 What do you see as barriers to successfully being able to complete the program?: nothing What do you see as the benefits of succesfully completing the program? In other words, what do you hope to get out of participating in the program?: improve energy Are there issues you are dealing with that will interfere with completing the program?: no Do you have a spouse or signficant other, family or friends who will help support you to complete the program?: yes
--- NOTE | 2024-02-29 08:05 | PCM.CR.ITP ---
Diagnosis General Information Admitting Diagnosis: PCI with stent Personal Learning Style:: Audio/Visual Stage of change r/t lifestyle modifications:: Contemplation Gave educational material for:: Treating Heart Disease, How The Heart Works, What it means to have Heart Disease, How Coronary Artery Disease is Diagnosed, Heart Procedures, What Heart Medications Do, Risk Factors & Modifications, Living an Active Life, Nutrition, Emotions & Heart Disease, Stress Management & Relaxation and Sleep Disorders & Heart Disease Education/Goals Cardiac Rehabilitation Goals Personal Goals: Initial Assessment: Improve management of stress and emotions, Improve energy level, Improve muscle strength and endurance, Improve diet and eating habits (eat healthier) and Control risk factors (learn risk factor modification) Scale for measuring improvement of personal goals Diagnosis & Disease Process Outcomes/Goals: Pt IDs own risk factors & lifestyle modifications by Session 10, Verbalizes symptoms of angina & response by session 3., Pt independently manages and Other Additional Outcomes/Goals: Plan/Interventions: Assist Pt to ID & engage in lifestyle modification to reduce CVD risk, Instruct on individual risk factors, Review symptoms of angina & emergency actions, Review secondary diagnosis & identify educational needs. and Other see comment 30 day Reassessments:: Not Met 30 day Reassessments:: Not Met 30 day Reassessments:: Not Met 30 day Reassessments:: Not Met Final Reassessments:: Not Met Safety Referral to Physical Therapy: No Referral to [facility] Case Management: No Fall Risk Assessed:: Yes Assistive Devices:: Cane and Wheelchair Exercise - Initial Assessment Visit Date of Eval: 02/29/24 (initial eval ) Mets: Pre-: >3 METS for 30 minutes by discharge, >5 METS for 30 minutes by discharge, >7 METS for 30 minutes by discharge and Unable to meet goal due to: (see comment below) Physician Prescribed Exercise Modalities: Treadmill, Rower, Schwinn Airdyne AD-7, SciFit Stepper, SciFit Pro-II Ergometer and SciFit Lateral Medical Record Coder Frequency: 2x/week for 18 weeks [36 sessions] and 3x/week for 12 weeks [36 sessions] Intensity: 60-80% of age predicted maximum heart rate reserve Duration: 30 - 45 minutes Current METSs:: 3 Target Heart Rate:: 86-108 EKG Type: SB with nonspecific T wave changes Outcomes & Goals Goals:: Verbalizes understanding of THR, RPE & goal METS by session 6, Documents in home exercise log/reports 30 min aerobic 5 day/wk by DC, Demonstrates accurate pulse taking by DC and Other additional outcome/goals: see below Intervention & Plan Exercise Program Goals: Instruct on personal THR & RPE, Instruct on MET level & personal MET goal, Show patient to take own pulse /validate performance until accurate, Instruct on home exercise and Other additional plan/int Physical Activity Home Exercise Physical Activity - Home Exercise: Safe Exercise, Warm-up, Self-monitoring, Cool-Down, Home Exercise > 30 min Daily and Sitting Time <3 hours/daily Outcomes & Goals Outcomes/Goals: Demonstrates correct Warm-up/exercise Cool-Down (S3) if = 2.5 METs, Verbalizes symptoms of exercise intolerance by Session 3 (S3), Demonstrate safe equipment use (S3) & follows exercise prescrition (6) and Other: See below Intervention & Plan Plan/Intervention: Instruct warm-up & cool-down if exercising at > 2 METs, Instruct on symptoms of exercise intolerance & actions to take, Instruct & monitor on saf, Assess intial functional capacity & safety risk and Other See below Nutrition - Initial Assessment Program Goals Nutrition Program Goals Patient has diagnosis of Hyperlipidemia (ICD E78)?: No Visit Date of Eval: 02/29/24 (initial eval ) Cholesterol/Lipids (Other Core Measures) Determine presence & major risk factors that modify LDL goal: Cigarette smoking, Hypertension or hypertensive medication, Low HDL cholesterol <40 mg/dL*, Family history of premature CHD in Male < 55 years: female <65 yearsFa and Age men > 45 years; women >/= 55 years Outcomes/Goals: Pt IDs own risk factors & lifestyle modifications by Session 10, Verbalizes symptoms of angina & response by session 3., Pt independently manages and Other Additional Outcomes/Goals: Intervention/Plan: Advocate for lipid panel cholesterol medication if applicable, Instruct on personal lipid levels & lipid goals/NCEP guidelines, Instruct on cholesterol and Other additional plan/int Referral to dietitian:: Yes Diabetes (Other Core Measures) Diabetes Type: Diagnosis Type II ICD-10 E11 Insulin dependent injection/pump?: No Non-Insulin Dependent?: Yes Do you monitor your blood sugar at home?: Yes Referral to Diabetic Clinic:: No Outcomes/Goals:: Able to state symptoms of, Able to state, Able to state and Other additional Intervention/Plan:: Instruct on, Refer to, Instruct on and Other Weight Mgt (Other Care) Height: 6 ft 4 in Weight:: 286 lb BMI: 34.8 Diagnosis Overweight/Obesity BMI> 30% ICD-10 E66: Yes Diagnosis High BMI/Morbid Obesity BMI> 35% ICD-10 Z68: No Outcomes/Goals: Pt sets, maintains & shows weight loss goal & trend during rehab and Other additional outcomes/goals Intervention/Plan: Instruct on ideal BMI & set weight loss goal w/patient, Assist pt to ID & incorporate diet changes for weight loss by S9, Refer to Structured Weight Loss program as appropriate, Encourage goal of using 250-300dcal per session for weight loss and Other additional plan/interventions Healthy Eating Habits Will attend diet classes:: Yes Outcomes/Goals:: Consume diet rich in vegs,fruits,whole grain/high fiber,fish,lean meat, Limit sat/trans fats,cholesterol & added salts & sugars and Other additional outcome/goals: Intervention/Plan:: Assess current eating habits and Other Additional plan/interventions Education Gave educational materials for:: Signs & symptoms of hypoglycemia, Signs & symptoms of hyperglycemia, Relate diabetes to coronary artery disease and Healthy eating Core - Initial Assessment Visit Date of Eval: 02/29/24 (initial eval ) Medication Compliance Preventative Medication(s):: Aspirin, Clopidogrel/P2Y12 inhibit and Statin/lipid H/O mental health issues: depression, anxiety, or addiction?: No Doesn?t believe in the benefits of treatment?: No Believes medications are unnecessary or harmful?: No Has a concern about medication side effects?: No Expresses concern over the cost of medications?: No Outcomes/Goals: Verbalizes medications,desired effect & common side effects @ DC, Pt self-reports following medication regimen, Keeps card in wallet w/medications listed by DC and Other additional outcome/goals: Interventions/plans: Instruct on medication effects & side effects, Review medication list w/patient every two weeks, Instruct importance of taking meds as ordered & assist problem solving and Other additional Tobacco Use Tobacco Use: Non-smoker How long ago did you quit using tobacco products?: Greater than or equal to 6 months ago Years Smokin Do you use smokeless tobacco?: No Outcomes/Goals: Smoking cessation achieved or maintained by discharge, Identify aids/strategies for achieving smoking cessation by session 6 and Other additional outcome/goals Interventions/plan: Instruct on effects of smoking & provide smoking cessation resource, Assist pt to set quit date & provide encouragement, Assist pt to develop strategies to achieve/maintain quit date, Assist pt w/nicotine replacement & medication for cessation success and Other additional plan/interventions Hypertension Hypertension Diagnosis:: Hypertension ICD-10 I10 Resting Blood Pressure:: 138/76 [place] [employer] Hypertension Guidelines Outcomes/Goals: Able to verbalize/achieve optimal blood pressure <130/80, Incorporates diet changes & exercise for blood pressure control by DC and Other additional outcomes/goals Interventions/plan: Instruct on optimal blood pressure, hypertension & medications, Instruct on effects of sodium, alcohol, stress, exercise &hypertension and Other additional plan/interventions Tobacco Cessation Referral Smoking Cessation Referral:: No Individual Education/Counseling:: No Education Schedule Given:: Yes Psychosocial - Initial Assess VIsit Date of Eval: 02/29/24 (initial eval ) History of previous Mental disease:: No Target Goals Target Goals Outcomes/Goals: See list Psychosocial Outcomes/Goals:: ID's personal stressors & 2 strategies to manage stress by discharge and Other Additional outcome/goals: Intervention/Plan: See List Interventions/Plan:: Assess stressors,coping strategies & signs of derpression on admission, Instruct/assist pt to develop coping & personal stress Mgt strategies, Refer to Behavioral Health if appropriate, Refer to Physician if appropriate, Instruct patient to recognize signs & symptoms of depression, Instruct patient to recog and Other additional plan/intervention Patient Health Questionnaire PHQ-9 Screening Initial Assessment: 1. Little interest or pleasure in doing things: Not at all 2. Feeling down, depressed, or hopeless: Several days 3. Trouble falling or staying asleep, or sleeping too much: Not at all 4. Feeling tired or having little energy: Nearly every day 5. Poor appetite or overeating: Several days 6. Feeling bad about yourself -- or that you are a failure or have let yourself or your family down: Not at all 7. Trouble concentrating on things, such as reading the newspaper or watching television: Not at all 8. Moving or speaking so slowly that other people could have noticed. Or the opposite - being so fidgety or restless that you have been moving around a lot more than usual: Nearly every day 9. Thoughts that you would be better off , or of hurting yourself in some way: Not at all How difficult have these problems made it for you to do your work, take care of things at home, or get along with other people?: Extremely difficult Total Score: 8 GABRIEL-Q SV Test Statements CAD is a disease of the arteries in the heart: False Examples of risk factors for heart disease: True Angina is chest pain or discomfort: True The benefits of resistance training include: I Don't Know Eating more meat and dairy products: I Don't Know Anti-platelet medications such as aspirin are important: True The only effective way to manage stress: False An exercise warm-up slowly increases heart rate: I Don't Know Prepared, processed foods usually have high sodium: True Depression is common after a heart attack: I Don't Know The statin medications lower cholesterol: True To control blood pressure, lower the amount of sodium: True If someone gets chest discomfort during walking: False Transfats are partially hydrogenated vegetable oils: True Sleep apnea that is not treated increases the risk: I Don't Know To control cholesterol, one should become a vegetarian: False Someone knows if he/she is exercising at the right level: I Don't Know Diabetes cannot be prevented with exercise & health eating: False Stress is a large risk for heart attack: True A diet that can help lower blood pressure is rich in: True Total Score Total Correct Responses: 14 Self-Efficacy 6-Item Scale Initial Assessment: We would like to know how confident you are in doing certain activities. Please select your confidence level for: Fatigue Select Number: 1 Physical Discomfort or Pain Select Number: 1 Emotional Distress Select Number: 5 Other Symptoms or Health Problems Select Number: 1 Different Tasks and Activities Select Number: 1 Medication Select Number: 1 Total Score:: 1 Nutrition Survey Nutrition Survey Instructions Scoring Instructions Nutrition Survey Initial: Have you lost >10 lbs over the past 2 months without trying?: No Are you following a special diet at home for diabetes, low fat, or low salt?: No Are you interested in meeting with a dietitian for help understanding your diet?: Yes Do you eat less than 3 meals a day?: Yes Do you eat fatty meats (rosas, sausage, ribs, etc), fried foods, desserts, large amounts of salad dressings, margarine, butter, or cheese most days?: Yes Do you have food allergies? [Enter types in comment field]: Yes Do you eat in restaurants more than 3 times a week?: No Do you season food with salt, seasoning salt, or garlic salt?: No Do you used canned, boxed, frozen meals, or soups, seasoning packets?: Yes Total Score:: 5 Exercise - 30-day Assessment Physician Prescribed Exercise Modalities: Treadmill, Rower, Schwinn Airdyne AD-7, SciFit Stepper, SciFit Pro-II Ergometer and SciFit Lateral Medical Record Coder Exercise - 60-day Assessment Physician Prescribed Exercise Modalities: Treadmill, Rower, Schwinn Airdyne AD-7, SciFit Stepper, SciFit Pro-II Ergometer and SciFit Lateral Medical Record Coder Exercise - 90-day Assessment Physician Prescribed Exercise Modalities: Treadmill, Rower, Schwinn Airdyne AD-7, SciFit Stepper, SciFit Pro-II Ergometer and SciFit Lateral Medical Record Coder Exercise - Final/Discharge Physician Prescribed Exercise Modalities: Treadmill, Rower, Schwinn Airdyne AD-7, SciFit Stepper, SciFit Pro-II Ergometer and SciFit Lateral Medical Record Coder Frequency: 2x/week for 18 weeks [36 sessions] and 3x/week for 12 weeks [36 sessions] Intensity: 60-80% of age predicted maximum heart rate reserve Current METSs:: 3 Target Heart Rate:: 86-108 Nutrition - 30-Day Assessment Weight Mgt (Other Care) Height: 6 ft 4 in Weight:: 286 lb BMI: 34.8 Nutrition - 60-Day Assessment Weight Mgt (Other Care) Height: 6 ft 4 in Weight:: 286 lb BMI: 34.8 Core - 30-Day Assessment Tobacco Use Years Smokin Core - Final Assessment Hypertension Resting Blood Pressure:: 138/76 [place] [employer] Hypertension Guidelines Core - 60-Day Assessment Hypertension Resting Blood Pressure:: 138/76 [place] [employer] Hypertension Guidelines Psychosocial - 30-Day Assess Target Goals Target Goals Psychosocial - 60-Day Assess Target Goals Target Goals Psychosocial - 90-Day Assess Target Goals Target Goals Psychosocial - Final Assessmen Target Goals Target Goals Nutrition - 90-Day Assessment Weight Mgt (Other Care) Height: 6 ft 4 in Weight:: 286 lb BMI: 34.8 Nutrition - Final Assessment Program Goals Patient has diagnosis of Hyperlipidemia (ICD E78)?: No Weight Mgt (Other Care) Height: 6 ft 4 in Weight:: 286 lb BMI: 34.8
[2024-02-29 08:28] VITALS: BP 138/70; PULSE 53; O2SAT 99; BMI 34.8
[2024-02-29 09:02] VITALS: BP 138/76; BMI 34.8
== END | disposition home or self-care (01) ==
LOC: CR 07:52
PROVIDERS: PCP Family Medicine; Referring Provider Internal Medicine Cardiovascular Disease; Visit Provider Internal Medicine Cardiovascular Disease
DX: Z95.5 Presence of coronary angioplasty implant and graft (principal); I21.4 Non-ST elevation (NSTEMI) myocardial infarction; R07.9 Chest pain, unspecified

== ENCOUNTER → 2024-03-05 | Outpatient (CLI) | payer MEDICARE, OTHER, SELFPAY ==
[2024-02-29 09:02] VITALS: BMI 34.8
== END | disposition home or self-care (01) ==
LOC: PSN 08:11
PROVIDERS: PCP Family Medicine; Referring Provider Internal Medicine Cardiovascular Disease; Visit Provider Internal Medicine Cardiovascular Disease
DX: R00.1 Bradycardia, unspecified (principal)
CPT/HCPCS: 93225; 93226

== ENCOUNTER → 2024-03-28 | Outpatient (CLI) | payer MEDICARE, OTHER, SELFPAY ==
[2024-03-27 10:18] VITALS: BMI 34.8
[2024-03-28 15:10] LABS: Absolute Lymphocyte Count 0.98 X10^3/uL (0.83-4.51); Absolute Neutrophil Count 8.2 X10^3/uL (2.0-7.7); Basophil# 0.03 X10^3/uL; Basophil% 0.3 % (0-1); Eosinophil# 0.08 X10^3/uL; Eosinophils% 0.8 % (0-5); Hemoglobin 14.1 g/dL (13.0-16.5); Lymphocyte # 0.98 X10^3/ul (0.83-4.51); Lymphocyte % 9.7 % (19-41); Mean Corp Hgb Conc 33.6 g/dL (32-36); Mean Corpuscular Hgb 31.2 pg (27.0-32.0); Mean Corpuscular Volume 92.9 fL (80-94); Mean Platelet Vol. 10.6 fl (6.2-12.0); Monocyte# 0.79 X10^3/uL; Monocyte% 7.8 % (0-10); NRBC Flagged by Analyzer 0 % (0-5); Neutrophil # 8.21 X10^3/uL (2.7-7.7); Neutrophil % 80.8 % (47-70); Platelet Count 188 K/mm3 (150-450); RBC Distribution Width CV 13.8 % (11.6-14.6); RBC Distribution Width SD 46.8 fl (35.1-43.9); Red Blood Count 4.52 M/mm3 (4.6-6.2); White Blood Count 10.2 K/mm3 (4.4-11.0)
[2024-03-28 15:20] LABS: ALB/GLOB Ratio 0.7 RATIO (0.9-2.4); AST(SGOT) 33 U/L (15-37); Alanine Aminotransfer ALT/SGPT 59 U/L (16-61); Albumin, Serum 2.9 g/dL (3.2-5.0); Alkaline Phosphatase 65 U/L (45-117); Anion Gap 9 (5-15); BUN 28 mg/dL (7-18); BUN/Creat Ratio 14.2 RATIO (10-20); Chloride 109 mmol/L (98-107); Creatinine, Serum 1.97 mg/dL (0.70-1.30); EST Glomerular Filtration Rate 35 mL/min (>60); Est Glom Filt Rate - Afr Amer 43 mL/min (>60); Globulin 4.3 g/dL (2.2-4.2); Glucose 136 mg/dL (74-106); Potassium 4.5 mmol/L (3.5-5.1); Protein, Total 7.2 g/dL (6.4-8.2); Sodium Level 137 mmol/L (136-145)
[2024-03-30 08:08] LABS: Prealbumin 14 mg/dL (9-32)
== END | disposition home or self-care (01) ==
LOC: MFPLAB 12:04
PROVIDERS: PCP Family Medicine; Visit Provider Family Medicine
DX: R53.83 Other fatigue (principal); I10 Essential (primary) hypertension; Z12.5 Encounter for screening for malignant neoplasm of prostate
CPT/HCPCS: 36415; 80053; 84134; 84153; 85025; G0103

== ENCOUNTER 2024-04-04 10:15 | Outpatient (RCR) | payer MEDICARE, OTHER, SELFPAY ==
[2024-02-29 09:02] VITALS: BMI 34.8
--- NOTE | 2024-03-27 09:39 | CR.ITP_ITS ---
Exercise - Initial Assessment Visit Session #:: 1 Physician Prescribed Exercise Modalities: SciFit Stepper and SciFit Pro-II Ergometer Nutrition - Initial Assessment Weight Mgt (Other Care) Height: 6 ft 4 in Weight:: 286 lb BMI: 34.8 BMI (Report if calculated above): 34.8 Psychosocial - Initial Assess Target Goals Target Goals Patient Health Questionnaire PHQ-9 Screening 30-Day Re-eval Assessment: 1. Little interest or pleasure in doing things: Not at all 2. Feeling down, depressed, or hopeless: Several days 3. Trouble falling or staying asleep, or sleeping too much: Not at all 4. Feeling tired or having little energy: Nearly every day 5. Poor appetite or overeating: Several days 6. Feeling bad about yourself -- or that you are a failure or have let y ourself or your family down: Not at all 7. Trouble concentrating on things, such as reading the newspaper or watching television: Not at all 8. Moving or speaking so slowly that other people could have noticed. Or the opposite - being so fidgety or restless that you have been moving around a lot more than usual: Nearly every day 9. Thoughts that you would be better off , or of hurting yourself in some way: Not at all How difficult have these problems made it for you to do your work, take care of things at home, or get along with other people?: Extremely difficult Total Score: 8 Self-Efficacy 6-Item Scale 30-Day Re-eval Assessment: We would like to know how confident you are in doing certain activities. Please select your confidence level for: Fatigue Select Number: 1 Physical Discomfort or Pain Select Number: 1 Emotional Distress Select Number: 5 Other Symptoms or Health Problems Select Number: 1 Different Tasks and Activities Select Number: 1 Medication Select Number: 1 Total Score:: 1 Nutrition Survey Nutrition Survey Instructions Scoring Instructions Exercise - 30-day Assessment Visit Date of Eval: 03/27/24 Session #:: 1 Physician Prescribed Exercise Modalities: SciFit Stepper and SciFit Pro-II Ergometer Frequency: 3x/week for 12 weeks [36 sessions] Intensity: 60-80% of age predicted maximum heart rate reserve Duration: 30 - 45 minutes (Pt only able to complete approx 20 minutes of exercise with multiple rests due to severe deconditioning and physical limitations) Current METSs:: 3 Target Heart Rate:: 86-108 Current RPE:: 14 Maximum Excercise HR:: 78 Resting Blood Pressure: 118/60 Maximum Exercise Blood Pressure: 118/50 EKG Type: SB to NSR with rare PACs Current Physical Activity or Exercising minutes: 20 Outcomes & Goals Goals:: Verbalizes understanding of THR, RPE & goal METS by session 6, Documents in home exercise log/reports 30 min aerobic 5 day/wk by DC, Demonstrates accurate pulse taking by DC and Other additional outcome/goals: see below Comment:: Pt verbalizes understanding of RPE and METS goals Intervention & Plan Exercise Program Goals: Instruct on personal THR & RPE, Instruct on MET level & personal MET goal, Show patient to take own pulse /validate performance until accurate, Instruct on home exercise and Other additional plan/int Comment:: Pt verbalizes understanding of RPE scale and safety guidelines of equipment 30-day Reassessments 30 day Reassessments:: Not Met Reassessment Notes & Comments:: Pt delay in starting per pt request, only one session completed, pt verbalized understanding of RPE rating and safety of equipment use Physical Activity Home Exercise Physical Activity - Home Exercise: Safe Exercise, Warm-up, Self-monitoring, Cool-Down, Home Exercise > 30 min Daily and Sitting Time <3 hours/daily Outcomes & Goals Outcomes/Goals: Demonstrates correct Warm-up/exercise Cool-Down (S3) if = 2.5 METs, Verbalizes symptoms of exercise intolerance by Session 3 (S3), Demonstrate safe equipment use (S3) & follows exercise prescrition (6) and Other: See below Comment: Pt able to verbalize s/s of exercise intoleerance and takes rest breaks Intervention & Plan Plan/Intervention: Instruct warm-up & cool-down if exercising at > 2 METs, Instruct on symptoms of exercise intolerance & actions to take, Instruct & monitor on saf, Assess intial functional capacity & safety risk and Other See below Comment: Instructed pt on importance of warm up/cool down when exercising 30-day Reassessments 30 day Reassessments:: Not Met Reassessment Notes & Comments:: Pt delayed in starting, has completed only one session Exercise - 60-day Assessment Physician Prescribed Exercise Modalities: SciFit Stepper and SciFit Pro-II Ergometer Exercise - 90-day Assessment Physician Prescribed Exercise Modalities: SciFit Stepper and SciFit Pro-II Ergometer Exercise - Final/Discharge Physician Prescribed Exercise Modalities: SciFit Stepper and [email or web address] Pro-II Ergometer Nutrition - 30-Day Assessment Program Goals Nutrition Program Goals Patient has diagnosis of Hyperlipidemia (ICD E78)?: No Visit Date of Eval: 03/27/24 Session #:: 1 Cholesterol/Lipids (Other Core Measures) Triglycerides (mg/dL): 170 Total Cholesterol (mg/dL): 121 LDL Cholesterol (mg/dL): 50 HDL Cholesterol (mg/dL): 37 Lipid Medication: rosuvastatin 5 mg Determine presence & major risk factors that modify LDL goal: Hypertension or hypertensive medication, Low HDL cholesterol <40 mg/dL* and Family history of premature CHD in Male < 55 years: female <65 yearsFa Outcomes/Goals: Pt IDs own risk factors & lifestyle modifications by Session 10, Verbalizes symptoms of angina & response by session 3., Pt independently manages and Other Additional Outcomes/Goals: Additional outcomes/goals: Pt educated on s/s of angina and response Intervention/Plan: Instruct on personal lipid levels & lipid goals/NCEP guidelines and Instruct on cholesterol Referral to dietitian:: Yes 30-day Reassessments:: Not Met Reassessment Notes & Comments:: Pt delayed starting, only one session completed Diabetes (Other Core Measures) Diabetes Type: Diagnosis Type II ICD-10 E11 Hgb A1C (4.2 -6.3): 5.2 Insulin dependent injection/pump?: No Non-Insulin Dependent?: Yes Do you monitor your blood sugar at home?: Yes Referral to Diabetic Clinic:: No Outcomes/Goals:: Able to state symptoms of, Able to state and Able to state Intervention/Plan:: Instruct on, Refer to and Instruct on 30-day Reassessments:: Progressing Reassessment Notes & Comments:: Pt able to state s/s of hypoglycemia, able to monitor blood sugar at home Weight Mgt (Other Care) Height: 6 ft 4 in Weight:: 286 lb BMI: 34.8 BMI (Report if calculated above): 34.8 Diagnosis Overweight/Obesity BMI> 30% ICD-10 E66: Yes Diagnosis High BMI/Morbid Obesity BMI> 35% ICD-10 Z68: No Outcomes/Goals: Pt sets, maintains & shows weight loss goal & trend during rehab Intervention/Plan: Instruct on ideal BMI & set weight loss goal w/patient, Assist pt to ID & incorporate diet changes for weight loss by S9, Refer to Structured Weight Loss program as appropriate, Encourage goal of using 250- 300dcal per session for weight loss and Other additional plan/interventions 30 day Reassessments:: Not Met Reassessment Notes & Comments:: Pt delayed start, has only attended 1 session, attending nutrition class Healthy Eating Habits Will attend diet classes:: Yes Outcomes/Goals:: Consume diet rich in vegs,fruits,whole grain/high fiber,fish,lean meat and Limit sat/trans fats,cholesterol & added salts & sugars Intervention/Plan:: Assess current eating habits 30-day Reassessments:: Not Met Reassessment Notes & Comments:: Pt attending nutrition classes Education Gave educational materials for:: Signs & symptoms of hypoglycemia, Signs & symptoms of hyperglycemia, Relate diabetes to coronary artery disease and Healthy eating Nutrition - 60-Day Assessment Weight Mgt (Other Care) Height: 6 ft 4 in Weight:: 286 lb BMI: 34.8 BMI (Report if calculated above): 34.8 Core - 30-Day Assessment Visit Date of Eval: 03/27/24 Session #:: 1 Medication Compliance Preventative Medication(s):: Aspirin, Clopidogrel/P2Y12 inhibit and Statin/lipid H/O mental health issues: depression, anxiety, or addiction?: No Doesn?t believe in the benefits of treatment?: No Believes medications are unnecessary or harmful?: No Has a concern about medication side effects?: No Expresses concern over the cost of medications?: No Outcomes/Goals: Verbalizes medications,desired effect & common side effects @ DC, Pt self-reports following medication regimen and Keeps card in wallet w/medications listed by DC Interventions/plans: Instruct on medication effects & side effects, Review medication list w/patient every two weeks and Instruct importance of taking meds as ordered & assist problem solving 30-day Reassessments:: Progressing Reassessment Notes & Comments:: Pt takes home medications as instructed Tobacco Use Tobacco Use: Non-smoker How long ago did you quit using tobacco products?: Greater than or equal to 6 months ago Do you use smokeless tobacco?: No Outcomes/Goals: Smoking cessation achieved or maintained by discharge and Identify aids/strategies for achieving smoking cessation by session 6 Interventions/plan: Instruct on effects of smoking & provide smoking cessation resource, Assist pt to set quit date & provide encouragement, Assist pt to develop strategies to achieve/maintain quit date and Assist pt w/nicotine replacement & medication for cessation success 30-day Reassessments:: Met Hypertension Hypertension Diagnosis:: Hypertension ICD-10 I10 Resting Blood Pressure:: 118/60 [place] [employer] Hypertension Guidelines Peak Exercise Blood Pressure:: 118/50 Outcomes/Goals: Able to verbalize/achieve optimal blood pressure <130/80 and Incorporates diet changes & exercise for blood pressure control by DC Interventions/plan: Instruct on optimal blood pressure, hypertension & medications and Instruct on effects of sodium, alcohol, stress, exercise &hypertension 30 day Reassessments:: Progressing Reassessment Notes & Comments:: Pt taking home medications as prescribed and has optimal resting BP Tobacco Cessation Referral Smoking Cessation Referral:: No Individual Education/Counseling:: No Education Schedule Given:: Yes Psychosocial - 30-Day Assess VIsit Date of Eval: 03/27/24 Session #:: 1 History of previous Mental disease:: No Target Goals Target Goals Psychosocial Test Tool Used:: PHQ-9 Questionnaire phq-9 Severity Outcomes/Goals: See list Psychosocial Outcomes/Goals:: ID's personal stressors & 2 strategies to manage stress by discharge and Other Additional outcome/goals: Intervention/Plan: See List Interventions/Plan:: Assess stressors,coping strategies & signs of derpression on admission, Instruct/assist pt to develop coping & personal stress Mgt strategies, Refer to Behavioral Health if appropriate, Refer to Physician if appropriate, Instruct patient to recognize signs & symptoms of depression, Instruct patient to recog and Other additional plan/intervention 30-day Reassessments: 30 day Reassessments:: Met Psychosocial - 60-Day Assess Target Goals Target Goals Outcomes/Goals: See list Psychosocial Outcomes/Goals:: ID's personal stressors & 2 strategies to manage stress by discharge and Other Additional outcome/goals: Psychosocial - 90-Day Assess Target Goals Target Goals Psychosocial - Final Assessmen Target Goals Target Goals Nutrition - 90-Day Assessment Weight Mgt (Other Care) Height: 6 ft 4 in Weight:: 286 lb BMI: 34.8 BMI (Report if calculated above): 34.8 Nutrition - Final Assessment Weight Mgt (Other Care) Height: 6 ft 4 in Weight:: 286 lb BMI: 34.8 BMI (Report if calculated above): 34.8
[2024-03-27 09:43] VITALS: BP 118/60
[2024-03-27 10:14] VITALS: BP 118/60; BMI 34.8
[2024-03-27 10:18] VITALS: BMI 34.8
== END 2024-04-05 23:59 ==
LOC: CR 10:15
PROVIDERS: PCP Family Medicine; Referring Provider Internal Medicine Cardiovascular Disease; Visit Provider Internal Medicine Cardiovascular Disease
DX: Z95.5 Presence of coronary angioplasty implant and graft (principal); I21.4 Non-ST elevation (NSTEMI) myocardial infarction; R07.9 Chest pain, unspecified
CPT/HCPCS: 93798

== ENCOUNTER 2024-05-05 10:15 | Outpatient (RCR) | payer MEDICARE, OTHER, SELFPAY ==
[2024-03-27 10:18] VITALS: BMI 34.8
[2024-04-06 00:39] VITALS: BP 118/60
--- NOTE | 2024-04-25 07:11 | CR.ITP_ITS ---
Exercise - Initial Assessment Physician Prescribed Exercise Modalities: SciFit Stepper Nutrition - Initial Assessment Weight Mgt (Other Care) Height: 6 ft 4 in Weight:: 269 lb 8 oz BMI: 32.8 Psychosocial - Initial Assess Target Goals Target Goals Referral to Behavioral Health PS - Interventions: Yes: Referral to Behavioral Health if PHQ-9 score >9:, Yes: Referral to [facility], Yes: Referral to Physician if PHQ-9 if score is 5-9: and Yes: Attend Stress Management Classes Patient Health Questionnaire PHQ-9 Screening 60-Day Re-eval Assessment: 1. Little interest or pleasure in doing things: Not at all 2. Feeling down, depressed, or hopeless: Several days 3. Trouble falling or staying asleep, or sleeping too much: Not at all 4. Feeling tired or having little energy: Nearly every day 5. Poor appetite or overeating: Several days 6. Feeling bad about yourself -- or that you are a failure or have let yourself or your family down: Not at all 7. Trouble concentrating on things, such as reading the newspaper or watching television: Not at all 8. Moving or speaking so slowly that other people could have noticed. Or the opposite - being so fidgety or restless that you have been moving around a lot more than usual: Nearly every day 9. Thoughts that you would be better off , or of hurting yourself in some way: Not at all How difficult have these problems made it for you to do your work, take care of things at home, or get along with other people?: Extremely difficult Total Score: 8 Self-Efficacy 6-Item Scale 60-Day Re-eval Assessment: We would like to know how confident you are in doing certain activities. Please select your confidence level for: Fatigue Select Number: 1 Physical Discomfort or Pain Select Number: 1 Emotional Distress Select Number: 5 Other Symptoms or Health Problems Select Number: 1 Different Tasks and Activities Select Number: 1 Medication Select Number: 1 Total Score:: 1 Nutrition Survey Nutrition Survey Instructions Scoring Instructions Exercise - 30-day Assessment Physician Prescribed Exercise Modalities: SciFit Stepper Exercise - 60-day Assessment Visit Date of Eval: 04/25/24 Session #:: 11 Physician Prescribed Exercise Modalities: SciFit Stepper Frequency: 3x/week for 12 weeks [36 sessions] Intensity: 60-80% of age predicted maximum heart rate reserve Duration: 30 - 45 minutes Current METSs:: 3.1 Target Heart Rate:: 86-108 Current RPE:: 11 Maximum Excercise HR:: 73 Resting Blood Pressure: 148/52 Maximum Exercise Blood Pressure: 170/70 EKG Type: SB to SR with rare PAC's Outcomes & Goals Goals:: Verbalizes understanding of THR, RPE & goal METS by session 6, Documents in home exercise log/reports 30 min aerobic 5 day/wk by DC, Demonstrates accurate pulse taking by DC and Other additional outcome/goals: see below Intervention & Plan Exercise Program Goals: Instruct on personal THR & RPE, Instruct on MET level & personal MET goal, Show patient to take own pulse /validate performance until accurate, Instruct on home exercise and Other additional plan/int 30-day Reassessments 30 day Reassessments:: Progressing Reassessment Notes & Comments:: pt is increasing his exercise intensity and duration Physical Activity Home Exercise Physical Activity - Home Exercise: Safe Exercise, Warm-up, Self-monitoring, Cool-Down, Home Exercise > 30 min Daily and Sitting Time <3 hours/daily Outcomes & Goals Outcomes/Goals: Demonstrates correct Warm-up/exercise Cool-Down (S3) if = 2.5 METs, Verbalizes symptoms of exercise intolerance by Session 3 (S3), Demonstrate safe equipment use (S3) & follows exercise prescrition (6) and Other: See below Intervention & Plan Plan/Intervention: Instruct warm-up & cool-down if exercising at > 2 METs, Instruct on symptoms of exercise intolerance & actions to take, Instruct & monitor on saf, Assess intial functional capacity & safety risk and Other See b elow 30-day Reassessments 30 day Reassessments:: Progressing Reassessment Notes & Comments:: instructed on proper cool down and pt demonstrates knowledge Exercise - 90-day Assessment Physician Prescribed Exercise Modalities: SciFit Stepper Exercise - Final/Discharge Physician Prescribed Exercise Modalities: SciFit Stepper Nutrition - 30-Day Assessment Weight Mgt (Other Care) Height: 6 ft 4 in Weight:: 269 lb 8 oz BMI: 32.8 Nutrition - 60-Day Assessment Program Goals Nutrition Program Goals Patient has diagnosis of Hyperlipidemia (ICD E78)?: Yes Visit Date of Eval: 04/25/24 Session #:: 11 Cholesterol/Lipids (Other Core Measures) Determine presence & major risk factors that modify LDL goal: Hypertension or hypertensive medication, Low HDL cholesterol <40 mg/dL*, Family history of premature CHD in Male < 55 years: female <65 yearsFa and Age men > 45 years; women >/= 55 years Outcomes/Goals: Pt IDs own risk factors & lifestyle modifications by Session 10, Verbalizes symptoms of angina & response by session 3., Pt independently manages and Other Additional Outcomes/Goals: Intervention/Plan: Advocate for lipid panel cholesterol medication if applicable, Instruct on personal lipid levels & lipid goals/NCEP guidelines, Instruct on cholesterol and Other additional plan/int 30-day Reassessments:: Progressing Reassessment Notes & Comments:: pt to have 1 on 1 meeting with dietary Diabetes (Other Core Measures) Diabetes Type: Diagnosis Type II ICD-10 E11 Insulin dependent injection/pump?: No Non-Insulin Dependent?: Yes Do you monitor your blood sugar at home?: Yes Referral to Diabetic Clinic:: No Outcomes/Goals:: Able to state symptoms of, Able to state, Able to state and Other additional Intervention/Plan:: Instruct on, Refer to, Instruct on and Other 30-day Reassessments:: Progressing Reassessment Notes & Comments:: pt is to have 1 on 1 meeting with dietary Weight Mgt (Other Care) Height: 6 ft 4 in Weight:: 269 lb 8 oz BMI: 32.8 Diagnosis Overweight/Obesity BMI> 30% ICD-10 E66: Yes Diagnosis High BMI/Morbid Obesity BMI> 35% ICD-10 Z68: No Outcomes/Goals: Pt sets, maintains & shows weight loss goal & trend during rehab and Other additional outcomes/goals Intervention/Plan: Instruct on ideal BMI & set weight loss goal w/patient, Assist pt to ID & incorporate diet changes for weight loss by S9, Refer to Structured Weight Loss program as appropriate, Encourage goal of using 250- 300dcal per session for weight loss and Other additional plan/interventions 30 day Reassessments:: Progressing Reassessment Notes & Comments:: pt to have 1 on 1 meeting with dietary and attend nutrition class Healthy Eating Habits Will attend diet classes:: Yes Outcomes/Goals:: Consume diet rich in vegs,fruits,whole grain/high fiber,fish,lean meat, Limit sat/trans fats,cholesterol & added salts & sugars and Other additional outcome/goals: Intervention/Plan:: Assess current eating habits and Other Additional plan/interventions 30-day Reassessments:: Progressing Reassessment Notes & Comments:: pt scheduled to attend nutrition class Education Gave educational materials for:: Signs & symptoms of hypoglycemia, Signs & symptoms of hyperglycemia, Relate diabetes to coronary artery disease and Healthy eating Core - 60-Day Assessment Visit Date of Eval: 04/25/24 Session #:: 11 Medication Compliance Preventative Medication(s):: Aspirin, Clopidogrel/P2Y12 inhibit and Statin/lipid H/O mental health issues: depression, anxiety, or addiction?: No Doesn?t believe in the benefits of treatment?: No Believes medications are unnecessary or harmful?: No Has a concern about medication side effects?: No Expresses concern over the cost of medications?: No Outcomes/Goals: Verbalizes medications,desired effect & common side effects @ DC, Pt self-reports following medication regimen, Keeps card in wallet w/medications listed by DC and Other additional outcome/goals: Interventions/plans: Instruct on medication effects & side effects, Review medication list w/patient every two weeks, Instruct importance of taking meds as ordered & assist problem solving and Other additional 30-day Reassessments:: Met Reassessment Notes & Comments:: pt taking meds as instructed Tobacco Use Tobacco Use: Non-smoker Hypertension Hypertension Diagnosis:: Hypertension ICD-10 I10 Resting Blood Pressure:: 148/52 [place] [employer] Hypertension Guidelines Peak Exercise Blood Pressure:: 170/70 Outcomes/Goals: Able to verbalize/achieve optimal blood pressure <130/80, Incorporates diet changes & exercise for blood pressure control by DC and Other additional outcomes/goals Interventions/plan: Instruct on optimal blood pressure, hypertension & medications, Instruct on effects of sodium, alcohol, stress, exercise &hypertension and Other additional plan/interventions 30 day Reassessments:: Progressing Reassessment Notes & Comments:: will continue to monitor BP. if remains elevated will send report to physician Tobacco Cessation Referral Smoking Cessation Referral:: No Individual Education/Counseling:: No Education Schedule Given:: Yes Psychosocial - 30-Day Assess Target Goals Target Goals Referral to Behavioral Health PS - Interventions: Yes: Referral to Behavioral Health if PHQ-9 score >9:, Yes: Referral to [facility], Yes: Referral to Physician if PHQ-9 if score is 5-9: and Yes: Attend Stress Management Classes Outcomes/Goals: See list Psychosocial Outcomes/Goals:: ID's personal stressors & 2 strategies to manage stress by discharge and Other Additional outcome/goals: Psychosocial - 60-Day Assess VIsit Date of Eval: 04/25/24 Session #:: 11 History of previous Mental disease:: No Target Goals Target Goals Psychosocial Test Tool Used:: [employer] QOL Cardiac and PHQ-9 Questionnaire phq-9 Severity Referral to Behavioral Health PS - Interventions: Yes: Referral to Behavioral Health if PHQ-9 score >9:, Yes: Referral to [facility], Yes: Referral to Physician if PHQ-9 if score is 5-9: and Yes: Attend Stress Management Classes Outcomes/Goals: See list Psychosocial Outcomes/Goals:: ID's personal stressors & 2 strategies to manage stress by discharge and Other Additional outcome/goals: Intervention/Plan: See List Interventions/Plan:: Assess stressors,coping strategies & signs of derpression on admission, Instruct/assist pt to develop coping & personal stress Mgt strategies, Refer to Behavioral Health if appropriate, Refer to Physician if appropriate, Instruct patient to recognize signs & symptoms of depression, Instruct patient to recog and Other additional plan/intervention 30-day Reassessments: 30 day Reassessments:: Met Reassessment Notes & Comments:: pt denies psychosocial issues Psychosocial - 90-Day Assess Target Goals Target Goals Referral to Behavioral Health PS - Interventions: Yes: Referral to Behavioral Health if PHQ-9 score >9:, Yes: Referral to [facility], Yes: Referral to Physician if PHQ-9 if score is 5-9: and Yes: Attend Stress Management Classes Psychosocial - Final Assessmen Target Goals Target Goals Referral to Behavioral Health PS - Interventions: Yes: Referral to Behavioral Health if PHQ-9 score >9:, Yes: Referral to [facility], Yes: Referral to Physician if PHQ-9 if score is 5-9: and Yes: Attend Stress Management Classes Nutrition - 90-Day Assessment Weight Mgt (Other Care) Height: 6 ft 4 in Weight:: 269 lb 8 oz BMI: 32.8 Nutrition - Final Assessment Weight Mgt (Other Care) Height: 6 ft 4 in Weight:: 269 lb 8 oz BMI: 32.8
[2024-04-25 07:17] VITALS: BP 148/52
[2024-04-25 07:25] VITALS: BP 148/52; BMI 32.8
== END 2024-05-05 23:59 ==
LOC: CR 10:15
PROVIDERS: PCP Family Medicine; Referring Provider Internal Medicine Cardiovascular Disease; Visit Provider Internal Medicine Cardiovascular Disease
DX: Z95.5 Presence of coronary angioplasty implant and graft (principal); I21.4 Non-ST elevation (NSTEMI) myocardial infarction; R07.9 Chest pain, unspecified
CPT/HCPCS: 93798; 97802

== ENCOUNTER 2024-06-04 10:15 | Outpatient (RCR) | payer MEDICARE, OTHER, SELFPAY ==
[2024-05-06 00:40] VITALS: BP 118/60; BP 148/52; BMI 34.8
--- NOTE | 2024-05-27 07:38 | PCM.CR.ITP ---
Exercise - Initial Assessment Physician Prescribed Exercise Modalities: [employer] Nutrition - Initial Assessment Weight Mgt (Other Care) Height: 6 ft Weight:: 264 lb BMI: 35.8 Psychosocial - Initial Assess Target Goals Target Goals Referral to Behavioral Health PS - Interventions: Yes: Attend Stress Management Classes Patient Health Questionnaire PHQ-9 Screening 90-Day Re-eval Assessment: 1. Little interest or pleasure in doing things: Not at all 2. Feeling down, depressed, or hopeless: Several days 3. Trouble falling or staying asleep, or sleeping too much: Not at all 4. Feeling tired or having little energy: Nearly every day 5. Poor appetite or overeating: Several days 6. Feeling bad about yourself -- or that you are a failure or have let yourself or your family down: Not at all 7. Trouble concentrating on things, such as reading the newspaper or watching television: Not at all 8. Moving or speaking so slowly that other people could have noticed. Or the opposite - being so fidgety or restless that you have been moving around a lot more than usual: Nearly every day 9. Thoughts that you would be better off , or of hurting yourself in some way: Not at all How difficult have these problems made it for you to do your work, take care of things at home, or get along with other people?: Extremely difficult Total Score: 8 Self-Efficacy 6-Item Scale 90-Day Re-eval Assessment: We would like to know how confident you are in doing certain activities. Please select your confidence level for: Fatigue Select Number: 1 Physical Discomfort or Pain Select Number: 1 Emotional Distress Select Number: 5 Other Symptoms or Health Problems Select Number: 1 Different Tasks and Activities Select Number: 1 Medication Select Number: 1 Total Score:: 1 Nutrition Survey Nutrition Survey Instructions Scoring Instructions Exercise - 30-day Assessment Physician Prescribed Exercise Modalities: [employer]pper Exercise - 60-day Assessment Physician Prescribed Exercise Modalities: [employer]pper Exercise - 90-day Assessment Visit Date of Eval: 05/27/24 Session #:: 25 Physician Prescribed Exercise Modalities: [employer] Stepper Frequency: 3x/week for 12 weeks [36 sessions] Intensity: 60-80% of age predicted maximum heart rate reserve Duration: 30 - 45 minutes Current METSs:: 3 Target Heart Rate:: 86-108 Current RPE:: 11-12 Maximum Excercise HR:: 85 Resting Blood Pressure: 134/60 Maximum Exercise Blood Pressure: 140/70 EKG Type: SB to NSR Outcomes & Goals Goals:: Verbalizes understanding of THR, RPE & goal METS by session 6, Documents in home exercise log/reports 30 min aerobic 5 day/wk by DC, Demonstrates accurate pulse taking by DC and Other additional outcome/goals: see below Intervention & Plan Exercise Program Goals: Instruct on personal THR & RPE, Instruct on MET level & personal MET goal, Show patient to take own pulse /validate performance until accurate, Instruct on home exercise and Other additional plan/int 30-day Reassessments 30 day Reassessments:: Met Reassessment Notes & Comments:: pt has met his personal exercise goals Physical Activity Home Exercise Physical Activity - Home Exercise: Safe Exercise, Warm-up, Self-monitoring, Cool-Down, Home Exercise > 30 min Daily and Sitting Time <3 hours/daily Outcomes & Goals Outcomes/Goals: Demonstrates correct Warm-up/exercise Cool-Down (S3) if = 2.5 METs, Verbalizes symptoms of exercise intolerance by Session 3 (S3), Demonstrate safe equipment use (S3) & follows exercise prescrition (6) and Other: See below Intervention & Plan Plan/Intervention: Instruct warm-up & cool-down if exercising at > 2 METs, Instruct on symptoms of exercise intolerance & actions to take, Instruct & monitor on saf, Assess intial functional capacity & safety risk and Other See below 30-day Reassessments 30 day Reassessments:: Met Exercise - Final/Discharge Physician Prescribed Exercise Modalities: [employer] Stepper Nutrition - 30-Day Assessment Weight Mgt (Other Care) Height: 6 ft Weight:: 264 lb BMI: 35.8 Nutrition - 60-Day Assessment Weight Mgt (Other Care) Height: 6 ft Weight:: 264 lb BMI: 35.8 Core - 90 Day Assessment Visit Date of Eval: 05/27/24 Session #:: 25 Medication Compliance Preventative Medication(s):: Aspirin, Clopidogrel/P2Y12 inhibit and Statin/lipid H/O mental health issues: depression, anxiety, or addiction?: No Doesn?t believe in the benefits of treatment?: No Believes medications are unnecessary or harmful?: No Has a concern about medication side effects?: No Expresses concern over the cost of medications?: No Outcomes/Goals: Verbalizes medications,desired effect & common side effects @ DC, Pt self-reports following medication regimen, Keeps card in wallet w/medications listed by DC and Other additional outcome/goals: Interventions/plans: Instruct on medication effects & side effects, Review medication list w/patient every two weeks, Instruct importance of taking meds as ordered & assist problem solving and Other additional 30-day Reassessments:: Met Tobacco Use Tobacco Use: Non-smoker Hypertension Hypertension Diagnosis:: Hypertension ICD-10 I10 Resting Blood Pressure:: 134/60 [place] [employer] Hypertension Guidelines Peak Exercise Blood Pressure:: 140/70 Outcomes/Goals: Able to verbalize/achieve optimal blood pressure <130/80, Incorporates diet changes & exercise for blood pressure control by DC and Other additional outcomes/goals Interventions/plan: Instruct on optimal blood pressure, hypertension & medications, Instruct on effects of sodium, alcohol, stress, exercise &hypertension and Other additional plan/interventions 30 day Reassessments:: Met Tobacco Cessation Referral Smoking Cessation Referral:: No Individual Education/Counseling:: No Education Schedule Given:: Yes Psychosocial - 30-Day Assess Target Goals Target Goals Referral to Behavioral Health PS - Interventions: Yes: Attend Stress Management Classes Psychosocial - 60-Day Assess Target Goals Target Goals Referral to Behavioral Health PS - Interventions: Yes: Attend Stress Management Classes Psychosocial - 90-Day Assess VIsit Date of Eval: 05/27/24 Session #:: 25 History of previous Mental disease:: No Target Goals Target Goals Psychosocial Test Tool Used:: [email or web address] QOL Cardiac and PHQ-9 Questionnaire phq-9 Severity Referral to Behavioral Health PS - Interventions: Yes: Attend Stress Management Classes Outcomes/Goals: See list Psychosocial Outcomes/Goals:: ID's personal stressors & 2 strategies to manage stress by discharge and Other Additional outcome/goals: Intervention/Plan: See List Interventions/Plan:: Assess stressors,coping strategies & signs of derpression on admission, Instruct/assist pt to develop coping & personal stress Mgt strategies, Refer to Behavioral Health if appropriate, Refer to Physician if appropriate, Instruct patient to recognize signs & symptoms of depression, Instruct patient to recog and Other additional plan/intervention 30-day Reassessments: 30 day Reassessments:: Met Psychosocial - Final Assessmen Target Goals Target Goals Referral to Behavioral Health PS - Interventions: Yes: Attend Stress Management Classes Nutrition - 90-Day Assessment Program Goals Nutrition Program Goals Patient has diagnosis of Hyperlipidemia (ICD E78)?: Yes Visit Date of Eval: 05/27/24 Session #:: 25 Cholesterol/Lipids (Other Core Measures) Determine presence & major risk factors that modify LDL goal: Cigarette smoking, Hypertension or hypertensive medication, Low HDL cholesterol <40 mg/dL*, Family history of premature CHD in Male < 55 years: female <65 yearsFa and Age men > 45 years; women >/= 55 years Outcomes/Goals: Pt IDs own risk factors & lifestyle modifications by Session 10, Verbalizes symptoms of angina & response by session 3., Pt independently manages and Other Additional Outcomes/Goals: Intervention/Plan: Advocate for lipid panel cholesterol medication if applicable, Instruct on personal lipid levels & lipid goals/NCEP guidelines, Instruct on cholesterol and Other additional plan/int 30-day Reassessments:: Met Diabetes (Other Core Measures) Diabetes Type: Diagnosis Type II ICD-10 E11 Insulin dependent injection/pump?: No Non-Insulin Dependent?: Yes Do you monitor your blood sugar at home?: Yes Referral to Diabetic Clinic:: No 30-day Reassessments:: Met Weight Mgt (Other Care) Height: 6 ft Weight:: 264 lb BMI: 35.8 Diagnosis Overweight/Obesity BMI> 30% ICD-10 E66: Yes Diagnosis High BMI/Morbid Obesity BMI> 35% ICD-10 Z68: Yes Outcomes/Goals: Pt sets, maintains & shows weight loss goal & trend during rehab and Other additional outcomes/goals Intervention/Plan: Instruct on ideal BMI & set weight loss goal w/patient, Assist pt to ID & incorporate diet changes for weight loss by S9, Refer to Structured Weight Loss program as appropriate, Encourage goal of using 250-300dcal per session for weight loss and Other additional plan/interventions 30 day Reassessments:: Progressing Reassessment Notes & Comments:: pt has lost 10 lbs since 04/30/24 Healthy Eating Habits Will attend diet classes:: Yes Outcomes/Goals:: Consume diet rich in vegs,fruits,whole grain/high fiber,fish,lean meat, Limit sat/trans fats,cholesterol & added salts & sugars and Other additional outcome/goals: Intervention/Plan:: Assess current eating habits and Other Additional plan/interventions 30-day Reassessments:: Met Education Gave educational materials for:: Signs & symptoms of hypoglycemia, Signs & symptoms of hyperglycemia, Relate diabetes to coronary artery disease and Healthy eating Nutrition - Final Assessment Weight Mgt (Other Care) Height: 6 ft Weight:: 264 lb BMI: 35.8
[2024-05-27 07:48] VITALS: BP 134/60; BMI 35.8
== END 2024-06-05 23:59 ==
LOC: CR 10:15
PROVIDERS: PCP Family Medicine; Referring Provider Internal Medicine Cardiovascular Disease; Visit Provider Internal Medicine Cardiovascular Disease
DX: I21.4 Non-ST elevation (NSTEMI) myocardial infarction (principal); R07.9 Chest pain, unspecified; Z95.5 Presence of coronary angioplasty implant and graft
CPT/HCPCS: 93798

== ENCOUNTER 2024-06-16 10:15 | Outpatient (RCR) | payer MEDICARE, OTHER, SELFPAY ==
[2024-06-06 00:44] VITALS: BP 118/60; BP 134/60; BP 148/52; BMI 34.8
== END 2024-07-05 23:59 ==
LOC: CR 10:15
PROVIDERS: PCP Family Medicine; Referring Provider Internal Medicine Cardiovascular Disease; Visit Provider Internal Medicine Cardiovascular Disease
DX: Z95.5 Presence of coronary angioplasty implant and graft (principal); I21.4 Non-ST elevation (NSTEMI) myocardial infarction; R07.9 Chest pain, unspecified
CPT/HCPCS: 93798

== ENCOUNTER → 2024-07-17 | Outpatient (CLI) | payer MEDICARE, OTHER, SELFPAY ==
[2024-07-17 11:43] VITALS: BMI 35.8
[2024-07-17 15:51] LABS: ALB/GLOB Ratio 1.2 RATIO (0.9-2.4); AST(SGOT) 12 U/L (15-37); Alanine Aminotransfer ALT/SGPT 17 U/L (16-61); Albumin, Serum 3.8 g/dL (3.2-5.0); Alkaline Phosphatase 81 U/L (45-117); Anion Gap 6 (5-15); BUN 29 mg/dL (7-18); BUN/Creat Ratio 18.1 RATIO (10-20); Calcium,Total 8.4 mg/dL (8.5-10.1); Chloride 114 mmol/L (98-107); Cholesterol 145 mg/dL (200); EST Glomerular Filtration Rate 45 mL/min (>60); Est Glom Filt Rate - Afr Amer 54 mL/min (>60); Globulin 3.1 g/dL (2.2-4.2); Glucose 103 mg/dL (74-106); High Density Lipoprotein 44 mg/dL; Potassium 4.4 mmol/L (3.5-5.1); Protein, Total 6.9 g/dL (6.4-8.2); Sodium Level 142 mmol/L (136-145); Triglycerides 133 mg/dL; Very Low Density Lipoprotein 27 mg/dL (5-40)
[2024-07-17 16:36] LABS: Hemoglobin A1c 5.3 % (3.8-5.6)
[2024-07-17 16:45] LABS: Microalbumin:Creatinine Ratio 619.8 mg/g CRE (<30 mg/g CRE)
== END | disposition home or self-care (01) ==
LOC: MFPLAB 11:44
PROVIDERS: PCP Family Medicine; Referring Provider Family Medicine; Visit Provider Family Medicine
DX: E11.9 Type 2 diabetes mellitus without complications (principal); E03.9 Hypothyroidism, unspecified
CPT/HCPCS: 36415; 80053; 80061; 82043; 82570; 83036; 84443

== ENCOUNTER 2024-10-07 07:00 | Emergency (ER) | payer MEDICARE, OTHER, SELFPAY ==
[2024-07-17 11:43] VITALS: BMI 35.8
[2024-10-07 07:00] VITALS: BP 197/93; PULSE 69; RESP 18; TEMP 35.9; O2SAT 97; BMI 34.0
--- NOTE | 2024-10-07 07:26 | ED.VIS.LOWEX ---
HPI History of Present Illness Chief Complaint: Lower Extremity Injury Informant: patient Narrative Narrative: 79-year-old male presenting to the emergency room with bleeding from right great toe. Patient states that last night around 2200 hrs. she was trimming his nails when he cut the skin on his toe. He states that he is on Plavix and aspirin due to coronary artery disease and stent placement. He states he continues to bleed particularly worse when he ambulates. He denies any other injuries. He notes he is a diabetic and hemoglobin A1c's have typically 5.1-5.5. [facility] Medical History Hyperlipidemia HTN (hypertension) CAD (coronary artery disease) Diabetes Tinea corporis Seroma of breast Cancer of left male breast Left breast lump Arthritis Gout Wears glasses Cancer Hyperthyroidism Diabetes Use of cane as ambulatory aid GERD (gastroesophageal reflux disease) Edema History of echocardiogram History of stress test Seasonal allergies Elevated blood pressure reading Impaired fasting blood sugar Breast cancer in male Home Medications ?Medication ?Instructions ?Recorded ?Last Taken ?Type omeprazole 20 mg capsule,delayed 20 mg PO DAILY GERD 01/09/14 02/13/24 History release allopurinol 300 mg tablet 300 mg PO DAILY gout 01/02/23 02/13/24 History amlodipine 10 mg tablet 10 mg PO DAILY blood pressure 01/02/23 02/13/24 History finasteride 5 mg tablet 5 mg PO DAILY prostate 01/02/23 02/13/24 History levothyroxine 150 mcg capsule 125 mcg PO DAILY thyroid 01/02/23 02/13/24 History metformin 1,000 mg tablet 1,000 mg PO BID diabetes 01/02/23 02/13/24 History Held on 02/15/24. Instructions: Resume on 02/19/24. cetirizine 10 mg capsule (Zyrtec) 10 mg PO DAILY allergies 01/16/23 02/13/24 History fluticasone propionate 50 1 spray intranasal DAILY PRN 01/16/23 Unknown History mcg/actuation nasal allergy symptoms spray,suspension aspirin 81 mg tablet,delayed 81 mg PO BREAKFAST #0 tabs 02/15/24 Unknown Rx release atorvastatin 40 mg tablet 40 mg PO DAILY #30 tabs 02/15/24 Unknown Rx clopidogrel 75 mg tablet 75 mg PO DAILY #30 tabs 02/15/24 Unknown Rx acetaminophen 650 mg 650 mg PO Q12H 03/03/24 Unknown History tablet,extended release (Tylenol Arthritis Pain) latanoprost 0.005 % eye drops 1 drp ophthalmic (eye) QPM 03/03/24 Unknown History tamoxifen 20 mg tablet 20 mg PO DAILY breast cancer 90 03/24/24 Unknown Rx days #90 tabs losartan 50 mg tablet 25 mg PO QDAY 05/26/24 Unknown History sertraline 25 mg tablet 25 mg PO QDAY 05/26/24 Unknown History Allergy/AdvReac Type Severity Reaction Status Date / Time peanut (peanuts) Allergy Intermediate Itching Verified 10/07/24 07:00 chocolate flavor AdvReac Other Verified 10/07/24 07:00 Family History Father CVA (cerebral vascular accident) Myocardial infarction Mother Lung cancer Surgical History S/P coronary artery stent placement Stented coronary artery (~02/14/24) History of lymph node dissection of left axilla S/P left mastectomy History of removal of cyst History of hand surgery History of elbow surgery History of tonsillectomy Social History Smoking Status: Former smoker alcohol intake: current substance use type: does not use ROS ROS ED Constitutional Constitutional ED: Denies chills, fever(s) or weight loss Eyes Eyes: Denies change in vision or diplopia ENT ENT ED: Denies ear pain, rhinorrhea or sore throat Cardiovascular Cardiovascular: Denies chest pain, orthopnea, palpitations or racing heartbeat Respiratory/Chest Respiratory/Chest: Denies cough, dyspnea or orthopnea Gastrointestinal Gastrointestinal: Denies abdominal pain, diarrhea, nausea or vomiting Genitourinary Genitourinary ED: Denies dysuria, hematuria or urinary frequency Musculoskeletal Musculoskeletal: Denies arthralgias or myalgias Integumentary Reports other Details: See history of present illness ; Denies abscess or rash Neurologic Neurologic: Denies headache(s) or weakness Psychiatric Psychiatric: Denies anxiety, depression, suicidal ideation or suicidal thoughts Endocrine Endocrinology: Denies polydipsia, polyphagia or polyuria Allergic/Immunologic Allergic/Immunologic ED: Denies mouth swelling, tongue swelling or urticaria EXAM Physical Exam Const Vital Signs: 10/07/24 07:00 Temperature 96.7 F L Temperature Source Temporal Pulse Rate 69 Respiratory Rate 18 Blood Pressure 197/93 H Blood Pressure Mean 127 Pulse Ox 97 Oxygen Delivery Method Room Air Positive well nourished and well developed General Appearance ED: well developed HEENT Reports normocephalic, head/scalp atraumatic and moist mucous membranes Eyes PERRL and EOMs intact bilaterally Neck no lymphadenopathy, supple and no JVD Resp normal respiratory effort and clear to auscultation bilaterally Cardio regular rate, regular rhythm and no murmurs GI normal to inspection, nondistended, normoactive bowel sounds and non-tender Palpation: soft Back/Spine no CVA tenderness and normal ROM Extremity normal to inspection General Extremety ED: Negative for edema General Extremity: Negative for edema Neuro oriented x3 and CN's II-XII intact bilaterally Sensorium / Orientation: alert Motor Exam: strength 5/5 throughout Psych mental status grossly normal Mood & Affect: Negative for depressed or tearful Skin no rashes or lesions noted Skin Narrative: On the distal end of the right great toe is a 0.5 x 0.5 triangular flap laceration. It is still in the cutaneous tissue. There is mild venous bleeding. MDM MDM MDM Narrative Medical decision making narrative: Differential diagnosis includes but not limited to laceration neurovascular injury infection skin avulsion Wound was washed with Shur-Clens and saline. The flap was laid flat resulting in good wound approximation. Direct pressure allowed for homeostasis. Small amount of Dermabond was applied. This was allowed to dry. A Band-Aid was applied. Local wound care discussed with the patient to follow-up as needed monitor for any worsening symptoms return if needed History & Record Review Discussion w/independent historian: Patient Discharge Plan Triage Chief Complaint: Lower Extremity Injury ED Provider: Ronal Vilchis Dx/Rx/DC Orders Prescriptions: No Action finasteride 5 mg tablet 5 mg PO DAILY amlodipine 10 mg tablet 10 mg PO DAILY levothyroxine 150 mcg capsule 125 mcg PO DAILY allopurinol 300 mg tablet 300 mg PO DAILY metformin 1,000 mg tablet 1,000 mg PO BID fluticasone propionate 50 mcg/actuation spray,suspension 1 spray intranasal DAILY PRN (Reason: allergy symptoms) Rx Instructions: administer into each nostril Zyrtec 10 mg capsule 10 mg PO DAILY losartan 50 mg tablet 25 mg PO QDAY sertraline 25 mg tablet 25 mg PO QDAY latanoprost 0.005 % drops 1 drp ophthalmic (eye) QPM acetaminophen [Tylenol Arthritis Pain] 650 mg tablet extended release 650 mg PO Q12H omeprazole 20 MG capsule 20 mg PO DAILY aspirin 81 mg Tablet,Delayed Release (Dr/Ec) 81 mg PO BREAKFAST Qty: 0 0RF atorvastatin 40 mg tablet 40 mg PO DAILY Qty: 30 0RF clopidogrel 75 mg tablet 75 mg PO DAILY Qty: 30 0RF tamoxifen 20 mg tablet 20 mg PO DAILY 90 Days Qty: 90 3RF Primary Care Provider: Saurabh Ferrer Referrals: Saurabh Ferrer MD [Primary Care Provider] - Print Language: Korean
[2024-10-07 08:17] VITALS: BP 150/88; PULSE 52; RESP 16; TEMP 35.8; O2SAT 97
== END 2024-10-07 08:18 | disposition home or self-care (01) ==
LOC: ED 07:39
PROVIDERS: Emergency Provider Emergency Medicine; PCP Family Medicine; Visit Provider Emergency Medicine
DX: S91.111A Laceration without foreign body of right great toe without damage to nail, initial encounter (principal); E11.9 Type 2 diabetes mellitus without complications; E78.5 Hyperlipidemia, unspecified; I10 Essential (primary) hypertension; I25.10 Atherosclerotic heart disease of native coronary artery without angina pectoris; Z87.891 Personal history of nicotine dependence; Z85.3 Personal history of malignant neoplasm of breast; Z95.5 Presence of coronary angioplasty implant and graft; W27.8XXA Contact with other nonpowered hand tool, initial encounter; E05.00 Thyrotoxicosis with diffuse goiter without thyrotoxic crisis or storm
CPT/HCPCS: 12001; 99282

== ENCOUNTER → 2024-10-15 | Outpatient (CLI) | payer MEDICARE, OTHER, SELFPAY ==
[2024-07-17 11:43] VITALS: BMI 35.8
[2024-10-15 12:51] LABS: ALB/GLOB Ratio 1.6 RATIO (0.9-2.4); AST(SGOT) 16 U/L (<=37); Alanine Aminotransfer ALT/SGPT 8 U/L (<=46); Albumin, Serum 4.3 g/dL (3.4-4.8); Alkaline Phosphatase 81 U/L (40-129); Anion Gap 12 (5-15); BUN 27 mg/dL (4-19); BUN/Creat Ratio 17.8 RATIO (10-20); Calcium,Total 9.2 mg/dL (7.6-11.0); Chloride 110 mmol/L (98-108); Cholesterol 134 mg/dL (<=200); Creatinine, Serum 1.53 mg/dL (0.70-1.20); EST Glomerular Filtration Rate 47 (>60); Globulin 2.7 g/dL (2.2-4.2); Glucose 106 mg/dL (70-99); High Density Lipoprotein 41 mg/dL; Low Density Lipoprotein Calc. 50 mg/dL; Potassium 4.5 mmol/L (3.3-5.1); Sodium Level 142 mmol/L (133-145); Total Bilirubin 0.65 mg/dL (0.00-1.30); Triglycerides 217 mg/dL; Very Low Density Lipoprotein 43 mg/dL (5-40); cholesterol:hdl ratio screen 3.31
[2024-10-15 18:04] LABS: Microalbumin:Creatinine Ratio 9253.2 mg/g CRE
== END | disposition home or self-care (01) ==
LOC: MFPLAB 10:33
PROVIDERS: PCP Family Medicine; Referring Provider Family Medicine; Visit Provider Family Medicine
DX: E11.9 Type 2 diabetes mellitus without complications (principal); E03.9 Hypothyroidism, unspecified
CPT/HCPCS: 36415; 80053; 80061; 82043; 82570; 84443

== ENCOUNTER → 2024-12-02 | Outpatient (CLI) | payer MEDICARE, OTHER, SELFPAY ==
[2024-07-17 11:43] VITALS: BMI 35.8
--- NOTE | 2024-12-02 07:27 | ECHOD_ITS ---
Reason For Study Reason For Study: Dyspnea/SOB Procedure This was a 2D Doppler, Color Flow transthoracic echocardiogram. Myocardial strain analysis was performed in this exam to aid in the assessment of cardiac function. Exam performed in department. Left Ventricle Moderate concentric left ventricular hypertrophy. Normal LV size. The LV systolic function is normal. EF is 65 %. Stage 1 diastolic dysfunction. Right Ventricle Normal right ventricle. Atria The left and right atria are normal. Mitral Valve Moderate mitral annular calcification. Trivial mitral valve insufficiency. Tricuspid Valve Trivial tricuspid valve insufficiency. Normal pulmonary artery pressure. Aortic Valve Trisinus/trileaflet aortic valve. Trivial aortic valve insufficiency. Pulmonic Valve The pulmonic valve is not well visualized. Great Vessels Normal aortic root. Pericardium/Pleural No pericardial effusion. MMode/2D Measurements & Calculations LVIDd: 4.0 cm IVSd: 1.6 cm Ao root diam: 3.2 cm LVIDs: 2.3 cm LVPWd: 1.7 cm RVDd: 3.9 cm FS: 43.3 % LAV(MOD-bp): 59.8 ml LVAd ap4: 26.1 cm2 SV(MOD-sp4): 57.4 ml LAV(MOD-bp) Indexed: 24.0 ml/m2 LVLd ap4: 7.4 cm SI(MOD-sp4): 23.0 ml/m2 LAV(MOD-sp2): 75.8 ml EDV(MOD-sp4): 77.0 ml LAV(MOD-sp4): 46.0 ml EDV(sp4-el): 78.4 ml LVAs ap4: 11.7 cm2 LVLs ap4: 5.9 cm ESV(MOD-sp4): 19.5 ml ESV(sp4-el): 19.8 ml EF(MOD-sp4): 74.6 % EF(sp4-el): 74.8 % SV(sp4-el): 58.6 ml LA A4 area: 18.4 cm2 LA dimension(2D): 3.4 cm RA A4 area: 16.6 cm2 TAPSE: 3.0 cm Time Measurements MV dec time: 0.31 sec Doppler Measurements & Calculations MV E max adalid: 99.2 cm/sec Lat Peak E' Adalid: 11.1 cm/sec Med Peak E' Adalid: 5.1 cm/sec MV A max adalid: 130.5 cm/sec E/E' lat: 9.0 E/E' med: 19.5 MV E/A: 0.76 MV V2 max: 145.3 cm/sec Ao V2 max: 173.9 cm/sec MV max P.4 mmHg MV dec slope: 321.3 cm/sec2 Ao max P.1 mmHg MV V2 mean: 74.1 cm/sec Ao V2 mean: 131.1 cm/sec MV mean P.6 mmHg Ao mean P.5 mmHg MV V2 VTI: 57.7 cm Ao V2 VTI: 47.2 cm AV (velocity ratio): 0.74 LV V1 max: 140.2 cm/sec PA V2 max: 113.7 cm/sec TR max adalid: 221.1 cm/sec LV V1 max P.9 mmHg TR max P.6 mmHg LV V1 mean P.5 mmHg LV V1 mean: 101.6 cm/sec LV V1 VTI: 35.0 cm ECHO/Echo Complete Interpretation Summary The LV systolic function is normal. EF is 65 %. Stage 1 diastolic dysfunction. Moderate mitral annular calcification. Ordering Physician: Daiana Case Referring Physician: Saurabh Ferrer Performed By: Maria Del Carmen Hollis, KASI, RVT
--- NOTE | 2024-12-03 15:19 | STRESSREP ---
Stress Test Report Date: 12/02/2024 Procedure: Pharmacologic stress nuclear imaging study Indications: Dyspnea on exertion Consent: Per the patient Procedure: The patient underwent pharmacologic (Regadenoson 0.4mg ) evaluation with a peak heart rate of 63 beats per minute (44%predicted maximal heart rate) and a peak blood pressure of 158/70 mmHg. The baseline ECG demonstrated sinus bradycardia. The peak pharmacologic ECG demonstrated no ischemic changes. There were no cardiac dysrhythmias pretest, during pharmacologic infusion, or recovery. There was no complaint of chest discomfort during pharmacologic infusion or recovery. The patient was injected with 14.7 millicuries of technetium 99m Cardiolite and subsequently rest SPECT Cardiolite nuclear imaging was obtained in the horizontal long, vertical long, and short axis views. The patient underwent pharmacologic (Regadenoson) evaluation. The patient was injected with 45.5 millicuries of technetium 99m Cardiolite and subsequently stress SPECT Cardiolite nuclear imaging was obtained in the horizontal long, vertical long, and short axis views. A gated Cardiolite study at peak stress was obtained. The examination was stopped secondary to completion of protocol. Rest and stress SPECT Cardiolite nuclear imaging status post realignment, normalization, and attenuation correction demonstrate no fixed or reversible perfusion defects. There is end systolic thickening and brightening. The gated Cardiolite study demonstrates myocardial thickening and inward wall motion. The reported LVEF is 56%. Impression: 1. Pharmacologic (Regadenoson) evaluation 2. Peak pharmacologic ECG with no ischemic changes. 3. There were no cardiac dysrhythmias pretest, during pharmacologic infusion, or recovery. 5. Rest and stress SPECT Cardiolite nuclear imaging demonstrate relative uniform tracer uptake and myocardial perfusion appearing within normal limits. 6. The gated Cardiolite study reports an LVEF of 56%. This note was generated with [employer] software. It may contain incorrect words, spelling, and punctuation that were not noted in checking the note before signing.
== END | disposition home or self-care (01) ==
LOC: CVS 07:26
PROVIDERS: PCP Family Medicine; Referring Provider Internal Medicine Cardiovascular Disease; Visit Provider Internal Medicine Cardiovascular Disease
DX: R06.09 Other forms of dyspnea (principal); I25.10 Atherosclerotic heart disease of native coronary artery without angina pectoris; Z95.5 Presence of coronary angioplasty implant and graft
CPT/HCPCS: 78452; 93017; 93225; 93226; 93306; A9500; A4216; J2785

== ENCOUNTER → 2024-12-17 | Outpatient (CLI) | payer MEDICARE, OTHER, SELFPAY ==
[2024-07-17 11:43] VITALS: BMI 35.8
[2024-12-17 13:46] LABS: Free T3 2.1 pg/mL (2.18-3.98)
== END | disposition home or self-care (01) ==
LOC: MFPLAB 11:09
PROVIDERS: PCP Family Medicine; Referring Provider Family Medicine; Visit Provider Family Medicine
DX: E03.9 Hypothyroidism, unspecified (principal)
CPT/HCPCS: 36415; 84439; 84443; 84481

== ENCOUNTER → 2025-03-16 | Outpatient (CLI) | payer MEDICARE, OTHER, SELFPAY ==
[2024-07-17 11:43] VITALS: BMI 35.8
[2025-03-16 12:38] LABS: AST(SGOT) 18 U/L (<=37); Alanine Aminotransfer ALT/SGPT 12 U/L (<=46); Albumin, Serum 4.0 g/dL (3.4-4.8); Alkaline Phosphatase 86 U/L (40-129); Anion Gap 13 (5-15); BUN 42 mg/dL (4-19); BUN/Creat Ratio 20.0 RATIO (10-20); Calcium,Total 9.0 mg/dL (7.6-11.0); Carbon Dioxide 17.1 mmol/L (21.0-32.0); Chloride 111 mmol/L (98-108); Cholesterol 139 mg/dL (<=200); Globulin 2.6 g/dL (2.2-4.2); Glucose 96 mg/dL (70-99); Low Density Lipoprotein Calc. 71 mg/dL; Potassium 5.5 mmol/L (3.3-5.1); T3 Total - Triiodothyronine 0.77 ng/mL (0.80-2.00); Triglycerides 106 mg/dL; Very Low Density Lipoprotein 21 mg/dL (5-40); cholesterol:hdl ratio screen 3.00
== END | disposition home or self-care (01) ==
LOC: MFPLAB 10:32
PROVIDERS: PCP Family Medicine; Visit Provider Family Medicine
DX: E03.9 Hypothyroidism, unspecified (principal); E11.9 Type 2 diabetes mellitus without complications
CPT/HCPCS: 36415; 80053; 80061; 84439; 84443; 84480

== ENCOUNTER → 2025-05-21 | Outpatient (CLI) | payer MEDICARE, OTHER, SELFPAY ==
[2024-07-17 11:43] VITALS: BMI 35.8
[2025-05-21 17:12] LABS: AST(SGOT) 18 U/L (<=37); Alanine Aminotransfer ALT/SGPT 12 U/L (<=46); Albumin, Serum 4.0 g/dL (3.4-4.8); Alkaline Phosphatase 89 U/L (40-129); Anion Gap 9 (5-15); BUN 35 mg/dL (4-19); BUN/Creat Ratio 20.3 RATIO (10-20); Calcium,Total 8.8 mg/dL (7.6-11.0); Carbon Dioxide 18.2 mmol/L (21.0-32.0); Chloride 113 mmol/L (98-108); Globulin 2.5 g/dL (2.2-4.2); Glucose 96 mg/dL (70-99); Potassium 5.4 mmol/L (3.3-5.1)
== END | disposition home or self-care (01) ==
LOC: LAB 14:50
PROVIDERS: PCP Family Medicine; Referring Provider Internal Medicine Cardiovascular Disease; Visit Provider Internal Medicine Cardiovascular Disease
DX: R06.09 Other forms of dyspnea (principal); I10 Essential (primary) hypertension; R00.1 Bradycardia, unspecified
CPT/HCPCS: 36415; 80053

== ENCOUNTER → 2025-05-28 | Outpatient (CLI) | payer MEDICARE, OTHER, SELFPAY ==
[2024-07-17 11:43] VITALS: BMI 35.8
[2025-05-28 11:20] LABS: Anion Gap 10 (5-15); BUN 33 mg/dL (4-19); BUN/Creat Ratio 19.9 RATIO (10-20); Calcium,Total 8.7 mg/dL (7.6-11.0); Carbon Dioxide 18.9 mmol/L (21.0-32.0); Chloride 111 mmol/L (98-108); Glucose 100 mg/dL (70-99); Potassium 5.0 mmol/L (3.3-5.1)
[2025-05-28 13:43] LABS: AST(SGOT) 20 U/L (<=37); Alanine Aminotransfer ALT/SGPT 15 U/L (<=46); Albumin, Serum 3.9 g/dL (3.4-4.8); Alkaline Phosphatase 93 U/L (40-129); Bilirubin, Direct 0.21 mg/dL (0.00-0.30); Cholesterol 163 mg/dL (<=200); Globulin 2.6 g/dL (2.2-4.2); Low Density Lipoprotein Calc. 95 mg/dL; Triglycerides 143 mg/dL; Very Low Density Lipoprotein 29 mg/dL (5-40); cholesterol:hdl ratio screen 3.78
== END | disposition home or self-care (01) ==
PROVIDERS: Nurse Practitioner Family; PCP Family Medicine; Referring Provider Internal Medicine Cardiovascular Disease; Visit Provider Internal Medicine Cardiovascular Disease
DX: I25.10 Atherosclerotic heart disease of native coronary artery without angina pectoris (principal); I12.9 Hypertensive chronic kidney disease with stage 1 through stage 4 chronic kidney disease, or unspecified chronic kidney disease; N18.9 Chronic kidney disease, unspecified; E78.00 Pure hypercholesterolemia, unspecified
CPT/HCPCS: 36415; 80048; 80061; 80076

== ENCOUNTER → 2025-07-08 | Outpatient (CLI) | payer MEDICARE, OTHER, SELFPAY ==
[2024-07-17 11:43] VITALS: BMI 35.8
== END | disposition home or self-care (01) ==
LOC: PSN 08:12
PROVIDERS: PCP Family Medicine; Referring Provider Nurse Practitioner Gerontology; Visit Provider Nurse Practitioner Gerontology
DX: R00.2 Palpitations (principal); R00.1 Bradycardia, unspecified; Z95.5 Presence of coronary angioplasty implant and graft
CPT/HCPCS: 93225; 93226